=== PATIENT | male | born 1945 | race Caucasian/White ===

== ENCOUNTER 2024-02-24 23:26 | Emergency (ER) | payer OTHER, SELFPAY ==
--- NOTE | ~2024-02-24 | CT_ITS ---
Clinical Indication: Chest pain CT Scan of the Chest with Contrast: Technique: Contiguous sections were acquired throughout the chest after intravenous administration of 100 cc of Omnipaque 350. Dose reduction technique was used on this scan by utilizing automated expos ure control and iterative reconstruction technique. The dose-length product (DLP) was 235.57 mGy-cm. Findings: There is no evidence of any significant mediastinal, hilar or axillary lymphadenopathy. There is no f illing defect in the pulmonary arterial tree to suggest pulmonary embolus. There is no evidence of ao rtic dissection or aneurysm. There is no evidence of pleural or pericardial effusion. Calcified right basilar pleural plaque prese nt. There is focal right basilar scarring or atelectasis. There is linear scarring left lung base. No pul monary nodule or consolidation present otherwise. Images through the upper abdomen reveal small nonobstructing right renal stones. There is extensive a therosclerotic calcification of the visualized abdominal aorta. Impression: No evidence of pulmonary embolus, aortic dissection, or aortic aneurysm. No significant pulmonary abnormality. Calcified right basilar pleural plaque. Reviewed, dictated and finalized at location . Impression: No evidence of pulmonary embolus, aortic dissection, or aortic aneurysm. No significant pulmonary abnormality. Calcified right basilar pleural plaque.
[2024-02-24 23:35] VITALS: BP 207/80; PULSE 65; RESP 14; TEMP 36.6; O2SAT 100
--- NOTE | 2024-02-24 23:36 | ECG_ITS ---
Test Date: 2024-02-24 23:38:01 Measurements Intervals [place] Rate: 60 P: 66 CA: 143 QRS: -21 QRSD: 148 T: 54 QT: 461 QTc: 462 Interpretive Statements SINUS RHYTHM RIGHT BUNDLE BRANCH BLOCK CONSIDER INFERIOR INFARCT, AGE INDETERMINATE ABNORMAL ECG No previous ECG available for comparison Electronically Signed On 02-25-2024 05:46:39 CDT by Chidi Blackwood D.O.
[2024-02-24 23:38] VITALS: PULSE 64
[2024-02-24 23:39] VITALS: BP 178/69; PULSE 60; RESP 17; TEMP 36.4; O2SAT 100
--- NOTE | 2024-02-24 23:40 | ED.CHESTPAIN ---
HPI - Chest Pain General Chief Complaint: Chest Pain Stated Complaint: chest pain Time Seen by Provider: 02/24/24 23:28 History of Present Illness HPI narrative: 78-year-old male history of valve replacement and triple-vessel CABG approximately 8 years ago presenting to the emergency department for evaluation for right-sided chest pain that has been ongoing for the past 5 days. Patient states the pain did worsen today. Patient denies any associated shortness of breath with this. Patient does suspect this is a muscular strain because he did lift a heavy bag of grain the day that the pain started. Related Data Home Medications Medication Instructions Recorded Confirmed Nitrol 02/24/24 amlodipine 5 mg tablet mg 02/24/24 atorvastatin 40 mg tablet 40 mg PO DAILY 02/24/24 citalopram 20 mg tablet 20 mg PO DAILY 02/24/24 clopidogrel 75 mg tablet (Plavix) mg 02/24/24 metoprolol tartrate 50 mg tablet 50 mg PO BID 02/24/24 Allergies Allergy/AdvReac Type Severity Reaction Status Date / Time meperidine [From Demerol] Allergy Anaphylaxis Verified 02/24/24 23:44 Review of Systems Review of Systems: All systems reviewed & are unremarkable except as noted in HPI and below Exam Narrative: APPEARANCE: Well appearing, no pain, no distress, well-nourished. HEAD: normocephalic, atraumatic. EYES: PERRLA/EOMI, conjunctivae clear. NOSE: Normal no drainage EARS:TMS clear with good light reflex. THROAT: Pharynx clear, no exudate. NECK: Supple. No adenopathy, no masses. RESPIRATORY: Airway patent, respirations nonlabored. Clear to auscultation bilaterally, no rales, rhonchi, wheezing. CARDIOVASCULAR: Regular rate and rhythm without murmurs rubs or gallops. ABDOMINAL: Soft, nontender, nondistended, normal bowel sounds MUSCULOSKELETAL: Chest wall tenderness NEURO: Alert. Cranial nerves II through XII intact. Grossly intact SKIN: Warm, dry. Normal Color Course Course Emergency Course: Patient family updated the results of the workup they are comfortable with plan for discharge home. Vital Signs Vital signs: Vital Signs Temperature 97.9 F 02/24/24 23:35 Pulse Rate 65 02/24/24 23:35 Respiratory Rate 14 02/24/24 23:35 Blood Pressure 207/80 H 02/24/24 23:35 Pulse Oximetry 100 02/24/24 23:35 Oxygen Delivery Room Air 02/24/24 23:35 Temperature 98.9 F 02/25/24 03:29 Pulse Rate 86 02/25/24 03:29 Respiratory Rate 16 02/25/24 03:29 Blood Pressure 117/78 02/25/24 03:29 Pulse Oximetry 98 02/25/24 03:29 Oxygen Delivery Room Air 02/24/24 23:38 MDM - Chest Pain MDM Narrative Medical decision making narrative: 78-year-old male present to the emergency department for evaluation for right-sided chest pain. Patient is afebrile with no leukocytosis and a stable hemoglobin of 12.8. Patient's D-dimer was elevated at 0.73 but patient had no acute pulmonary embolism. Patient's potassium was mildly elevated at 5.1 sodium was 131. Patient had no other acute abnormalities on his CMP patient had negative delta troponins. EKG showed right bundle-branch but no evidence of acute STEMI. Patient's pain was resolved with pain medications both unchanged by nitro. Patient's pain has been ongoing constantly for the past 5 days, low concern for ACS. Differential Diagnosis Differential diagnosis: Likely pneumothorax, stable angina, unstable angina pectoris, atypical chest pain, st elevation myocardial infarction, costochondritis, chest pain, biliary colic and other Lab Data Attestation: I reviewed the patient's lab results. 02/24/24 23:50 02/24/24 23:50 Labs: Lab Results 02/24/24 02/25/24 Range/Units 23:50 02:38 WBC 4.9 (4.5-10.0) K/mm3 RBC 4.18 L (4.6-6.20) M/mm3 Hgb 12.8 L (14.0-18.0) g/dL Hct 39.0 L (42.0-52.0) % MCV 93.3 (80-100) fl MCH 30.6 (26-34) pg MCHC 32.8 (32-36) g/dl RDW 15.0 H (11.5-14.5) % Plt Count 172 (150-375) k/mm3
--- NOTE | 2024-02-24 23:45 | PC.NURSE ---
pt currently unable to provide medication list
[2024-02-24] MEDS: NITROGLYCERIN SL 0.4 MG TABLET SUBLINGUAL (23:47)
[2024-02-24] MEDS: ASPIRIN 81 MG CHEWABLE TABLET 324 MG PO (23:47)
[2024-02-24 23:56] LABS: Basophils Percent Auto 0.6 % (0.2-1.2); Eosinophils Absolute Auto 0.1 K/mm3 (0-0.3); Eosinophils Percent Auto 1.4 % (0-4.4); Hemoglobin 12.8 g/dL (14.0-18.0); Immature Granulocyte Absolute 0.01 K/mm3 (0.00-0.031); Immature Granulocyte Percent A 0.2 % (0-0.5); Lymphocytes Absolute Auto 0.56 K/mm3 (0.9-3.2); Lymphocytes Percent Auto 11.5 % (18.3-44.2); Mean Corpuscular HGB Conc 32.8 g/dl (32-36); Mean Corpuscular Hemoglobin 30.6 pg (26-34); Mean Corpuscular Volume 93.3 fl (80-100); Monocytes Absolute Auto 0.6 K/mm3 (0.1-0.6); Monocytes Percent Auto 11.5 % (2.6-8.5); Neutrophils Absolute Auto 3.6 K/mm3 (1.3-6.7); Neutrophils Percent Auto 74.8 % (45.5-73.1); Platelet Count Result 172 k/mm3 (150-375); Red Blood Count 4.18 M/mm3 (4.6-6.20); White Blood Count 4.9 K/mm3 (4.5-10.0)
[2024-02-25 00:05] VITALS: BP 154/77; PULSE 58; RESP 18; O2SAT 98
[2024-02-25 00:06] LABS: Alanine Aminotransferase 19 U/L (6-50); Albumin Level 4.2 g/dL (3.5-5.1); Alkaline Phosphatase 77 U/L (38-126); Anion Gap 9 mmol/L (4-12); Aspartate Amino Transferase 35 U/L (17-59); Bilirubin,Total 0.3 mg/dL (0.2-1.3); Blood Urea Nitrogen 34 mg/dL (9-20); Calcium 8.9 mg/dL (8.4-10.2); Carbon Dioxide 23 mmol/L (22-30); Chloride 99 mmol/L (98-107); Estimated CRCL calculation 39 ml/min; Estimated Glomerular Filt Rate 53; Glucose 124 mg/dL (65-110); Potassium 5.1 mmol/L (3.4-5.0); Sodium 131 mmol/L (137-145)
[2024-02-25 00:11] LABS: D Dimer 0.73 ug/mL (<0.48)
[2024-02-25] MEDS: HYDROmorphone HCL INJ (*CRX) 1 MG/ML SYR 0.5 MG IV PUSH (00:16)
[2024-02-25 00:19] LABS: Troponin I 0.012 ng/mL (0.000-0.034)
[2024-02-25 01:00] VITALS: BP 164/73; PULSE 60; RESP 15; O2SAT 97
[2024-02-25 02:00] VITALS: BP 160/84; PULSE 61; RESP 18; O2SAT 97
--- NOTE | 2024-02-25 02:35 | ECG_ITS ---
Test Date: 2024-02-25 02:44:08 Measurements Intervals [place] Rate: 58 P: 62 [place]: 147 QRS: -34 QRSD: 146 T: 67 QT: 471 QTc: 467 Interpretive Statements SINUS BRADYCARDIA RIGHT BUNDLE BRANCH BLOCK INFERIOR INFARCT, AGE INDETERMINATE ABNORMAL ECG Compared to ECG 02/24/2024 23:38:01 NO SIGNIFICANT CHANGE Electronically Signed On 02-25-2024 05:47:56 CDT by Chidi Blackwood D.O.
[2024-02-25 03:03] LABS: Troponin I 0.016 ng/mL (0.000-0.034)
[2024-02-25 03:29] VITALS: BP 117/78; PULSE 86; RESP 16; TEMP 37.2; O2SAT 98
== END 2024-02-25 03:30 | disposition home or self-care (01) ==
PROVIDERS: Emergency Provider Emergency Medicine
DX: R07.9 Chest pain, unspecified (principal); Z95.1 Presence of aortocoronary bypass graft; Z95.2 Presence of prosthetic heart valve; Z79.02 Long term (current) use of antithrombotics/antiplatelets; Z79.899 Other long term (current) drug therapy
CPT/HCPCS: 36415; 71275; 80053; 84484; 85025; 85380; 93005; 96374; 99284; A9270; J1170; Q9967

== ENCOUNTER 2024-11-06 17:40 | Emergency (ER) | payer MEDICARE, SELFPAY ==
[2024-11-06] VITALS (13 sets, daily range): BP systolic 97–147; BP diastolic 45–68; PULSE 44–59; RESP 13–18; TEMP 36.4; O2SAT 98–100
--- NOTE | ~2024-11-06 | CT_ITS ---
EXAMINATION: CTA chest PE protocol DATE: 11/06/2024 21:45 INDICATION: chest pain, near syncope, elev dimer TECHNIQUE: Computed tomography angiography (CTA) of the chest was performed with 100 mL Omnipaque-350 intravenous contrast timed to evaluate the pulmonary arteries. Coronal maximum intensity projection 3D-reconstructions were created by the technologist. The dose-length product (DLP) was 270.28 mGy-cm. Automated exposure control and iterative reconstruction technique were employed. COMPARISON: 02/24/2024. FINDINGS: Lung parenchyma and airways: Biapical pleural scarring. Bibasilar scarring and septal thickening. Mil d scattered groundglass opacities and scattered air cysts. Patent airways. Pleura: Pleural calcification. Thoracic inlet, axillae and chest wall: Unremarkable. Thoracic aorta: No significant dilation. No dissection. Atherosclerotic calcifications. Mediastinum: Dilated central pulmonary arteries as can be seen with pulmonary hypertension. Heart and pericardium: Cardiomegaly. Aortic valve replacement. Mitral calcification. Coronary artery calcifications: Moderate. Upper abdomen: No significant finding. Bones: No acute osseous finding. Degenerative changes in the shoulders. Pulmonary arteries: Study quality: Adequate. No pulmonary emboli detected. IMPRESSION: No CT evidence of acute pulmonary embolus. 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 Reviewed, dictated and finalized at location K.
--- NOTE | ~2024-11-06 | XR_ITS ---
EXAMINATION: XR chest 1V Exam Date/Time: 11/06/2024 20:49 CDT HISTORY: CHEST PAIN Comparison: None. RESULT: Lines, tubes, and devices: Intact sternotomy wires. Cardiac valve replacement. Lungs and pleura: Streaky and patchy bibasilar opacities. Mild bilateral costophrenic angle blunting . Mild peripheral reticular opacities. Cardiomediastinal silhouette: Unremarkable. Other: No acute osseous or upper abdominal finding. Degenerative changes in the bilateral shoulders, severe on the left IMPRESSION: Mild edema versus interstitial change. Trace bilateral pleural effusions or chronic pleural blunting. Reviewed, dictated and finalized at location K. IMPRESSION: Mild edema versus interstitial change. Trace bilateral pleural effusions or chr onic pleural blunting.
--- NOTE | ~2024-11-06 | CT_ITS ---
EXAMINATION: CTA brain carotid DATE: 11/06/2024 20:53 INDICATION: dizziness, near syncope w/ 5 falls TECHNIQUE: Computed tomographic angiography (CTA) of the head was performed without and with 100 mL O mnipaque-350 intravenous contrast. CTA of the neck was performed with intravenous contrast. Automated exposure control and iterative reconstruction technique were employed. The dose-length product was 2 742.89 mGy-cm. Maximum intensity projection and volume rendered 3D-reconstructions were created by stefano neff technologist on a separate workstation. COMPARISON: None. FINDINGS: CT BRAIN: No acute large vessel infarct, intracranial hemorrhage, mass, or hydrocephalus. Mild atrophy and education dean bella white matter change. Atherosclerotic intracranial calcification. Bilateral basal ganglia calcific ation. CTA HEAD: No large vessel occlusion, aneurysm, high flow vascular malformation, nidus or extravasation. Multifo nanci moderate and severe short segment stenoses in the posterior circulation, most notably at the basi lar tip. 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 Heavy atherosclerotic calcific ation of the cavernous portions of the carotids, with mild-moderate stenoses. Additional scattered ar eas of atherosclerotic narrowing elsewhere in the cranial circulation. Patent cerebral veins. Symmetr ic parenchymal enhancement. CTA NECK: Aortic arch and proximal great vessels: Normal arch anatomy. Atherosclerotic calcifications at the vi sualized aortic arch and proximal great vessels. Right common carotid, carotid bifurcation, and internal carotid artery: Calcified atherosclerotic nicole que at the carotid bifurcation.There is 76% stenosis of the proximal right internal carotid artery re lative to normal distal artery lumen diameter (NASCET criteria). Left common carotid, carotid bifurcation, and internal carotid artery: Calcified atherosclerotic plaq ue at the carotid bifurcation.There is 45% stenosis of the proximal left internal carotid artery rela tive to normal distal artery lumen diameter (NASCET criteria). Vertebral arteries: Severe stenosis of the origin of the dominant left vertebral artery. The right ve rtebral artery is hypoplastic. No flow is detected in the proximal right vertebral artery from its or igin to the level of C6. Other findings: Multilevel degenerative disease in the cervical spine. Biapical pleural scarring. IMPRESSION: No acute intracranial process. No large vessel intracranial occlusion or aneurysm. 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 Severe stenosis of the proximal right internal carotid artery at the bifurcation. Severe stenosis of the origin of the left vertebral artery. Hypoplastic right vertebral artery, with slow or absent flow proximally, and reconstitution/visualiza tion at the level of C6. Reviewed, dictated and finalized at location K. IMPRESSION: No acute intracranial process. No large vessel intracranial occlusion or aneurysm. 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 Severe stenosis of the proximal right internal carotid artery at the bifurcatio n. Severe stenosis of the origin of the left vertebral artery. Hypoplastic right vertebral artery, with slow or absent flow proximally, and re constitution/visualization at the level of C6.
--- NOTE | 2024-11-06 17:54 | ECG_ITS ---
Test Date: 2024-11-06 17:58:18 Measurements Intervals [place] Rate: 52 P: 68 RI: 146 QRS: -51 QRSD: 149 T: 73 QT: 490 QTc: 458 Interpretive Statements SINUS BRADYCARDIA WITH ATRIAL PREMATURE COMPLEX RIGHT BUNDLE BRANCH BLOCK LEFT ANTERIOR FASCICULAR BLOCK BASELINE ARTIFACT- I, II, III, AVR, AVL, V1-V2 ABNORMAL ECG Compared to ECG 02/25/2024 02:44:08 Left anterior fascicular block now present Electronically Signed On 11-06-2024 19:31:36 CDT by Chidi Blackwood D.O.
--- OUTSIDE RECORDS SUMMARY | 2024-11-06 18:18 | XMS_ITS | Encounter Summary ---
Author Organization [facility] Address [address] [place] [address] Care Team Providers Care Art Psychotherapist Name Role Phone Emeka Ibanez MD Primary Care Provider [phone] Reason for Visit * Reason Comments Question Encounter Details Date Type Department Care Team (Late st Contact Info) Description 09/07/2024 Telephone [facility] Internal Medicine [address] [phone] Emeka Ibanez [place] [id number] [place] [address] [address] [place] [address] Question Social History Tobacco Use Types Packs/Day Years Used Date Smoking Tobacco: Former Cigarettes Q uit: 06/08/2002 Passive Smoke Exposure: Past Smokeless Tobacco: Never Alcohol Use Standard Drinks/Week Comments No 0 (1 standard drink = 0.6 oz pur e alcohol) Financial Resource Strain Answer Date R ecorded How hard is it for you to pa y for the very basics like food, housing, medical care, and heating? Not hard at all 2022 Food Insecurity Answer Date Recorded In the past 12 months, have you worried that your food would run out before you had money to buy more? Never true 2022 In the past 12 months, did y ou run out of food and didn't have money to buy more? Never true 2022 Transportation Needs Answer Date Record ed In the past 12 months, has l ack of transportation kept you from medical appointments or from getting medications? 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 No answer. No voicemail or answering machine. Will continue to try to contact. If patient/caregiver calls back, contact center please transfer caller to clinic back line. Rosa * Telephone Encounter - Mario Alberto Hinton - 09/07/2024 11:34 AM CDT Copied from [facility] #[id number]. Topic: Patient or Caregiver Communication Request >> Sep 07, 2024 11:28 AM Mario Alberto Garcia wrote: Patient or Caregiver requesting that a message be sent to Care Team Caller: Kermit Noe Patient/Caregiver Callback Number: [phone] Call Notes: Patient received a call (11.33am) and is requesting a callback regarding his video visit. documented in this encounter Plan of Treatment Not on file documented as of this encounter Visit Diagnoses Not on filedocumented in this encounter Care Teams Art Psychotherapist Relationship Specialty Start [place] [address] [place] [address] PCP - General 10/09/05 documented as of this encounter
--- OUTSIDE RECORDS SUMMARY | 2024-11-06 18:19 | XMS_ITS | Continuity of Care Document ---
Author Organization [facility] Address [address] [place] [address] Phone Care Team Providers Care Boat Fueler Name Role Phone Unavailable Unavailable Unavailable Advance Directives Directive Yes / No Effective Date File Name No Information Encounters Encounter Description Practice Location Reason(s) For Visit Diagnoses Date Provider Providers Copied on Encounter [facility], [address], [place], [place], [id number], [place] tel:[phone] [address] Formerly named [facility] No Information 200 0 No Information Family History Family Member Type Diagnosis Age At Onset No Information Payers Payer name Insurance type Covered libertarian ID Authoriza tion(s) No Information Social History Type Description Quantity Date Captured Comments Sex Male Smoking Status No Information Chief Complaint And Reason For Visit No Information Reason For Referral Reason For Referral No Information History Of Present Illness Encounter Date Complaint History Of Prese nt Illness No Information Functional Status Date Functional Assessmen t No Information Instructions Date Instruction Additional Infor mation No Information Assessments Type Assessment Date No Information Patient Care Teams Name Effective Dates (start - stop) Status Members No Information
--- OUTSIDE RECORDS SUMMARY | 2024-11-06 18:19 | XMS_ITS | Encounter Summary ---
Author Organization [facility] Address [address] [place] [address] Care Team Providers Care Kettle Tender Name Role Phone Emeka Ibanez MD Primary Care Provider [phone] Encounter Details Date Type Department Care Team (Late st Contact Info) Description 08/12/[address] 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
--- OUTSIDE RECORDS SUMMARY | 2024-11-06 18:19 | XMS_ITS | Encounter Summary ---
Author Organization [facility] Address 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 Gender Identity Not on file Sexual Orientation Not on file documented as of this encounter Last Filed Vital Signs Vital Sign Reading Time Taken Comments Blood Pressure 160/80 07/19/2004 10:00 AM ROCKET TEST FIRE WORKER Pulse - - Temperature 38 C (100.4 F) 07/19/2004 10:00 AM ROCKET TEST FIRE WORKER Respiratory Rate - - Oxygen Saturation - - Inhaled Oxygen Concentration - - Weight 90.3 kg (199 lb) 07/19/2004 10:00 AM ROCKET TEST FIRE WORKER Height - - Body Mass Index - - documented in this encounter Plan of Treatment Not on file documented as of this encounter Visit Diagnoses Not on filedocumented in this encounter Care Teams Housing Counselor Relationship Specialty Start Date End Date Emeka Ibanez [place] [id number] [place] [id number] PCP - General 10/09/05 documented as of this encounter
--- OUTSIDE RECORDS SUMMARY | 2024-11-06 18:19 | XMS_ITS | Encounter Summary ---
Author Organization [facility] Address [address] [place] [address] Care Team Providers Care Clinic Physician Name Role Phone Emeka Ibanez MD Primary Care Provider [phone] Encounter Details Date Type Department Care Team (Late st Contact Info) Description 05/12/2005 Outpatient Historical [facility] Internal Medicine [address] [phone] Emeka Ibanez MD [address] [place] [address] [id number] Social History Tobacco Use Types Packs/Day Years Used Date Smoking Tobacco: Never Assessed Sex and Gender Information Value Date Recorded Sex Assigned at Not on file Legal Sex Male 5:22 AM TALENT ACQUISITION RELATIONSHIP MANAGER Gender Identity Not on file Sexual Orientation Not on file documented as of this encounter Last Filed Vital Signs Vital Sign Reading Time Taken Comments Blood Pressure 150/80 05/12/2005 3:45 PM TALENT ACQUISITION RELATIONSHIP MANAGER Pulse - - Temperature - - Respiratory Rate - - Oxygen Saturation - - Inhaled Oxygen Concentration - - Weight 88.9 kg (196 lb) 05/12/2005 3:45 PM TALENT ACQUISITION RELATIONSHIP MANAGER Height - - Body Mass Index - - documented in this encounter Plan of Treatment Not on file documented as of this encounter Visit Diagnoses Not on filedocumented in this encounter Care Teams Clinic Physician Relationship Specialty Start Date End Date Emeka Ibanez MD [address] [place] [address] [id number] PCP - General 10/09/05 documented as of this encounter
--- OUTSIDE RECORDS SUMMARY | 2024-11-06 18:19 | XMS_ITS | Encounter Summary ---
Author Organization [facility] Address 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 TIRE INSPECTOR Gender Identity Not on file Sexual Orientation Not on file documented as of this encounter Plan of Treatment Not on file documented as of this encounter Procedures Procedure Name Priority Date/Time Associated Diagnosis Comments CBC WITH DIFFERENTIAL Routine 07/06/2006 8:51 PM PASSENGER TIRE INSPECTOR CBC WITH DIFFERENTIAL Routine 07/06/2006 8:51 PM PASSENGER TIRE INSPECTOR PROTIME-INR Routine 07/06/2006 8:51 PM PASSENGER TIRE INSPECTOR C-REACTIVE PROTEIN Routine 07/06/2006 8: 51 PM PASSENGER TIRE INSPECTOR BASIC METABOLIC PANEL Routine 07/06/2006 8:51 PM PASSENGER TIRE INSPECTOR documented in this encounter Results * CBC WITH DIFFERENTIAL (07/06/2006 8:51 PM PASSENGER TIRE INSPECTOR) NEUTROPHILS 66 45 - 70 % INTERFAC E SYSTEM LYMPHOCYTES 26 16 - 45 % INTERFAC E SYSTEM MONOCYTES 7 3 - 13 % INTERFACE SYSTEM EOSINOPHILS 1 0 - 7 % INTERFAC E SYSTEM BASOPHILS 0 0 - 2 % INTERFACE SYSTEM NEUTROPHIL ABSOLUTE 3.01 1.90 - 7.00 K/uL INTERFACE SYSTEM LYMPHOCYTE ABSOLUTE 1.17 0.70 - 4.50 K/uL INTERFACE SYSTEM MONOCYTE ABSOLUTE 0.32 0.10 - 1.30 K/uL INTERFACE SYSTEM EOSINOPHIL ABSOLUTE 0.03 0.00 - 0.70 K/uL INTERFACE SYSTEM BASOPHILS ABSOLUTE 0.02 0.00 - 0.20 K/uL INTERFACE SYSTEM 07/06/2006 8:51 PM PASSENGER TIRE INSPECTOR Nabil Shukla MD HEMATOLOGY ORDERABLES Edited INTERFACE SYSTEM Refer to clinic/hospital department * (ABNORMAL) CBC WITH DIFFERENTIAL (07/06/2006 8:51 PM PASSENGER TIRE INSPECTOR) WBC 4.6 4.0 - 9.8 K/uL INTERFACE SYSTEM RBC 4.70 4.50 - 5.40 M/uL INTERFACE SYSTEM HEMOGLOBIN 14.1 13.6 - 16.5 g/dL INTERFACE SYSTEM HEMATOCRIT 39.9(L) 40.0 - 48.0 % INTERFACE SYSTEM MCV 84.9 82.0 - 99.0 fL INTERFACE SYSTEM MCH 30.0 27.2 - 32.6 pg INTERFACE SYSTEM MCHC 35.3 31.5 - 35.5 % INTERFACE SYSTEM RDW 13.2 11.5 - 14.5 % INTERFACE SYSTEM RDW-STDEV 41.4 37.1 - 48.7 fL INTERFACE SYSTEM PLATELETS 167 140 - 350 K/uL INTERFACE SYSTEM MPV 11.8 9.3 - 12.4 fL INTERFACE SYSTEM 07/06/2006 8:51 PM PASSENGER TIRE INSPECTOR Nabil Shukla MD HEMATOLOGY ORDERABLES Edited INTERFACE SYSTEM Refer to clinic/hospital department * C-REACTIVE PROTEIN (07/06/2006 8:51 PM PASSENGER TIRE INSPECTOR) CRP 0.3 0.0 - 0.8 mg/dL INTERFACE SYSTEM 07/06/2006 8:51 PM PASSENGER TIRE INSPECTOR Nabil Shukla MD CHEMISTRY ORDERABLES Edited Performing Organization Address [facility] de Phone Number INTERFACE SYSTEM Refer to clinic/hospital department * PROTIME-INR (07/06/2006 8:51 PM PASSENGER TIRE INSPECTOR) PROTIME 14.4 12.7 - 15.1 Seconds INTERFACE SYSTEM INR 1.1 0.9 - 1.1 INTERFACE SYSTEM Comment: INR Therapeutic Range: Adult: 2.0 - 3.0 for pulmonary embolism or prophylaxis against venous thrombosis or systemic embolization. 2.0 - 3.0 for patients with tissue heart valves. 2.5 - 3.5 for patients with mechanical heart valves or post [place]. Pediatric (12 years and under): 1.5 - 3.0 Although the target range in children is not well established , INR values of 1.5 - 3.0 are recommended for most patients. Higher values have been used in children with prosthetic cardiac valves and hereditary clotting disorders. (<3 days) therapeutic ranges have not been established. 07/06/2006 8:51 PM PASSENGER TIRE INSPECTOR Nabil Shukla MD HEMATOLOGY ORDERABLES Edited Performing Organization Address [facility] Co de Phone Number INTERFACE SYSTEM Refer to clinic/hospital department * (ABNORMAL) BASIC METABOLIC PANEL (07/06/2006 8:51 PM PASSENGER TIRE INSPECTOR) GLUCOSE 114(H) 65 - 99 mg/dL INTERFACE SYSTEM CREATININE 1.07 0.67 - 1.17 mg/dL INTERFACE SYSTEM CALCIUM 8.7 8.4 - 10.2 mg/dL INTERFACE SYSTEM BUN 12 6 - 20 mg/dL INTERFACE SYSTEM SODIUM 142 135 - 145 mmol/L INTERFACE SYSTEM POTASSIUM 3.8 3.5 - 4.9 mmol/L INTERFACE SYSTEM CHLORIDE 106 96 - 108 mmol/L INTERFACE SYSTEM CO2 25 22 - 30 mmol/L INTERFACE SYSTEM GFR, >60 >=60 mL/min/1. 7 sq meter INTERFACE SYSTEM GFR >60 >=60 mL/min/1. 7 sq meter INTERFACE SYSTEM Comment: Estimated GFR rate interpretative information for both Americans and non- Americans is available on the [facility] Intranet at: [email or web address] Select: Lab Policies and Procedures Select: Reference Ranges - GFR 07/06/2006 8:51 PM PASSENGER TIRE INSPECTOR Nabil Shukla MD CHEMISTRY ORDERABLES Edited INTERFACE SYSTEM Refer to clinic/hospital department documented in this encounter Visit Diagnoses Diagnosis Unspecified transient cerebral ischemia- Primary documented in this encounter Care Teams Cooker Helper Relationship Specialty Start [place] [address] [address] PCP - General 10/09/05 documented as of this encounter
--- OUTSIDE RECORDS SUMMARY | 2024-11-06 18:19 | XMS_ITS | Encounter Summary ---
Author Organization [facility] Address [address] [place] [address] Care Team Providers Care Supervisor Steno Pool Name Role Phone Emeka Ibanez MD Primary Care Provider [phone] Encounter Details Date Type Department Care Team (Latest Contact Info) Description 10/09/2005 Outpatient Historical [facility] CARD ASSEMBLY LINE INSPECTOR JNabil Padilla MD NO ADDRESS ON FILE Other Chest Pain (Primary Dx) Social History Tobacco Use Types Packs/Day Years Used Date Smoking Tobacco: Never Assessed Sex and Gender Information Value Date Recorded Sex Assigned at Not on file Legal Sex Male 5:22 AM GRANTS SPECIALIST Gender Identity Not on file Sexual Orientation Not on file documented as of this encounter Plan of Treatment Not on file documented as of this encounter Visit Diagnoses Diagnosis Other chest pain- Primary documented in this encounter Care Teams Supervisor Steno Pool Relationship Specialty Start [place] [address] [id number] PCP - General 10/09/05 documented as of this encounter
--- OUTSIDE RECORDS SUMMARY | 2024-11-06 18:19 | XMS_ITS | Encounter Summary ---
Author Organization [facility] Address [address] [place] [address] Care Team Providers Care Agricultural Commodities Inspector Name Role Phone Emeka Ibanez MD Primary Care Provider [phone] Encounter Details Date Type Department Care Team (Late st Contact Info) Description 09/18/2005 Orders Only [facility] Internal Medicine [address] [phone] Emeka Ibanez [place] [id number] [place] [address] Social History Tobacco Use Types Packs/Day Years Used Date Smoking Tobacco: Never Assessed Sex and Gender Information Value Date Recorded Sex Assigned at Not on file Legal Sex Male 5:22 AM OIM ARCHITECT Gender Identity Not on file Sexual Orientation Not on file documented as of this encounter Plan of Treatment Not on file documented as of this encounter Visit Diagnoses Not on filedocumented in this encounter Care Teams Agricultural Commodities Inspector Relationship Specialty Start Date End Date Emeka Ibanez MD [address] [place] [address] [id number] PCP - General 10/09/05 documented as of this encounter
--- OUTSIDE RECORDS SUMMARY | 2024-11-06 18:19 | XMS_ITS | Clinical Summary ---
Author Organization [facility] Address [address] [place] [address] Care Team Providers Care It Security Manager Name Role Phone Emeka Ibanez MD Primary Care Provider [phone] Allergies Active Allergy Reactions Criticality Noted Date Comments Lactose Abdominal Pain Low 01/21/2016 Meperidine Other (See Comments) 04/08/2006 I cannot urinate after using demoral Medications amoxicillin-clavulanate (AUGMENTIN) 875-125 mg tablet Take 1 Tablet by mouth 2 times daily. 024 Active cyclobenzaprine (FLEXERIL) 10 mg tablet TAKE 1 TABLET BY MOUTH TWICE A DAY NEEDED FOR MUSCLE SPASM 024 Active nitroglycerin (NITROSTAT) 0.4 mg Tablet, SublingualIndications:S table angina,Atherosclerosis of [place] coronary artery of [place] heart without angina pectoris PLACE 1 TABLET UNDER TONGUE EVERY 5 MINUTES NEEDED FOR CHEST PAIN. 75 Tablet 1 024 Active amLODIPine (NORVASC) 5 mg tabletIndications:Prasanna n hypertension with CKD (chronic kidney disease) stage III (CMS/HCC) Take 1 Tablet (5 mg) by mouth daily. 100 Tablet 3 025 Active atorvastatin (LIPITOR) 40 mg tabletIndications:Pure hypercholesterolemia Take 1 Tablet (40 mg) by mouth daily. 100 Tablet 3 025 Active citalopram (CeleXA) 20 mg tabletIndications:Major depressive disorder, recurrent episode, mild Take 2 Tablets (40 mg) by mouth daily. IMPROVES FRUSTRATION / IRRITABILITY 200 Tablet 3 025 Active clopidogreL (PLAVIX) 75 mg TabletIndications:Old myocardial infarction TAKE ONE TABLET BY MOUTH ONCE DAILY 100 Tablet 3 025 Active metoprolol tartrate (LOPRESSOR) 50 mg tabletIndications:[place] n hypertension with CKD (chronic kidney disease) stage III (CMS/HCC) Take 1 Tablet (50 mg) by mouth 2 times daily. 200 Tablet 3 025 Active HYDROcodone-acetaminoph en (NORCO) 10-325 mg TabletIndications:Prima ry osteoarthritis involving multiple joints Take 2 Tablets by mouth every 8 hours as needed for Pain, Moderate. Max Daily Amount: 6 Tablets 180 Tablet 025 Active HYDROcodone-acetaminoph en (NORCO) 10-325 mg TabletIndications:Prima ry osteoarthritis involving multiple joints Take 2 Tablets by mouth every 8 hours as needed for Pain, Moderate. Max Daily Amount: 6 Tablets 180 Tablet 025 2024 Disconti nued(Mercedes norton) Active Problems Patient Care Coordination No te Formatting of this note migh t be different from the original. ANNUAL MEDICARE EXAM 03/27/21 [id number] -- 03/14/24 CARDIO->DR MORENO GI->DR ALCON FOX HAND ORTHO->DR LEEANNA PEDRAZA ORTHO->DR MARY CARMEN GASPAR VASC->DR LOCKWOOD SURG->DR RDZ DERM->TBD DPM->DR EVERETT Problem Noted Date Diagnosed Date Blood test declined 09/07/2024 Purpura senilis 09/29/2022 Uncomplicated opioid dependence 08/21/2022 Overview (09/29/2022): -Desires to cut down on use /has had unsuccessful attempts to reduce use in the past/ has tolerance and withdrawal symptoms if stopped Prediabetes 03/27/2021 Hyperkalemia 03/27/2021 Overview (01/15/2023): K -- 07/27 6.0 -- 03/28 5.7-.- PLAN CONT'D MONITORING -- 01/28 6.3->stop lisinopril, hydrate w/ lytes, repeat -- 01/28 6.0 - PLAN CONT'D MONITORING Varicella zoster virus (VZV) vaccination decline d 06/22/2020 Bilateral carotid artery stenosis 09/01/2018 Overview (09/13/2021): 01/22 CBFS->- Right internal carotid: Calcific plaque. Lesion: There is a moderate, 50-79% stenosis.- Left internal carotid: Irregular heterogeneous plaque. Lesion: There is a moderate, 50-79% stenosis. 1. The bilateral vertebral arteries are patent with normal antegrade flow.2. No change from the prior study. Aortic atherosclerosis 09/01/2018 Hx of CABG 10/05/2015 Overview (10/05/2015): 07/2015 S/P AVR 10/05/2015 Overview (10/05/2015): 07/2015 Gastroesophageal reflux disease without esophagi tis 05/30/2015 Anemia, chronic disease 03/07/2015 Overview (2021): HB -- 06/16 14.7 -- 02/20 12.6 -- 01/21 13.7 -- 02/23 12.7 -- 03/27 11.5 -- 03/28 12.1 01/21 B12 NL (420) 01/21 IRON PANEL NL Moderate episode of recurrent major depressive d isorder 04/20/2013 Overview (04/20/2013): LEXAPRO HELPFUL IN PAST-STOPPED DUE TO COST 05/15 STARTED CITALOPRAM 20/D, AND ALPRAZOLAM .25 NEEDED 06/16 SYMPTOMS IMPROVED ON CITALOPRAM 20 MG DAILY -REFILLED ALPRAZOLAM #30 X 0->01/02/10 Hx of epididymitis 04/20/2013 Overview (09/25/2016): 04/20 PRESCRIBED DOXY 11/20 RECURRENT RIGHT SIDED SXS->PRESCRIBED DOXY->WILL ARR URO IF SXS PERSIST 09/22 SCROTAL US->Sonographically normal testicles and doppler images. No clear evidence of inflammation or testicular torsion. Stage 3b chronic kidney disease 11/19/2011 Overview (02/13/2023): GFR (NL>60) -- 06/16 >60 -- 03/16 >60 -- 06/17 55 -- 12/15 48 -- 06/18 54 -- 12/16 59 -- 11/17 85 -- 07/21 70 -- 01/18 45 -- 02/18 48 -- 07/22 48 -- 02/20 49 -- 07/24 >60 -- 02/21 44 -- 02/22 46 -- 02/23 30->?ETIOL->REPEAT 1 MONTH -- 07/27 32 -- 03/27 46 -- 03/28 43 -- 12/28 26->appt in am -- 02/28 43 01/15 RENAL U/S NL Pain in both feet 07/03/2010 Overview (10/28/2013): 06/18 PATIENT ATTRIBUTES TO PAST TRAUMA->PRESCRIBED HYDROCODONE (#30 x 1)- >DECLINES XRAY, ORTHO UNLESS PERSISTS -REFILLED #30 X 0 BY PHONE->10/15/10, 02/20/11 -REFILLED #30 X 2->12/02/1010/19 ARR XRAY, DPM History of colonic polyps 06/06/2010 Overview (03/05/2018): 05/17 CSCOPE->4 MM POLYP->NEXT 05/2015 CSCOPE->POLYP->NEXT 07/31 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 Abnormal myocardial perfusion study. Small size, mild intensity, reversible perfusion defect involving the apical inferior segments suggesting a region of myocardial ischemia. 2. Normal gated SPECT examination. Normal left ventricular wall motion. LVEF 62%. Primary osteoarthritis involving multiple joints 06/25/2008 Overview (06/25/2008): 1983 HX OF KNEE ARTHROSCOPY 10/10 ORTHO (CHASITY) OV->RIGHT KNEE INJECTED EDUCATION PROVIDED-TYLENOL (UP TO 2000 MG/DAY) RECOMMENDED FOR SYMPTOMS Benign hypertension with CKD (chronic kidney disease) stage III 05/27/2008 Overview (07/03/2009): RECOMMENDED HOME MONITORING TO SBP GOAL <130 Prostate cancer screening 10/03/2007 Overview (2021): PSA -- 06/19 0.2 -- 07/21 0.2 -- 07/22 0.2 -- 02/20 0.2-- 01/21 0.2 -- 02/22 0.2 -- 02/23 0.2 -- 03/27 0.2 -- 03/28 0.29 Pure hypercholesterolemia 10/03/2007 Overview (2021): 02/12 [id number] (ON LIPITOR) 2007 STOPPED LIPITOR ON OWN DUE TO COSTS 06/16 [id number] ->STARTED SIMVASTATIN 40 MG/DAY 03/16 [id number] ->ADDED FENOFIBRATE 160 MG/DAY 06/20 LIPITOR 40 MG STARTED / ZOCOR STOPPED 02/22 [id number]->ON HIGH DOSE STATIN WITH FENOFIBRATE 02/23 [id number] 08/24 FENOFIBRATE STOPPED 03/27 [id number] 03/28 [id number] Old myocardial infarction 04/08/2006 Overview (01/02/2010): 08/11-ACUTE IMI->LVEF 40% BY CATH 03/15 CHEMICAL STRESS TEST-NEG, MILD INFERIOR HYPOKINESIS, EF NL (55%) 06/16 RESTARTED STATIN (SIMVASTATIN) AND CRISTIANO-I (LISINOPRIL) 12/15 ON BBLOCKER, STATIN, CRISTIANO-I, ASPIRIN Resolved Problems Problem Noted Date Diagnosed Date Resolved Date Stable angina 09/01/2018 08/10/2023 Hypokalemia 07/10/2018 09/01/2018 Overview (07/10/2018): POTASSIUM -- 02/23 4.9 -- 07/27 6.0->TAISHA Inguinal hernia, right 01/15/201609/13 Screening for endocrine, met abolic and immunity disorder 03/07/2015 01/09/2016 Overview (03/07/2015): 02/20 VIT D NL (38) Subclinical hypothyroidism 07/22/2013 0 03/07/2015 Overview (03/07/2015): TSH -- 07/22 5.58 -- 10/19 2.15 -- 02/20 1.77 Impaired fasting glucose 07/16/201201/2013 Overview (01/13/2013): FBS -- 07/21 111 -- 01/18 90 Atypical nevi 11/10/2011 09/13/2021 Overview (11/10/2011): 11/17 ARRANGED DERM Decreased serum protein level 12/31/2010 07/04/2011 Overview (12/31/2010): PROTEIN (NL 6.2-8.3) -- 06/18 6.5 -- 12/16 6.1 Advanced directives, counseling/discussion 12/29/2010 07/16/2012 Overview (01/02/2011): 12/16 EDUCATION AND FORM PROVIDED Nasal inflammation 12/03/2010 2 Overview (01/02/2011): 11/16->c/o monthly recurrences of nasal irritation, purulent d/c and induration of left outer nose--sxs started several months ago--sxs resolve spontaneously after several days--currently has episode but has 90% resolved--he is convinced that one of his current meds is causing it but forgot which one--he will call back with name of med--he wants to stop rx and observe--he declines cultures, abx or ent opinion at this time 12/16 patient realized lisinopril not cause of inflammation--sxs currently resolved--declines cultures, hsv serologies, ent opinion at this time Right trigger finger 07/03/2010 022 Overview (07/18/2010): 07/19 ORTHO (PEDRAZA) OV Refusal of treatment by patient 01/02/2010 06/03/2019 Overview (12/02/2010): ZOSTAVAX Erectile dysfunction 01/02/2010 011 Overview (07/03/2010): 12/15 RECENT ED AND DECREASED PENIS SIZE->ARRANGED HORMONE LEVELS, DECLINED RX 06/18 TESTOSTERONE NL (478) / PROLACTIN NL / TSH NL Situational stress 07/04/2009 2 Overview (01/02/2010): 06/17 SON WITH END STAGE MUSCULAR DYSTROPHY 12/15 PRESCRIBED ALPRAZOLAM Left leg pain 04/04/2009 01/02/2010 Overview (07/04/2009): 04/04/09 1 WEEK LEFT POSTERIOR CALF PAIN->ARRANGED VENOUS BLOOD FLOW STUDY->IF NEG->PRESCRIBED HYDROCODONE AND RECOMMENDED ORTHO OPINION IF PERSISTS->SYMPTOMS RESOLVED SPONTANEOUSLY 03/16 LEFT LEG VENOUS BLOOD FLOW STUDY NORMAL. Screening for other and unsp ecified respiratory condition 06/25/2008 01/02/2010 Overview (06/25/2008): 02/11 CXR NL Tobacco abuse, in remission 06/25/2008 01/02/2010 Overview (06/25/2008): QUIT 2004 AFTER 40 PACK YEARS Transient global amnesia 06/25/2008 Overview (06/25/2008): 06/14 ADMIT WITH TRANSIENT AMNESIA->NEURO EVAL, MRI BRAIN, CBFS, REPORTEDLY NEG IN RETROSPECT, PT SUSPECTS CO POISONING DUE TO LEAKING MUFFLER [facility] care 05/27/2008 Overview (05/27/2008): DAILY ASPRIN RECOMMENDED YEARLY FLU VAX RECOMMENDED Obesity 05/27/2008 03/16/2020 Overview (05/27/2008): INSTRUCTED IN LOW FAT DIET/DAILY EXERCISE Screening for other and unsp ecified deficiency anemia 05/26/2008 01/02/2010 Overview (06/23/2008): 06/16 CBC NL Encounters Date Type Department Care Team Description 10/25/2024 External Device Data STL ABSTRACTION Provider, Abstract 10/25/[address] [place] [address] Emeka Ibanez MD Primary osteoarthritis involving multiple joints 09/30/[address] [place] [id number] Emeka Ibanez MD Primary osteoarthritis involving multiple joints 09/07/2024 11:00 AM CDT Video Visit [address] [place] [address] Emeka Ibanez MD Benign hypertension with CKD (chronic kidney disease) stage III (CMS/HCC) (Primary Dx); Uncomplicated opioid dependence (CMS/HCC); S/P AVR; Pure hypercholesterolemia; Primary osteoarthritis involving multiple joints; Moderate episode of recurrent major depressive disorder (CMS/HCC); Anemia, chronic disease; Gastroesophageal reflux disease without esophagitis; Blood test declined; Stage 3b chronic kidney disease (CMS/HCC); Major depressive disorder, recurrent episode, mild; Old myocardial infarction 09/07/2024 Telephone [facility] Internal Medicine [facility] [phone] [facility] [address] [place] [address] Emeka Ibanez MD Question 09/02/2024 [facility] Internal Medicine [facility] [phone] [facility] [address] [place] [address] Emeka Ibanez MD Primary osteoarthritis involving multiple joints 08/24/2024 External Device Data STL ABSTRACTION Provider, Abstract 08/15/2024 External Device Data STL ABSTRACTION Provider, Abstract 08/13/2024 External Device Data STL ABSTRACTION Provider, Abstract 08/12/2024 External Device Data STL ABSTRACTION Provider, Abstract from Last 3 Months Immunizations Immunization Administration Dates Next Due (PNEUMOVAX 23)(50 YRS UP) PN EUMOCOCCAL POLYSACCHARIDE (PPV23) 0.5 ML, IM 03/04/2019,07/03/2010 (PREVNAR 13)(6 WKS UP) PNEUM OCOCCAL CONJUGATE (PCV13) 0.5 ML, IM 02/28/2015 (TDVAX)(7 YRS UP) TETANUS AN D DIPHTHERIA TOXOIDS, ADSORBED (2 LF OF TETANUS TOXOID AND 2 LF OF DIPHTHERIA TOXOID), 0.5ML (PF), IM 04/25/2009 INFLUENZA VACCINE QUADRIVALE NT ADJ 65 YR UP PF IM 03/16/2020 Influenza Seasonal Unspecifi ed Formulation IM 02/13/2017,03/08/2014,04/01/2013,06/18,03/18/2012,03/04/2011,03/08/2009 ,03/08/2008 Influenza Vaccine High Dose 65+ Yrs IM 1 ,03/04/2019,04/24/2018,02/20,03/03/2016,03/08/2015,03/08/2014 Skin Test TB 07/19/2007 Family History Medical History Relation Name Comments Arthritis-osteo Mother Relation Name Status Comments Mother Social History Tobacco Use Types Packs/Day Years Used Date Smoking Tobacco: Former Cigarettes Q uit: 06/08/2002 Passive Smoke Exposure: Past Smokeless Tobacco: Never Tobacco Cessation:Counseling Given: No Alcohol Use Standard Drinks/Week Comments No 0 [...] on file 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 Gender Identity Not on file Sexual Orientation Not on file Occupation Industry Job Start Date Job End Date Not on file Not on file Not on file Not on file Last Filed Vital Signs Vital Sign Reading Time Taken Comments Blood Pressure 135/85 09/07/2024 11:09 AM CDT Home blood pressure goal Pulse 58 01/09/2023 10:59 AM CDT Temperature 36.4 C (97.6 F) 01/09/2023 10:59 AM CDT Respiratory Rate 12 01/09/2023 10:5 9 AM CDT Oxygen Saturation 95% 01/09/2023 10: 59 AM CDT Inhaled Oxygen Concentration - - Weight 73.5 kg (162 lb) 09/07/2024 11:0 9 AM CDT Height 175.3 cm (5' 9) 09/07/2024 11:0 9 AM CDT Body Mass Index 23.92 09/07/2024 11:09 AM CDT Plan of Treatment Health Maintenance Due Date Last Done Comments ZOSTER VACCINE (1 of 2) 1993 DTAP/TDAP/TD VACCINES (1 - Tdap) 04/26/2009 04/25/20 09 RSV VACCINE (60+ or ) (1 - 1-dose 75+ series) 2018 COLORECTAL SCREENING 07/27/2022 07/27/2017, 06/06/2010, 06/05/2010 INFLUENZA VACCINE (#1) 2024 1 (Previously completed), 03/08/2021, 03/16/2020, Additional history exists Medicare Ad[place]age ([place]) Preventative Visit/Annual Wellness Visit 06/08/2024 03/14/2024, 09/29/2022, 2022, Additional history exists PNEUMOCOCCAL VACCINE 50+ YEARS Completed 0 03/04/2019, 02/28/2015, 07/03/2010 Medical Devices Implanted Type Area Divemaster Device Identifier Shelf Expiration Date Model / Serial / Lot Mesh [facility]6 - [id number] Implanted:Qty : 1 on 02/18/2016 by Clara Rdz MD at [facility] Mesh Right: Inguinal [employer]- [employer] [id number] 03/07/2017 [facility] / / [id number] Valve Aortic Magna Ease 21mm [id number] - [id number] Implanted:Qty : 1 on 07/11/2015 by Yannick Alvarez MD at [facility] Valve N/A: Aorta [employer] 03/21/2019 [id number] / [id number] / Sut Endo Tfe [facility]40 - [id number] Implanted:Qty : 4 on 07/11/2015 by Yannick Alvarez MD at [facility] N/A: Heart [employer] 03/07/2020 [facility] / / [id number] [place] [address] Advance Directives For more information, please contact: [phone] * Full Code (Latest Code Status on File) Date Activated Date Inactivated Comments 07/27/2017 1:39 PM 07/27/2017 5:51 PM * Full Code Date Activated Date Inactivated Comments 02/27/2017 11:54 AM 02/27/2017 4:37 PM * Full Code Date Activated Date Inactivated Comments 02/27/2017 7:03 AM 02/27/2017 11:54 AM * Full Code Date Activated Date Inactivated Comments 02/18/2016 8:43 AM 02/18/2016 2:14 PM * Full Code Date Activated Date Inactivated Comments 02/18/2016 5:34 AM 02/18/2016 8:43 AM Care Teams It Security Manager Relationship Specialty Start [place] [id number] [address] PCP - General 10/09/05
--- OUTSIDE RECORDS SUMMARY | 2024-11-06 18:19 | XMS_ITS | Encounter Summary ---
Author Organization [facility] Address [address] [place] [address] Care Team Providers Care Family Court Registrar Name Role Phone Emeka Ibanez MD Primary Care Provider [phone] Encounter Details Date Type Department Care Team (Late st Contact Info) Description 04/08/2006 Orders Only [facility] Internal Medicine [address] [address] [place] [address] [address] Social History Tobacco Use Types Packs/Day Years Used Date Smoking Tobacco: Never Assessed Sex and Gender Information Value Date Recorded Sex Assigned at Not on file Legal Sex Male 5:22 AM ORDER ENTRY Gender Identity Not on file Sexual Orientation Not on file documented as of this encounter Progress Notes * Emeka Ibanez MD - 03/21/2008 10:59 PM CDT WEIGHT: 202lbs BLOOD PRESSURE: 130/80 Right Arm Sitting NURSE NAME: Marycruz StinsonDivya CHIEF COMPLAINT Patient here for ER follow up. HISTORY: resp sx s better Currently has irritability due to situational stress due to disabled son dying xanax caused hangover didnt take lexapro because he didnt understand reason ASSESSMENT/PLAN: 272.4-HYPERLIPIDEMIA ASSESSMENT: 300.02-ANXIETY DISORDER ASSESSMENT: The patient's anxiety has not changed. rec he try lexapro and provided educ MEDICATIONS: ALPRAZOLAM ORAL TABLET 0.25 MG, 1 Two Times A Day, As Needed, 50 Dispensed, 2 Fills, status: DISCONTINUED, 04/08/2006. DIAZEPAM ORAL TABLET 5 MG, 1/2-1 Two Times A Day, As Needed, 50 Dispensed, status: NEW PRESCRIPTION, 04/08/2006, Comment: for anxiety. LEXAPRO ORAL TABLET 10 MG, 1 Every Day, 30 Dispensed, status: NEW PRESCRIPTION, 04/08/2006. PATIENT EDUCATION: Education sheet given to the patient. 414.00-CORONARY ARTERY DISEASE ASSESSMENT: sees cardio 490-BRONCHITIS, UNSPECIFIED ASSESSMENT: sx s improving TIME PHYSICIAN WITH PATIENT: TOTAL: 25 minutes. TIME PATIENT COUNSELED/CARE COORDINATED: 15 minutes. REGARDING: Treatment options. PREVENTIVE COUNSELING The patient was counseled. RETURN VISIT : Patient instructed to return in 1 month. Instructed to call if not improving. needs prostate ca screening Electronically Signed by: Emeka Ibanez MD on Saturday, April 08, 2006 documented in this encounter Plan of Treatment Not on file documented as of this encounter Visit Diagnoses Not on filedocumented in this encounter Care Teams Family Court Registrar Relationship Specialty Start [place] [address] [address] PCP - General 10/09/05 documented as of this encounter
--- OUTSIDE RECORDS SUMMARY | 2024-11-06 18:19 | XMS_ITS | Encounter Summary ---
Author Organization [employer] Address [address] [place] [address] Care Team Providers Care Gas Welding Machine Operator Name Role Phone Emeka Ibanez MD Primary Care Provider [phone] Encounter Details Date Type Department Care Team (Late st Contact Info) Description 08/14/2005 Outpatient Historical [facility] [place] [address] 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
--- OUTSIDE RECORDS SUMMARY | 2024-11-06 18:19 | XMS_ITS | Encounter Summary ---
Author Organization [facility] Address 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
--- OUTSIDE RECORDS SUMMARY | 2024-11-06 18:19 | XMS_ITS | Encounter Summary ---
Author Organization [employer] Address [address] [place] [address] Care Team Providers Care Swing Driver Name Role Phone Emeka Ibanez MD Primary Care Provider [phone] Encounter Details Date Type Department Care Team (Late st Contact Info) Description 09/11/2005 Outpatient [facility] 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 [address] [place] [address] PCP - General 10/09/05 documented as of this encounter
--- OUTSIDE RECORDS SUMMARY | 2024-11-06 18:19 | XMS_ITS | Encounter Summary ---
Author Organization [facility] Address [address] [place] [address] Care Team Providers Care Radio Adjuster Name Role Phone Emeka Ibanez MD Primary Care Provider [phone] Encounter Details Date Type Department Care Team (Latest Contact Info) Description 08/13/2005 Inpatient Historical HIS PATIENT IN A BED Nabil Harding MD [address] [place] [address] Coronary Atherosclerosis of [place] Coronary Artery (Primary Dx) Social History Tobacco Use Types Packs/Day Years Used Date Smoking Tobacco: Never Assessed Sex and Gender Information Value Date Recorded Sex Assigned at Not on file 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 Gender Identity Not on file Sexual Orientation Not on file documented as of this encounter Plan of Treatment Not on file documented as of this encounter Procedures Procedure Name Priority Date/Time Associated Diagnosis Comments TROPONIN (W/REFLEX CKMB/CK) Routine 08/14/2005 6:10 PM TIER LIFT OPERATOR PTT Routine 08/14/2005 6:10 PM TIER LIFT OPERATOR PTT Routine 08/14/2005 4:25 PM TIER LIFT OPERATOR POC ACTIVATED CLOTTING TIME Routine 08/14/2005 2:19 PM TIER LIFT OPERATOR POC ACTIVATED CLOTTING TIME Routine 08/14/2005 1:51 PM TIER LIFT OPERATOR PTT Routine 08/14/2005 11:20 AM TIER LIFT OPERATOR POC ACTIVATED CLOTTING TIME Routine 08/14/2005 8:57 AM TIER LIFT OPERATOR LIPID PANEL Routine 08/14/2005 4:32 AM TIER LIFT OPERATOR PTT Routine 08/14/2005 1:20 AM TIER LIFT OPERATOR CBC WITH DIFFERENTIAL Routine 08/13/2005 5:25 PM TIER LIFT OPERATOR CBC WITH DIFFERENTIAL Routine 08/13/2005 5:25 PM TIER LIFT OPERATOR PTT Routine 08/13/2005 5:25 PM TIER LIFT OPERATOR PROTIME-INR Routine 08/13/2005 5:25 PM TIER LIFT OPERATOR COMPREHENSIVE METABOLIC PANEL Routine 08/13/2005 5:25 PM TIER LIFT OPERATOR documented in this encounter Results * PTT (08/14/2005 6:10 PM TIER LIFT OPERATOR) PTT 32.1 24.4 - 36.4 Seconds INTERFACE SYSTEM Comment: PTT Therapeutic Range: Heparin Level PTT (seconds) <0.10 units/mL <53 0.10 - 0.30 units/mL 53 - 67 0.30 - 0.70 units/mL* 67 - 95* 0.70 - 1.00 units/mL 95 - 116 *corresponds to therapeutic range for unfractionated heparin 08/14/2005 6:10 PM TIER LIFT OPERATOR us Nabil Shukla MD HEMATOLOGY ORDERABLES Final Resu lt Performing Organization Address City/[facility] Co de Phone Number INTERFACE SYSTEM Refer to clinic/hospital department * TROPONIN (W/REFLEX CKMB/CK) (08/14/2005 6:10 PM TIER LIFT OPERATOR) TROPONIN T <0.01 <=0.03 ng/mL INTERFACE SYSTEM TROPONIN T INTERP Negative INTERFACE SYSTEM 08/14/2005 6:10 PM TIER LIFT OPERATOR us Nabil Shukla MD CHEMISTRY ORDERABLES Final Resul t INTERFACE SYSTEM Refer to clinic/hospital department * (ABNORMAL) PTT (08/14/2005 4:25 PM TIER LIFT OPERATOR) PTT 66.0(H) 24.4 - 36.4 Seconds INTERFACE SYSTEM Comment: PTT Therapeutic Range: Heparin Level PTT (seconds) <0.10 units/mL <53 0.10 - 0.30 units/mL 53 - 67 0.30 - 0.70 units/mL* 67 - 95* 0.70 - 1.00 units/mL 95 - 116 *corresponds to therapeutic range for unfractionated heparin 08/14/2005 4:25 PM TIER LIFT OPERATOR Result Ash Harding MD HEMATOLOGY ORDERABLES Final [facility] Performing Organization Address [facility] Phone Number INTERFACE SYSTEM Refer to clinic/hospital department * POC ACTIVATED CLOTTING TIME (08/14/2005 2:19 PM TIER LIFT OPERATOR) ACT POC 307 Seconds INTERFACE SYSTEM Comment: Normal Donors range 113-149 Non-heparin patients 89-169 ACT value for sheath pull at [facility] has been established to be < or = to 1 70. (See also Nursing Procedures for sheath pull in related nursing areas) 08/14/2005 2:19 PM TIER LIFT OPERATOR Result Ash Harding MD POINT OF CARE TESTING [facility] Performing Organization Address [facility] Phone Number INTERFACE SYSTEM Refer to clinic/hospital department * POC ACTIVATED CLOTTING TIME (08/14/2005 1:51 PM TIER LIFT OPERATOR) ACT POC 177 Seconds INTERFACE SYSTEM Comment: Normal Donors range 113-149 Non-heparin patients 89-169 ACT value for sheath pull at [facility] has been established to be < or = to 1 70. (See also Nursing Procedures for sheath pull in related nursing areas) 08/14/2005 1:51 PM TIER LIFT OPERATOR Result Ash Harding MD POINT OF CARE TESTING Final [facility] Performing Organization Address [facility] de Phone Number INTERFACE SYSTEM Refer to clinic/hospital department * (ABNORMAL) PTT (08/14/2005 11:20 AM TIER LIFT OPERATOR) PTT 38.7(H) 24.4 - 36.4 Seconds INTERFACE SYSTEM Comment: PTT Therapeutic Range: Heparin Level PTT (seconds) <0.10 units/mL <53 0.10 - 0.30 units/mL 53 - 67 0.30 - 0.70 units/mL* 67 - 95* 0.70 - 1.00 units/mL 95 - 116 *corresponds to therapeutic range for unfractionated heparin 08/14/2005 11:2 0 AM TIER LIFT OPERATOR us Nabil Harding MD HEMATOLOGY ORDERABLES Final Resu Performing Organization Address [facility] Phone Number INTERFACE SYSTEM Refer to clinic/hospital department * POC ACTIVATED CLOTTING TIME (08/14/2005 8:57 AM TIER LIFT OPERATOR) [facility] ACT POC 307 Seconds INTERFACE SYSTEM Comment: Normal Donors range 113-149 Non-heparin patients 89-169 ACT value for sheath pull at [facility] has been established to be < or = to 1 70. (See also Nursing Procedures for sheath pull in related nursing areas) 08/14/2005 8:57 AM TIER LIFT OPERATOR us Nabil Harding MD POINT OF CARE TESTING Final [facility] Performing Organization Address [facility] Phone Number INTERFACE SYSTEM Refer to clinic/hospital department * (ABNORMAL) LIPID PANEL (08/14/2005 4:32 AM TIER LIFT OPERATOR) Pathologist [facility] LIPID PANEL COMMENT See below INTERFACE SYSTEM Comment: Adult ATP III Classifications: Cholesterol (mg/dL) Triglyceride (mg/dL) Desirable <200 Normal <150 Borderline 200 - 239 Borderline High 150 - 199 High >=240 High 200 - 499 Very High >=500 HDL Cholesterol (mg/dL) LDL (mg/dL) Low (increased risk) <40 Optimal <100 High (reduced risk) >=60 Near or above optimal 100 - 129 Borderline 130 - 159 High 160 - 189 Very High >=190 LDL calculation is not accurate if Triglycerides are greater than 400 mg /dL Pediatric NCEP Classifications: Cholesterol(<20 years),(mg/dL) Triglyceride Desirable <170 Pediatric classification Borderline 170 - 199 not defined. High >=200 HDL (<5 years) LDL (mg/dL) No Reference Range Established Desirable <110 Borderline 110 - 129 High >=130 CHOLESTEROL 181 100 - 199 mg/dL INTERFACE SYSTEM TRIGLYCERIDE 126 10 - 149 mg/dL INTERFACE SYSTEM HDL 29(L) 40 - 59 mg/dL INTERFACE SYSTEM LDL CALCULATED 127(H) <=99 mg/dL INTERFACE SYSTEM CHOL/HDL RATIO 6.2(H) 2.0 - 5.0 INTER FACE SYSTEM Comment:See interpretive [place] a section for risk classifications. 08/14/2005 4:32 AM TIER LIFT OPERATOR Nabil Harding MD CHEMISTRY ORDERABLES Final Resul t Performing Organization Address [facility] Phone Number INTERFACE SYSTEM Refer to clinic/hospital department * (ABNORMAL) PTT (08/14/2005 1:20 AM TIER LIFT OPERATOR) PTT 45.6(H) 24.4 - 36.4 Seconds INTERFACE SYSTEM Comment: PTT Therapeutic Range: Heparin Level PTT (seconds) <0.10 units/mL <53 0.10 - 0.30 units/mL 53 - 67 0.30 - 0.70 units/mL* 67 - 95* 0.70 - 1.00 units/mL 95 - 116 *corresponds to therapeutic range for unfractionated heparin 08/14/2005 1:20 AM TIER LIFT OPERATOR Nabil Harding MD HEMATOLOGY ORDERABLES Final Resu lt Performing Organization Address [facility] Phone Number INTERFACE SYSTEM Refer to clinic/hospital department * CBC WITH DIFFERENTIAL (08/13/2005 5:25 PM TIER LIFT OPERATOR) NEUTROPHILS 68 45 - 70 % INTERFAC E SYSTEM LYMPHOCYTES 23 16 - 45 % INTERFAC E SYSTEM MONOCYTES 7 3 - 13 % INTERFACE SYSTEM EOSINOPHILS 1 0 - 7 % INTERFAC E SYSTEM BASOPHILS 1 0 - 2 % INTERFACE SYSTEM NEUTROPHIL ABSOLUTE 3.52 1.90 - 7.00 K/uL INTERFACE SYSTEM LYMPHOCYTE ABSOLUTE 1.19 0.70 - 4.50 K/uL INTERFACE SYSTEM MONOCYTE ABSOLUTE 0.36 0.10 - 1.30 K/uL INTERFACE SYSTEM EOSINOPHIL ABSOLUTE 0.06 0.00 - 0.70 K/uL INTERFACE SYSTEM BASOPHILS ABSOLUTE 0.03 0.00 - 0.20 K/uL INTERFACE SYSTEM 08/13/2005 5:25 PM TIER LIFT OPERATOR Nabil Harding MD HEMATOLOGY ORDERABLES Final [facility] Performing Organization Address [facility] de Phone Number INTERFACE SYSTEM Refer to clinic/hospital department * CBC WITH DIFFERENTIAL (08/13/2005 5:25 PM TIER LIFT OPERATOR) WBC 5.2 4.0 - 9.8 K/uL INTERFACE SYSTEM RBC 4.80 4.50 - 5.40 M/uL INTERFACE SYSTEM HEMOGLOBIN 14.4 13.6 - 16.5 g/dL INTERFACE SYSTEM HEMATOCRIT 42.2 40.0 - 48.0 % INTERFACE SYSTEM MCV 87.9 82.0 - 99.0 fL INTERFACE SYSTEM MCH 30.0 27.2 - 32.6 pg INTERFACE SYSTEM MCHC 34.1 31.5 - 35.5 % INTERFACE SYSTEM RDW 12.9 11.5 - 14.5 % INTERFACE SYSTEM RDW-STDEV 41.6 37.1 - 48.7 fL INTERFACE SYSTEM PLATELETS 204 140 - 350 K/uL INTERFACE SYSTEM MPV 11.5 9.3 - 12.4 fL INTERFACE SYSTEM 08/13/2005 5:25 PM TIER LIFT OPERATOR Nabil Harding MD HEMATOLOGY ORDERABLES Final [facility] Performing Organization Address [facility] Phone Number INTERFACE SYSTEM Refer to clinic/hospital department * (ABNORMAL) COMPREHENSIVE METABOLIC PANEL (08/13/2005 5:25 PM TIER LIFT OPERATOR) GLUCOSE 150(H) 65 - 109 mg/dL INTERFACE SYSTEM CREATININE 1.1 0.5 - 1.3 mg/dL INTERFACE SYSTEM CALCIUM 8.9 8.6 - 10.2 mg/dL INTERFACE SYSTEM AST 24 12 - 38 U/L INTERFACE SYSTEM ALKALINE PHOSPHATASE 69 40 - 129 U/L INTERFACE SYSTEM BILIRUBIN TOTAL 0.4 0.2 - 1.0 mg/dL INTERFACE SYSTEM ALBUMIN 4.4 3.4 - 4.8 g/dL INTERFACE SYSTEM TOTAL PROTEIN 6.9 6.3 - 8.6 g/dL INTERFACE SYSTEM ALT 22 0 - 41 U/L INTERFACE SYSTEM BUN 15 6 - 20 mg/dL INTERFACE SYSTEM SODIUM 142 135 - 145 mmol/L INTERFACE SYSTEM POTASSIUM 3.8 3.5 - 4.9 mmol/L INTERFACE SYSTEM CHLORIDE 104 96 - 108 mmol/L INTERFACE SYSTEM CO2 28 22 - 30 mmol/L INTERFACE SYSTEM 08/13/2005 5:25 PM TIER LIFT OPERATOR Nabil Harding MD CHEMISTRY ORDERABLES Final Resul t Performing Organization Address City/[facility] de Phone Number INTERFACE SYSTEM Refer to clinic/hospital department * PTT (08/13/2005 5:25 PM TIER LIFT OPERATOR) PTT 27.3 24.4 - 36.4 Seconds INTERFACE SYSTEM Comment: PTT Therapeutic Range: Heparin Level PTT (seconds) <0.10 units/mL <53 0.10 - 0.30 units/mL 53 - 67 0.30 - 0.70 units/mL* 67 - 95* 0.70 - 1.00 units/mL 95 - 116 *corresponds to therapeutic range for unfractionated heparin 08/13/2005 5:25 PM TIER LIFT OPERATOR Nabil Harding MD HEMATOLOGY ORDERABLES Final Resu lt Performing Organization Address [facility] Phone Number INTERFACE SYSTEM Refer to clinic/hospital department * PROTIME-INR (08/13/2005 5:25 PM TIER LIFT OPERATOR) PROTIME 13.9 12.7 - 15.1 Seconds INTERFACE SYSTEM INR 1.0 0.9 - 1.1 INTERFACE SYSTEM Comment: INR Therapeutic Range: Adult: 2.0 - 3.0 for pulmonary embolism or prophylaxis against venous thrombosis or systemic embolization. 2.0 - 3.0 for patients with tissue heart valves. 2.5 - 3.5 for patients with mechanical heart valves or post MA. Pediatric (12 years and under): 1.5 - 3.0 Although the target range in children is not well established , INR values of 1.5 - 3.0 are recommended for most patients. Higher values have been used in children with prosthetic cardiac valves and hereditary clotting disorders. (<3 days) therapeutic ranges have not been established. 08/13/2005 5:25 PM TIER LIFT OPERATOR us Nabil Harding MD HEMATOLOGY ORDERABLES Final Resu lt INTERFACE SYSTEM Refer to clinic/hospital department documented in this encounter Visit Diagnoses Diagnosis Coronary atherosclerosis of [place] coronary artery- Primary documented in this encounter Care Teams Radio Adjuster Relationship Specialty Start [place] [id number] [address] PCP - General 10/09/05 documented as of this encounter
--- OUTSIDE RECORDS SUMMARY | 2024-11-06 18:19 | XMS_ITS | Encounter Summary ---
Author Organization [facility] Address 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
--- OUTSIDE RECORDS SUMMARY | 2024-11-06 18:19 | XMS_ITS | Encounter Summary ---
Author Organization [employer] Address [address] [place] [address] Care Team Providers Care Plastic Molder Name Role Phone Emeka Ibanez MD Primary Care Provider [phone] Encounter Details Date Type Department Care Team (Late st Contact Info) Description 08/14/2005 Outpatient Historical [facility] Support [facility]. ([facility]) [address] 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
--- OUTSIDE RECORDS SUMMARY | 2024-11-06 18:19 | XMS_ITS | Encounter Summary ---
Author Organization [facility] Address [address] [place] [address] Care Team Providers Care Olericulture Teacher Name Role Phone Emeka Ibanez MD Primary Care Provider [phone] Encounter Details Date Type Department Care Team (Late st Contact Info) Description 07/06/2006 Outpatient Historical [facility] [place] 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
--- OUTSIDE RECORDS SUMMARY | 2024-11-06 18:19 | XMS_ITS | Encounter Summary ---
Author Organization [facility] Address [address] [place] [address] Care Team Providers Care Global Professional Name Role Phone Emeka Ibanez MD Primary Care Provider [phone] Encounter Details Date Type Department Care Team (Late st Contact Info) Description 08/13/2005 Outpatient Historical [facility] 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
--- OUTSIDE RECORDS SUMMARY | 2024-11-06 18:19 | XMS_ITS | Encounter Summary ---
Author Organization [facility] Address 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 Gender Identity Not on file Sexual Orientation Not on file documented as of this encounter Last Filed Vital Signs Vital Sign Reading Time Taken Comments Blood Pressure 134/84 03/25/2006 5:45 PM CDT Pulse - - Temperature 36.9 C (98.4 F) 03/25/2006 5:45 PM CDT Respiratory Rate - - Oxygen Saturation - - Inhaled Oxygen Concentration - - Weight 92.5 kg (204 lb) 03/25/2006 5:45 PM CDT Height - - Body Mass Index - - documented in this encounter Plan of Treatment Not on file documented as of this encounter Visit Diagnoses Not on filedocumented in this encounter Care Teams Air Conditioning Sheet Metal Installer Relationship Specialty Start Date End Date Emeka Ibanez [place] [id number] [place] [id number] PCP - General 10/09/05 documented as of this encounter
--- OUTSIDE RECORDS SUMMARY | 2024-11-06 18:19 | XMS_ITS | Encounter Summary ---
Author Organization [facility] Address 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
--- OUTSIDE RECORDS SUMMARY | 2024-11-06 18:19 | XMS_ITS | Encounter Summary ---
Author Organization [facility] Address 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 [address] D.O.B: 1945 SSN: [id number] Parent/Guardian if applicable: Patient Insurance: [employer] Policy#: [id number] Group #: Best To Call : HOME. Best Time to Call : ANYTIME. May We Leave Message At That Number : Reason for referral: colonoscopy PATIENT DIAGNOSIS: . V76.51-SCREEN FOR CA OF COLON ORDERING PHYSICIAN : JESSICA CRAIN MD PRIORITY OF REFERRAL: AT PATIENT'S CONVENIENCE. OFFICE CENTRAL OFFICE SUPERVISOR & PHONE: Cecile Barraza C FOR SCHEDULING USE ONLY FIRST ATTEMPT Date:JUN 09, 2007 Kayla Davila D 03:18 p Left Message with Family. SECOND ATTEMPT: Date:JUN 10, 2007 Michaela Barrett A 03:46 p Left Message with Family Member. (with female) LETTER SENT: Date JUN 14, 2007 Jane Barney A 10:34 a Letter Sent to Patient. ADDITIONAL OFFICE COMMENTS: Date JUN 15, 2007 Cecile Barraza C 09:48 a called patient and line was busy No response please advise next step --WILL TAISHA--Jessica Nichole MD - 10/21/2007 1:32 PM CDT WEIGHT: 208lbs BLOOD PRESSURE: 130/70 Right Arm Sitting NURSE NAME: Marycruz Stinson R TOBACCO USE Patient does not currently use tobacco. CHIEF COMPLAINT Patient here for follow up Coronary Artery Disease (CAD), hypertension. HISTORY: FUP RE BELOW [facility]/POS R/U RECENT LABS REVIEWED W/ PT C/O BLOCKED RIGHT EAR--OCCURRED SUDDENLY--NO ASSOC SXs--HAS HX OF HEARING LOSS ON R HISTORY: 272.4-HYPERLIPIDEMIA The patient's most recent LDL is at goal, most recent HDL is not at goal, mostrecent triglyceride is near goal. 300.02-ANXIETY DISORDER The condition has improved. No complications noted from the medication presently being used. 401.1-HYPERTENSION ESSENTIAL BENIGN The blood pressure readings taken outside the office since the last visit are as follows: the systolic range has been 130's. 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 959.3-INJURY TO ELBOW/FOREARM/WRIST RESOLVED V76.51-SCREEN FOR CA OF COLON DUE CURRENT MEDICATION LIST: ASPIRIN LOW STRENGTH ORAL TABLET CHEWABLE 81 MG, 1 Every Day PLAVIX ORAL TABLET 75 MG, 1 Every Day TOPROL XL ORAL TABLET 24 HR 25 MG, 1 Every Day LIPITOR ORAL TABLET 20 MG, 1 Every Day LISINOPRIL ORAL TABLET 40 MG, 1 Every Day LEXAPRO ORAL TABLET 10 MG, 1 Every Day HYDROCHLOROTHIAZIDE ORAL TABLET 25 MG, 1/2 Every Morning HYDROCODONE-ACETAMINOPHEN ORAL TABLET 5-325 MG, 1 Three Times A Day, As Needed FOR PAIN CURRENT ALLERGY LIST: DEMEROL PHYSICAL EXAMINATION: CONSTITUTIONAL: GENERAL APPEARANCE: Healthy appearing patient in no distress. EYES: CONJUNCTIVAE/LIDS: Conjunctivae and lids appear normal. EARS, NOSE, MOUTH AND THROAT: EARS: Tympanic membranes shiny without retraction. Canals unremarkable. Hearing grossly normal. ORAL: NECK/THYROID: Trachea midline. No thyroid enlargement, tenderness, or mass. No supraclavicular or cervical adenopathy. RESPIRATORY: Clear to auscultation and percussion. Normal respiratory effort. CARDIOVASCULAR: CARDIAC: Regular rhythm. No murmurs, rubs, or gallops. ARTERIAL: No aortic bruits. EDEMA/VARICOSITIES OF EXTREMITIES: No edema or varicosities. GASTROINTESTINAL: ABDOMEN: Soft, non-tender, without masses. Bowel sounds active. LIVER/SPLEEN/KIDNEY: No hepatosplenomegaly, tenderness or nodularity. Kidneys not palpable. GENITOURINARY: PROSTATE: Symmetrical and smooth with no nodularity or tenderness. MUSCULOSKELETAL EXAM: EXTREMITIES: PE/MS/BILAT UPPER EXT No misalignment or tenderness. Full range of motion. Normal stability, strength and tone. BILATERAL LOWER EXTREMITIES: No misalignment or tenderness. Full range of motion. Normal stability,strength and tone. SKIN: SKIN: Warm, dry, no diaphoresis, no significant lesions, irritation, rashes or ulcers. No induration, obvious subcutaneous nodules or tightening. NEUROLOGIC: NONFOCAL PSYCHIATRIC: Judgment appropriate. Oriented. Normal memory. Mood and affect appropriate. ASSESSMENT/PLAN: 272.4-HYPERLIPIDEMIA ASSESSMENT: Will not change medication, continue to monitor for complications. Weight loss was encouraged. Regular exercise was encouraged. A low cholesterol diet was encouraged. 300.02-ANXIETY DISORDER ASSESSMENT: The patient's anxiety remains stable. Will not change medication, continue to monitor for complications. 401.1-HYPERTENSION ESSENTIAL BENIGN ASSESSMENT: The blood pressure remains satisfactory. Will not change medication, continue to monitor for complications. 412-OLD MYOCARDIAL INFARCTION CLINICAL GUIDELINES: Post myocardial clinical guidelines reviewed. 414.00-CORONARY ARTERY DISEASE ASSESSMENT: V76.44-SCREEN FOR CA OF PROSTATE ASSESSMENT: CLEO NL / WILL ARRANGE PSA LAB ORDERS: today Order number: [id number] Test Ordered: PSA, TOTAL 1002 V76.51-SCREEN FOR CA OF COLON ASSESSMENT: WILL ARRANGE LAB ORDERS: Order number: [id number] Test Ordered: COLONOSCOPY 381.00-OTITIS MEDIA ACUTE NONSUPPURATIVE ASSESSMENT: WILL TX BELOW AND REFER TO ENT MEDICATIONS: CIPRO ORAL TABLET 500 MG, 1 Two Times A Day, 20 Dispensed, status: NEW PRESCRIPTION, 06/04/2007. MEDROL (ODILON) ORAL TABLET 4 MG, use as dir, 1 Dispensed, status: NEW PRESCRIPTION, 06/04/2007. ENTEX LA ORAL CAPSULE 12 HR 30-400 MG, 1 Two Times A Day, As Needed for congestion, 30 Dispensed, 1Fills, status: NEW PRESCRIPTION, 06/04/2007. SPECIALTY REFERRAL: ENT (OTOLARYNGOLOGY) Dr. Ezequiel Jeffery --- EARS only ph: [phone] fax: [phone]. PREVENTIVE COUNSELING The patient was counseled. RETURN VISIT : Patient instructed to return in 3 months, to 4 months. Electronically Signed by: Jessica Crain MD on Monday, June 04, 2007 documented in this encounter Plan of Treatment Not on file documented as of this encounter Visit Diagnoses Not on filedocumented in this encounter Care Teams Top Collar Baster Relationship Specialty [place] [address] [address] PCP - General 10/09/05 documented as of this encounter
--- OUTSIDE RECORDS SUMMARY | 2024-11-06 18:19 | XMS_ITS | Encounter Summary ---
Author Organization [facility] Address [address] [place] [address] Care Team Providers Care Veterinary Manager Name Role Phone Jessica Crain MD Primary Care Provider [phone] Encounter Details Date Type Department Care Team (Late st Contact Info) Description 03/08/2008 Outpatient Historical [facility] [address] [place] [address] [address] [place] [address] Temo Shukla MD NO ADDRESS ON FILE Other Chest Pain Social History Tobacco Use Types Packs/Day Years Used Date Smoking Tobacco: Never Assessed Sex and Gender Information Value Date Recorded Sex Assigned at Not on file 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 Gender Identity Not on file Sexual Orientation Not on file documented as of this encounter Plan of Treatment Not on file documented as of this encounter Procedures Procedure Name Priority Date/Time Associated Diagnosis Comments NM MYOCARDIAL PERFUSION EF Timed Study 03/08/2008 10:30 AM CDT documented in this encounter Results * NM MYOCARDIAL PERFUSION EF (03/08/2008 10:30 AM CDT) 03/08/2008 10:3 0 AM CDT Narrative INTERFACE SYSTEM - 03/08/2008 3:25 PM CDT [facility] [address], [place] [address] Admit Date: 03/08/2008 KAYLEE CUEVA Sex: M Admit Prov: TEMO SHUKLA Date: 1945 Primary Care Prov: JESSICA CRAIN CMRN: [id number] Room: [facility] SSN: [id number] IMAGING SERVICES Ordering Prov: N/A Accession Number: [id number] Interpretation Date of Procedure: 03/08/2008 Procedure Type: 1 Day Regadenoson Stress Myocardial Perfusion Study Clinical Indications: 62-year-old gentleman with a history of severe ischemic heart disease, family history of heart disease, hyperlipidemia, and hypertension who is referred for ischemic evaluation. Medications: Toprol and Lipitor Pharmacologic Stress Procedure: The patient performed a chemical stress test with low level exercise using 0.4 mg IV regadenoson. The blood pressure was 160 / 90 at baseline and 154 / 80 following regadenoson injection, demonstrating a normal response to regadenoson. The patient developed no symptoms during the procedure. ECG: Resting ECG demonstrated normal sinus rhythm with nonspecific ST segment and T wave abnormalities. With drug infusion there were no diagnostic ST segment changes. There were no arrhythmias. Nuclear Imaging Protocol: Myocardial perfusion imaging was performed at rest approximately 60 minutes following the intravenous injection of 10.1 mCi TC99m tetrofosmin. Following the regadenoson injection, the patient was injected intravenously with 43.8 mCi TC99m tetrofosmin. Gated post-stress tomographic imaging was performed approximately 60 minutes later. SPECT reconstruction was performed in the short, vertical long and horizontal axis views in both rest and stress image sets. Findings: Rotating planar images do not demonstrate significant motion artifact. There is normal perfusion to all myocardial segments during both stress and rest imaging. There is no ischemia. Gated SPECT examination reveals mild left ventricular enlargement. There is mild inferobasal hypokinesis with overall normal left ventricular wall motion. LVEF 55 %. Impression: 1. Normal myocardial perfusion study. No ischemia. 2. Mildly abnormal gated SPECT examination, with mild left ventricular enlargement and mild infero- basilar hypokinesis. Overall left ventricular systolic function is normal. LVEF 55 %. 3. No ischemic ST segment changes developed during regadenoson stress test. 4. The technical quality of the study is good. 5. No prior study available for comparison. Recommendations: Clinical correlation . Dictated by: TEMO POOL 03/08/2008 15:11 Electronically signed by: TEMO POOL 03/08/2008 15:24 Procedure Note Temo Pool MD - 03/08/2008 [facility] [address] [place], [place] [address] Admit Date: 03/08/2008 KAYLEE CUEVA Sex: M Admit Prov: TEMO SHUKLA Date:1945 Primary Care Prov: JESSICA CRAIN CMRN: [id number] Room: [facility] SSN: [id number] IMAGING SERVICES Ordering Prov: N/A Interpretation Date of Procedure: 03/08/2008 Procedure Type: 1 Day Regadenoson Stress Myocardial Perfusion Study Clinical Indications: 62-year-old gentleman with a history ofsevere ischemic heart disease, family history of heart disease,hyperlipidemia, and hypertension who is referred for ischemic evaluation. Medications: Toprol and Lipitor Pharmacologic Stress Procedure: The patient performed a chemical stress test with low level exerciseusing 0.4 mg IV regadenoson. The blood pressure was 160 / 90 at baselineand 154 / 80 following regadenoson injection, demonstrating a normal responseto regadenoson. The patient developed no symptoms during theprocedure. ECG: Resting ECG demonstrated normal sinus rhythm with nonspecific STsegment and T wave abnormalities. With drug infusion there were no diagnosticST segment changes. There were no arrhythmias. Nuclear Imaging Protocol: Myocardial perfusion imaging was performed at rest approximately 60minutes following the intravenous injection of 10.1 mCi TC99m tetrofosmin. Following the regadenoson injection, the patient was injectedintravenously with 43.8 mCi TC99m tetrofosmin. Gated post-stress tomographicimaging was performed approximately 60 minutes later. SPECT reconstruction was performed in the short, vertical long and horizontal axis views inboth rest and stress image sets. Findings: Rotating planar images do not demonstrate significant motionartifact. There is normal perfusion to all myocardial segments during bothstress and rest imaging. There is no ischemia. Gated SPECT examination revealsmild left ventricular enlargement. There is mild inferobasal hypokinesiswith overall normal left ventricular wall motion. LVEF 55 %. Impression: 1. Normal myocardial perfusion study. No ischemia. 2. Mildly abnormal gated SPECT examination, with mild leftventricular enlargement and mild infero- basilar hypokinesis. Overall leftventricular systolic function is normal. LVEF 55 %. 3. No ischemic ST segment changes developed during regadenoson stresstest. 4. The technical quality of the study is good. 5. No prior study available for comparison. Recommendations: Clinical correlation . Dictated by: TEMO POOL 03/08/2008 15:11 Electronically signed by: TEMO POOL 03/08/2008 15:24 us Temo Shukla MD MT ORDERABLES Final Result INTERFACE SYSTEM Refer to clinic/hospital department documented in this encounter Visit Diagnoses Diagnosis Other chest pain documented in this encounter Care Teams Veterinary Manager Relationship Specialty [place] [address] [address] PCP - General 10/09/05 documented as of this encounter
--- OUTSIDE RECORDS SUMMARY | 2024-11-06 18:19 | XMS_ITS | Encounter Summary ---
Author Organization [employer] Address [address] [place] [address] Care Team Providers Care Meal Temperer Name Role Phone Emeka Ibanez MD Primary Care Provider [phone] Encounter Details Date Type Department Care Team (Late st Contact Info) Description 09/03/2005 Outpatient Historical [facility] Support Serv. ([facility]iology[facility]) [address] 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
--- OUTSIDE RECORDS SUMMARY | 2024-11-06 18:19 | XMS_ITS | Encounter Summary ---
Author Organization [employer] Address [address] [place] [address] Care Team Providers Care Passport Support Associate Name Role Phone Emeka Ibanez MD Primary Care Provider Encounter Details Date Type Department Care Team (Late st Contact Info) Description 08/14/2005 Outpatient Historical [facility] [place] [address] [place] [address] [address] 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
--- OUTSIDE RECORDS SUMMARY | 2024-11-06 18:19 | XMS_ITS | Encounter Summary ---
Author Organization [facility] Address 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 Topic: Patient or Caregiver Communication Request >> Mar 14, 2024 3:13 PM Jatin Calixto wrote: Patient or Caregiver insisting that a message be sent to Care Team Caller: Kermit Noe Patient/Caregiver Callback Number: [phone] (mobile) Call Notes: Patient vv keeps disconnecting documented in this encounter Plan of Treatment Not on file documented as of this encounter Visit Diagnoses Not on filedocumented in this encounter Care Teams Harnessmaker Apprentice Relationship Specialty [place] [address] [place] [address] PCP - General 10/09/05 documented as of this encounter
--- OUTSIDE RECORDS SUMMARY | 2024-11-06 18:19 | XMS_ITS | Encounter Summary ---
Author Organization [employer] Address [address] [place] [address] Care Team Providers Care Skimmer Name Role Phone Emeka Ibanez MD Primary Care Provider [phone] Encounter Details Date Type Department Care Team (Late st Contact Info) Description 09/04/2005 Outpatient Historical [facility] Support Serv. ([facility]) [address] 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
--- OUTSIDE RECORDS SUMMARY | 2024-11-06 18:19 | XMS_ITS | Encounter Summary ---
Author Organization [facility] Address 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 JESSICA CRAIN MD [address] [place] [address] June 09, 2007 KAYLEE CUEVA [address] [place] [address] Dear Kaylee: Please find enclosed your recent test results along with an explanation. Your recent prostate cancer screening blood test (PSA) is normal. Will continue to monitor yearly. Sincerely yours, JESSICA CRAIN MD documented in this encounter Plan of Treatment Not on file documented as of this encounter Visit Diagnoses Not on filedocumented in this encounter Care Teams Rx Specialist Relationship Specialty [place] [address] [place] [address] PCP - General 10/09/05 documented as of this encounter
--- OUTSIDE RECORDS SUMMARY | 2024-11-06 18:19 | XMS_ITS | Encounter Summary ---
Author Organization [employer] Address 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 [address] [place], [place] [id number] PCP - General 10/09/05 documented as of this encounter
--- OUTSIDE RECORDS SUMMARY | 2024-11-06 18:19 | XMS_ITS | Encounter Summary ---
Author Organization [employer] Address [address] [place] [address] Care Team Providers Care Bath Mix Operator Name Role Phone Emeka Ibanez MD Primary Care Provider [phone] Encounter Details Date Type Department Care Team (Late st Contact Info) Description 10/09/2005 Outpatient Historical [facility] [place] [address] [address] 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
--- OUTSIDE RECORDS SUMMARY | 2024-11-06 18:19 | XMS_ITS | Encounter Summary ---
Author Organization [facility] Address 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
--- OUTSIDE RECORDS SUMMARY | 2024-11-06 18:19 | XMS_ITS | Encounter Summary ---
Author Organization [employer] Address 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 [address] [place], [place] [id number] PCP - General 10/09/05 documented as of this encounter
--- OUTSIDE RECORDS SUMMARY | 2024-11-06 18:19 | XMS_ITS | Encounter Summary ---
Author Organization [facility] Address [address] [place] [address] Care Team Providers Care Depot Manager Name Role Phone Emeka Ibanez MD Primary Care Provider [phone] Encounter Details Date Type Department Care Team (Late st Contact Info) Description 08/14/2005 Outpatient Historical [facility] 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
--- OUTSIDE RECORDS SUMMARY | 2024-11-06 18:19 | XMS_ITS | Encounter Summary ---
Author Organization [employer] [facility] Address [address] [place] [address] Care Team Providers Care Dial Lathe Operator Name Role Phone Emeka Ibanez MD Primary Care Provider [phone] Encounter Details Date Type Department Care Team (Late st Contact Info) Description 09/02/2005 Outpatient Historical [facility] ([facility]t Cardiology-[facility]) [address] 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
--- OUTSIDE RECORDS SUMMARY | 2024-11-06 18:19 | XMS_ITS | Encounter Summary ---
Author Organization [employer] [facility] Address [address] [place] [address] Care Team Providers Care Costume Mistress Name Role Phone Emeka Ibanez MD Primary Care Provider [phone] Encounter Details Date Type Department Care Team (Late st Contact Info) Description 09/02/2005 Outpatient Historical [facility] ([facility]) [address] 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
--- OUTSIDE RECORDS SUMMARY | 2024-11-06 18:19 | XMS_ITS | Encounter Summary ---
Author Organization [facility] Address 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
--- OUTSIDE RECORDS SUMMARY | 2024-11-06 18:19 | XMS_ITS | Encounter Summary ---
Author Organization [facility] Address 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 No major weight gain or loss. No malaise, chills, fever, diaphoresis.. ENT: No hearing loss, epistaxis, hoarseness or dysphagia. No sinus congestion.. ENDOCRINE: No heat or cold intolerance, no excessive thirst.. CARDIAC: No chest pain, palpitations, orthopnea, dyspnea on exertion, or paroxysmal nocturnal dyspnea.. RESPIRATORY: No dyspnea, cough, hemoptysis or wheezing.. : No dysuria or hematuria.. GI: No abdominal pain, nausea, vomiting, diarrhea, constipation, melena, or hematochezia.. PHYSICAL EXAMINATION: CONSTITUTIONAL: GENERAL APPEARANCE: Healthy appearing [...] rubs, or gallops. ARTERIAL: No aortic bruits. JUGULAR VEINS EDEMA/VARICOSITIES OF EXTREMITIES: No edema or varicosities. GASTROINTESTINAL: ABDOMEN: Soft, non-tender, without masses. Bowel sounds active. LIVER/SPLEEN/KIDNEY: No hepatosplenomegaly, tenderness or nodularity. Kidneys not palpable. MUSCULOSKELETAL EXAM: EXTREMITIES: PE/MS/BILAT UPPER EXT No [...] Normal memory. Mood and affect appropriate. ASSESSMENT/PLAN: V70.0-ROUTINE GENERAL MEDICAL EXAMINATION ASSESSMENT: ADOPTION FORM COMPLETED AND WILL BE RETURNED TO PT IN 48 HOURS IF HIS PPD TEST IS NEG--SEE FORM V74.1-SPECIAL SCREENING EXAM FOR TUBERCULOSIS LAB ORDERS: Order number: [id number] Test Ordered: [id number] PREVENTIVE COUNSELING The patient was counseled. RETURN VISIT : Patient is to return on an as needed basis. Electronically Signed by: Emeka Ibanez MD on Thursday, July 19, 2007 documented in this encounter Plan of Treatment Not on file documented as of this encounter Visit Diagnoses Not on filedocumented in this encounter Care Teams Web Operations Manager Relationship Specialty Start [place] [address] [address] PCP - General 10/09/05 documented as of this encounter
--- OUTSIDE RECORDS SUMMARY | 2024-11-06 18:19 | XMS_ITS | Encounter Summary ---
Author Organization [facility] Address 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
--- OUTSIDE RECORDS SUMMARY | 2024-11-06 18:19 | XMS_ITS | Encounter Summary ---
Author Organization [facility] Address [address] [place] [address] Care Team Providers Care Screen Printing Machine Loader Unloader Name Role Phone Emeka Ibanez MD Primary Care Provider [phone] Encounter Details Date Type Department Care Team (Late st Contact Info) Description 10/08/2001 Outpatient [facility] [address] Internal Medicine [address] [phone] Emeka Ibanez [place] [id number] [place] [address] Social History Tobacco Use Types Packs/Day Years Used Date Smoking Tobacco: Never Assessed Sex and Gender Information Value Date Recorded Sex Assigned at Not on file 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
--- OUTSIDE RECORDS SUMMARY | 2024-11-06 18:19 | XMS_ITS | Encounter Summary ---
Author Organization [employer] Address [address] [place] [address] Care Team Providers Care Supervisor Prep Name Role Phone Emeka Ibanez MD Primary Care Provider [phone] Encounter Details Date Type Department Care Team (Latest Contact Info) Description 09/02/2005 Inpatient Historical [facility] Heena Cosme Alexis J, DO Essential Hypertension, Malignant (Primary Dx) Social History Tobacco Use Types Packs/Day Years Used Date Smoking Tobacco: Never Assessed Sex and Gender Information Value Date Recorded Sex Assigned at Not on file Legal Sex Male 5:22 AM IT BUSINESS ANALYST Gender Identity Not on file Sexual Orientation Not on file documented as of this encounter Plan of Treatment Not on file documented as of this encounter Procedures Procedure Name Priority Date/Time Associated Diagnosis Comments TROPONIN (W/REFLEX CKMB/CK) Routine 09/02/2005 11:10 PM IT BUSINESS ANALYST POTASSIUM LEVEL Routine 09/02/2005 11:10 PM IT BUSINESS ANALYST TROPONIN (W/REFLEX CKMB/CK) Routine 09/02/2005 4:39 PM IT BUSINESS ANALYST CBC WITH DIFFERENTIAL Routine 09/02/2005 4:39 PM IT BUSINESS ANALYST CBC WITH DIFFERENTIAL Routine 09/02/2005 4:39 PM IT BUSINESS ANALYST documented in this encounter Results * POTASSIUM LEVEL (09/02/2005 11:10 PM IT BUSINESS ANALYST) POTASSIUM 3.5 3.5 - 4.9 mmol/L INTERFACE SYSTEM Comment:Significant change f rom prior result, correlate clinically and redraw if necessary. 09/02/2005 11:1 0 PM IT BUSINESS ANALYST Jai Meraz MD CHEMISTRY ORDERABLES Final R esult Performing Organization Address City/[facility] Co de Phone Number INTERFACE SYSTEM Refer to clinic/hospital department * TROPONIN (W/REFLEX CKMB/CK) (09/02/2005 11:10 PM IT BUSINESS ANALYST) TROPONIN T 0.01 <=0.03 ng/mL INTERFACE SYSTEM Comment:performed on E170 TROPONIN T INTERP Negative INTERFACE SYSTEM 09/02/2005 11:1 0 PM IT BUSINESS ANALYST Jai Meraz MD CHEMISTRY ORDERABLES Final R esult Performing Organization Address City/[facility] de Phone Number INTERFACE SYSTEM Refer to clinic/hospital department * TROPONIN (W/REFLEX CKMB/CK) (09/02/2005 4:39 PM IT BUSINESS ANALYST) TROPONIN T <0.01 <=0.03 ng/mL INTERFACE SYSTEM TROPONIN T INTERP Negative INTERFACE SYSTEM 09/02/2005 4:39 PM IT BUSINESS ANALYST [facility] Provider CHEMISTRY ORDERABLES Final R esult Performing Organization Address City/[facility] Co de Phone Number INTERFACE SYSTEM Refer to clinic/hospital department * CBC WITH DIFFERENTIAL (09/02/2005 4:39 PM IT BUSINESS ANALYST) NEUTROPHILS 61 45 - 70 % INTERFAC E SYSTEM LYMPHOCYTES 25 16 - 45 % INTERFAC E SYSTEM MONOCYTES 10 3 - 13 % INTERFACE SYSTEM EOSINOPHILS 4 0 - 7 % INTERFAC E SYSTEM BASOPHILS 1 0 - 2 % INTERFACE SYSTEM NEUTROPHIL ABSOLUTE 2.68 1.90 - 7.00 K/uL INTERFACE SYSTEM LYMPHOCYTE ABSOLUTE 1.11 0.70 - 4.50 K/uL INTERFACE SYSTEM MONOCYTE ABSOLUTE 0.43 0.10 - 1.30 K/uL INTERFACE SYSTEM EOSINOPHIL ABSOLUTE 0.16 0.00 - 0.70 K/uL INTERFACE SYSTEM BASOPHILS ABSOLUTE 0.05 0.00 - 0.20 K/uL INTERFACE SYSTEM 09/02/2005 4:39 PM IT BUSINESS ANALYST Historical Provider HEMATOLOGY ORDERABLES Final Result Performing Organization Address [facility] Phone Number INTERFACE SYSTEM Refer to clinic/hospital department * CBC WITH DIFFERENTIAL (09/02/2005 4:39 PM IT BUSINESS ANALYST) WBC 4.4 4.0 - 9.8 K/uL INTERFACE SYSTEM RBC 4.60 4.50 - 5.40 M/uL INTERFACE SYSTEM HEMOGLOBIN 13.7 13.6 - 16.5 g/dL INTERFACE SYSTEM HEMATOCRIT 40.6 40.0 - 48.0 % INTERFACE SYSTEM MCV 88.3 82.0 - 99.0 fL INTERFACE SYSTEM MCH 29.8 27.2 - 32.6 pg INTERFACE SYSTEM MCHC 33.7 31.5 - 35.5 % INTERFACE SYSTEM RDW 13.0 11.5 - 14.5 % INTERFACE SYSTEM RDW-STDEV 41.7 37.1 - 48.7 fL INTERFACE SYSTEM PLATELETS 203 140 - 350 K/uL INTERFACE SYSTEM MPV 11.9 9.3 - 12.4 fL INTERFACE SYSTEM 09/02/2005 4:39 PM IT BUSINESS ANALYST [facility] Provider HEMATOLOGY ORDERABLES Final Result Performing Organization Address [facility] Phone Number INTERFACE SYSTEM Refer to clinic/hospital department documented in this encounter Visit Diagnoses Diagnosis Essential hypertension, malignant- Primary documented in this encounter Care Teams Supervisor Prep Relationship Specialty Start [place] [address] [address] PCP - General 10/09/05 documented as of this encounter
--- OUTSIDE RECORDS SUMMARY | 2024-11-06 18:19 | XMS_ITS | Encounter Summary ---
Author Organization [facility] Address 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 ALTERNATIVE PHONE NUMBER: [phone] CURRENT ALLERGY LIST: DEMEROL PHARMACY NUMBER: [phone] OTHER INFORMATION: [employer] is working. SECTION 1: REQUESTED ACTION marshall 05/25/06 at 12:17 pm: MEDICATION REQUEST: (Said he'll call back to make appt) MEDICATION REQUEST: Patient requests a refill. (had been given samples of Lexapro) Needs script called into pharmacy. DOCTOR`S RESPONSE: denisha 05/25/06 at 12:28 pm MEDICATIONS: LEXAPRO ORAL TABLET 10 MG, 1 Every Day, 30 Dispensed, 12 Fills, status: CONTINUED, 05/25/2006. FINAL ACTION: elana 05/25/06 at 03:52 pm Booked appointment: Called pharmacy at 05/25/06 at 03:52 pm. jrf Electronically Signed by: Zuly Herman on Thursday, May 25, 2006 documented in this encounter Plan of Treatment Not on file documented as of this encounter Visit Diagnoses Not on filedocumented in this encounter Care Teams Icu Specialist Relationship Specialty Start [place] [address] [address] PCP - General 10/09/05 documented as of this encounter
--- OUTSIDE RECORDS SUMMARY | 2024-11-06 18:19 | XMS_ITS | Encounter Summary ---
Author Organization [facility] Address 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 Gender Identity Not on file Sexual Orientation Not on file documented as of this encounter Last Filed Vital Signs Vital Sign Reading Time Taken Comments Blood Pressure 138/80 09/16/2004 9:45 AM CDT Pulse - - Temperature - - Respiratory Rate - - Oxygen Saturation - - Inhaled Oxygen Concentration - - Weight 90.7 kg (200 lb) 09/16/2004 9:45 AM CDT Height - - Body Mass Index - - documented in this encounter Plan of Treatment Not on file documented as of this encounter Visit Diagnoses Not on filedocumented in this encounter Care Teams Enterprise Security Architect Relationship Specialty Start Date End Date Emeka Ibanez [place] [address] [place] [address] [address] [place], [place] [phone] PCP - General 10/09/05 documented as of this encounter
--- OUTSIDE RECORDS SUMMARY | 2024-11-06 18:19 | XMS_ITS | Encounter Summary ---
Author Organization [facility] Address 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
--- OUTSIDE RECORDS SUMMARY | 2024-11-06 18:19 | XMS_ITS | Encounter Summary ---
Author Organization [facility] Address [address] [place] [address] Care Team Providers Care Supervisor Park Workers Name Role Phone Emeka Ibanez MD Primary Care Provider [phone] Encounter Details Date Type Department Care Team (Late st Contact Info) Description 07/19/2007 Outpatient [facility] Internal Medicine [address] [phone] Emeka Ibanez MD [address] [place] [address] Social History Tobacco Use Types Packs/Day Years Used Date Smoking Tobacco: Never Assessed Sex and Gender Information Value Date Recorded Sex Assigned at Not on file Legal Sex Male 5:22 AM DIRECTOR OF WOMEN'S SERVICES Gender Identity Not on file Sexual Orientation Not on file documented as of this encounter Plan of Treatment Not on file documented as of this encounter Visit Diagnoses Not on filedocumented in this encounter Care Teams Supervisor Park Workers Relationship Specialty Start Date End Date Emeka Ibanez MD [address] [place] [id number] PCP - General 10/09/05 documented as of this encounter
--- OUTSIDE RECORDS SUMMARY | 2024-11-06 18:19 | XMS_ITS | Encounter Summary ---
Author Organization [employer] Address [address] [place] [address] Care Team Providers Care Wrecking Mechanic Name Role Phone Emeka Ibanez MD Primary Care Provider [phone] Encounter Details Date Type Department Care Team (Late st Contact Info) Description 08/13/2005 Outpatient Historical [facility] [address] [place] [address] Nabil Harding MD 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
--- OUTSIDE RECORDS SUMMARY | 2024-11-06 18:19 | XMS_ITS | Encounter Summary ---
Author Organization [facility] Address [address] [place] [address] Care Team Providers Care Ruby Software Developer Name Role Phone Emeka Ibanez MD Primary Care Provider [phone] Encounter Details Date Type Department Care Team (Late st Contact Info) Description 08/18/2005 Orders Only [facility] Internal Medicine [address] [address] Emeka Ibanez MD [address] [place] [address] Social History Tobacco Use Types Packs/Day Years Used Date Smoking Tobacco: Never Assessed Sex and Gender Information Value Date Recorded Sex Assigned at Not on file Legal Sex Male 5:22 AM TELEPHONE CLAIMS REPRESENTATIVE Gender Identity Not on file Sexual Orientation Not on file documented as of this encounter Progress Notes * Emeka Ibanez MD - 03/16/2008 6:01 PM CDT TIME:05:44 pm PATIENT`S HOME PHONE: PATIENT`S WORK PHONE: PATIENT`S INSURANCE: [employer] PPO WHO TOOK THE CALL: Cecile Barraza C PROBLEMS: documented in this encounter Plan of Treatment Not on file documented as of this encounter Visit Diagnoses Not on filedocumented in this encounter Care Teams Ruby Software Developer Relationship Specialty Start Date End Date Emeka [place]banez [place] [id number] [place] [address] [address] [place] [address] PCP - General 10/09/05 documented as of this encounter
--- OUTSIDE RECORDS SUMMARY | 2024-11-06 18:19 | XMS_ITS | Encounter Summary ---
Author Organization [facility] Address [address] [place] [address] Care Team Providers Care Web Analyst Name Role Phone Emeka Ibanez MD Primary Care Provider [phone] Encounter Details Date Type Department Care Team (Late st Contact Info) Description 09/03/2005 Outpatient Historical [facility] [address] [place] [address] Nabil Harding MD [address] [place] [address] Social History Tobacco Use Types Packs/Day Years Used Date Smoking Tobacco: Never Assessed Sex and Gender Information Value Date Recorded Sex Assigned at Not on file Legal Sex Male 5:22 AM SOFTWARE RELEASE MANAGER Gender Identity Not on file Sexual Orientation Not on file documented as of this encounter Plan of Treatment Not on file documented as of this encounter Visit Diagnoses Not on filedocumented in this encounter Care Teams Web Analyst Relationship Specialty [place] [address] [address] PCP - General 10/09/05 documented as of this encounter
--- OUTSIDE RECORDS SUMMARY | 2024-11-06 18:19 | XMS_ITS | Encounter Summary ---
Author Organization [employer] Address [address] [place] [address] Care Team Providers Care Biomedical Engineering Technician Name Role Phone Emeka Ibanez MD Primary Care Provider [phone] Encounter Details Date Type Department Care Team (Late st Contact Info) Description 09/23/2005 Outpatient [facility] [address] [place] [address] Nabil Shukla MD NO ADDRESS ON FILE Social History Tobacco Use Types Packs/Day Years Used Date Smoking Tobacco: Never Assessed Sex and Gender Information Value Date Recorded Sex Assigned at Not on file Legal Sex Male 5:22 AM GENERAL MEDICAL PRACTITIONER Gender Identity Not on file Sexual Orientation Not on file documented as of this encounter Plan of Treatment Not on file documented as of this encounter Visit Diagnoses Not on filedocumented in this encounter Care Teams Biomedical Engineering Technician Relationship Specialty Start [place] [address] [facility] [address] [place], [place] [id number] PCP - General 10/09/05 documented as of this encounter
--- OUTSIDE RECORDS SUMMARY | 2024-11-06 18:19 | XMS_ITS | Encounter Summary ---
Author Organization [facility] Address 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
--- OUTSIDE RECORDS SUMMARY | 2024-11-06 18:19 | XMS_ITS | Encounter Summary ---
Author Organization [facility] Address 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 Gender Identity Not on file Sexual Orientation Not on file documented as of this encounter Last Filed Vital Signs Vital Sign Reading Time Taken Comments Blood Pressure 120/70 11/11/2005 10:00 AM CDT Pulse - - Temperature 36.2 C (97.1 F) 11/11/2005 10:00 AM CDT Respiratory Rate - - Oxygen Saturation - - Inhaled Oxygen Concentration - - Weight 89.4 kg (197 lb) 11/11/2005 10:00 AM CDT Height - - Body Mass Index - - documented in this encounter Plan of Treatment Not on file documented as of this encounter Visit Diagnoses Not on filedocumented in this encounter Care Teams Sock Mender Relationship Specialty Start Date End Date Emeka Ibanez [place] [address] [place] [address] PCP - General 10/09/05 documented as of this encounter
--- OUTSIDE RECORDS SUMMARY | 2024-11-06 18:19 | XMS_ITS | Encounter Summary ---
Author Organization [facility] Address 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 except cholesterol too high DIABETES TESTS: Fasting blood sugar is ok. THYROID: Thyroid test is ok. PSA: PSA test is ok. LIVER ENZYMES: Liver enzymes are ok. RENAL FUNCTION: Renal function is ok. fax results to his lawyer real estate unless his lawyer real estate addresses, he should increase his lipitor to 20 mg daily and repeat lipids and CMP in 3 months denisha 06/02/06 05:44 pm ADDITIONAL TEST REQUESTS/ORDERS: . 272.4-HYPERLIPIDEMIA LAB ORDERS: in 3 months Order number: [id number] Test Ordered: COMPREHENSIVE METABOLIC PANEL & GFR 1099 Order number: [id number] Test Ordered: LIPID PANEL 1078 denisha 06/02/06 05:44 pm MEDICATIONS: LIPITOR ORAL TABLET 10 MG, 1 Every Day, 1 Dispensed, status: DISCONTINUED, 06/02/2006. LIPITOR ORAL TABLET 20 MG, 1 Every Day, 30 Dispensed, 12 Fills, status: NEW PRESCRIPTION, 06/02/2006. ukendr 06/03/06 01:54 pm STAFF FOLLOW UP: . spoke with pt. given above results and directions phoned script to pharmacy. mailed lab order to Pt. faxed labs to Dr. Shukla. / tan Electronically Signed by: Marycruz Stinson on Saturday, June 03, 2006 documented in this encounter Plan of Treatment Not on file documented as of this encounter Visit Diagnoses Not on filedocumented in this encounter Care Teams Supervisor Print Line Relationship Specialty [place] [address] [address] PCP - General 10/09/05 documented as of this encounter
--- OUTSIDE RECORDS SUMMARY | 2024-11-06 18:19 | XMS_ITS | Encounter Summary ---
Author Organization [facility] Address 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 Gender Identity Not on file Sexual Orientation Not on file documented as of this encounter Last Filed Vital Signs Vital Sign Reading Time Taken Comments Blood Pressure 130/80 04/08/2006 9:00 AM ADVANCED SEAL DELIVERY SYSTEM Pulse - - Temperature - - Respiratory Rate - - Oxygen Saturation - - Inhaled Oxygen Concentration - - Weight 91.6 kg (202 lb) 04/08/2006 9:00 AM ADVANCED SEAL DELIVERY SYSTEM Height - - Body Mass Index - - documented in this encounter Plan of Treatment Not on file documented as of this encounter Visit Diagnoses Not on filedocumented in this encounter Care Teams Fixed Wing Pilot Relationship Specialty Start Date End Date Emeka Ibanez [place] [address] [place] [id number] PCP - General 10/09/05 documented as of this encounter
--- OUTSIDE RECORDS SUMMARY | 2024-11-06 18:19 | XMS_ITS | Encounter Summary ---
Author Organization Address 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 Gender Identity Not on file Sexual Orientation Not on file documented as of this encounter Last Filed Vital Signs Vital Sign Reading Time Taken Comments Blood Pressure 130/80 05/29/2006 9:15 AM MEAT SALES AND STORAGE MANAGER Pulse - - Temperature - - Respiratory Rate - - Oxygen Saturation - - Inhaled Oxygen Concentration - - Weight 90.7 kg (200 lb) 05/29/2006 9:15 AM MEAT SALES AND STORAGE MANAGER Height - - Body Mass Index - - documented in this encounter Plan of Treatment Not on file documented as of this encounter Visit Diagnoses Not on filedocumented in this encounter Care Teams Catalogue And Special Products Manager Relationship Specialty Start Date End Date Emeka Ibanez [place] [address] [place] [id number] PCP - General 10/09/05 documented as of this encounter
--- OUTSIDE RECORDS SUMMARY | 2024-11-06 18:19 | XMS_ITS | Encounter Summary ---
Author Organization [facility] Address 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 Gender Identity Not on file Sexual Orientation Not on file documented as of this encounter Last Filed Vital Signs Vital Sign Reading Time Taken Comments Blood Pressure 160/90 10/14/2004 9:45 AM CDT Pulse - - Temperature - - Respiratory Rate - - Oxygen Saturation - - Inhaled Oxygen Concentration - - Weight 91.6 kg (202 lb) 10/14/2004 9:45 AM CDT Height - - Body Mass Index - - documented in this encounter Plan of Treatment Not on file documented as of this encounter Visit Diagnoses Not on filedocumented in this encounter Care Teams Domain Architect Relationship Specialty [place] [address] [facility] [address] [place], [place] [phone] PCP - General 10/09/05 documented as of this encounter
--- OUTSIDE RECORDS SUMMARY | 2024-11-06 18:19 | XMS_ITS | Encounter Summary ---
Author Organization [facility] Address 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 Gender Identity Not on file Sexual Orientation Not on file documented as of this encounter Last Filed Vital Signs Vital Sign Reading Time Taken Comments Blood Pressure 152/90 01/16/2005 4:00 PM CDT Pulse - - Temperature - - Respiratory Rate - - Oxygen Saturation - - Inhaled Oxygen Concentration - - Weight 88 kg (194 lb) 01/16/2005 4:00 PM CDT Height - - Body Mass Index - - documented in this encounter Plan of Treatment Not on file documented as of this encounter Visit Diagnoses Not on filedocumented in this encounter Care Teams Bookkeeping Assistant Relationship Specialty Start Date End Date Emeka Ibanez [place] [address] [place] [id number] PCP - General 10/09/05 documented as of this encounter
--- OUTSIDE RECORDS SUMMARY | 2024-11-06 18:19 | XMS_ITS | Encounter Summary ---
Author Organization [facility] Address 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
--- OUTSIDE RECORDS SUMMARY | 2024-11-06 18:19 | XMS_ITS | Encounter Summary ---
Author Organization [facility] Address 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 Gender Identity Not on file Sexual Orientation Not on file documented as of this encounter Last Filed Vital Signs Vital Sign Reading Time Taken Comments Blood Pressure 150/80 09/30/2004 4:15 PM CDT Pulse - - Temperature - - Respiratory Rate - - Oxygen Saturation - - Inhaled Oxygen Concentration - - Weight 89.8 kg (198 lb) 09/30/2004 4:15 PM CDT Height - - Body Mass Index - - documented in this encounter Plan of Treatment Not on file documented as of this encounter Visit Diagnoses Not on filedocumented in this encounter Care Teams Grain Processor Relationship Specialty Start [place] [address] [facility] [address] [place], [place] [phone] PCP - General 10/09/05 documented as of this encounter
--- OUTSIDE RECORDS SUMMARY | 2024-11-06 18:20 | XMS_ITS | Encounter Summary ---
Author Organization [facility] Address 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 [address] D.O.B: 1945 SSN: [id number] Parent/Guardian if applicable: Patient Insurance: [employer] PPO ID#: [id number] Group#: ORDER(S) #: [id number] xray of left elbow, left forearm ..... 04-01-07 letter sent PLEASE SCHEDULE THE APPOINTMENT AT THE FOLLOWING LOCATION: WHERE SCHEDULED. walk in ORDERING PHYSICIAN: JESSICA CRAIN MD OFFICE INK BLENDER & PHONE: Zuly Herman R ADDITIONAL OFFICE COMMENTS: DATE: MAY 07, 2007 Note Created By: Rachael Rae E 01:46 p sent letter to pt 04-01-07 & never recd response if test was done * Jessica Crain MD - 10/22/2007 7:05 PM CDT WEIGHT: 205lbs BLOOD PRESSURE: 150/82 Right Arm Sitting NURSE NAME: Enrique Tan N TOBACCO USE Patient does not currently use tobacco. CHIEF COMPLAINT Patient here for follow up anxiety, Coronary Artery Disease (CAD), hyperlipidemia, hypertension. HISTORY: FUP RE BELOW PMS[facility]/POS R/U REVIEWED RECENT LABS W/ PT WONDERS ABOUT LAB RECOMMENDATION GIVEN PMH WONDERS ABOUT RISKS/BENEFITS OF BLOOD THINNERS C/O LEFT ELBOW PAIN AND DECREASED ROM X 3 WEEKS....NO OBVIOUS INJURY ...NO APPARENT PHYSICAL CHANGE...NO HX SIMILAR.... RECALLS IN 1989 BEING TOLD AFTER XRAY THAT HE HAD FLOATING BONE CHIP ALSO LEFT SHOULDER PAIN W/ ROM--WANTS TX FOR PAIN HISTORY: 272.4-HYPERLIPIDEMIA The patient's most recent LDL is at goal, most recent HDL is not at goal, mostrecent triglyceride is not at goal. 300.02-ANXIETY DISORDER The condition has improved. No complications noted from the medication presently being used. 401.1-HYPERTENSION ESSENTIAL BENIGN The blood pressure readings taken outside the office since the last visit are as follows: the systolic range has been 140's to 130's. 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 CURRENT MEDICATION LIST: ASPIRIN LOW STRENGTH ORAL [...] ORAL TABLET 25 MG, 1/2 Every Morning CURRENT ALLERGY LIST: DEMEROL PHYSICAL EXAMINATION: CONSTITUTIONAL: [...] nodularity. Kidneys not palpable. MUSCULOSKELETAL EXAM: EXTREMITIES: LEFT UPPER: NO APPARENT SYNOVITIS PAIN W/ FROM OFLEFT ELBOW AND SHOULDER BILATERAL LOWER EXTREMITIES: No misalignment or tenderness. Full range of motion. Normal stability,strength and tone. SKIN: SKIN: Warm, dry, no diaphoresis, no significant lesions, irritation, rashes or ulcers. No induration, obvious subcutaneous nodules or tightening. NEUROLOGIC: NONFOCAL PSYCHIATRIC: Judgment appropriate. Oriented. Normal memory. Mood and affect appropriate. ASSESSMENT/PLAN: 272.4-HYPERLIPIDEMIA ASSESSMENT: Will not change medication, continue to monitor for complications. A low cholesterol diet was encouraged. Weight loss was encouraged. Regular exercise was encouraged. LAB ORDERS: IN 3 MOS Order number: [id number] Test Ordered: COMPREHENSIVE METABOLIC PANEL & GFR 1112 Order number: [id number] Test Ordered: LIPID PANEL 1078 Order number: [id number] Test Ordered: PSA, TOTAL 1002 CLINICAL GUIDELINES: Hypercholesterolemia clinical guidelines reviewed. 300.02-ANXIETY DISORDER ASSESSMENT: The patient's anxiety remains stable. Will not change medication, continue to monitor for complications. 401.1-HYPERTENSION ESSENTIAL BENIGN ASSESSMENT: Will add medication to current regimen for better control. The blood pressure has worsened. REC MONITOR TO SBP GOAL <130 MEDICATIONS: HYDROCHLOROTHIAZIDE ORAL TABLET 25 MG, 1/2 Every Morning, 30 Dispensed, 12 Fills, status: NEW PRESCRIPTION, 03/05/2007. CLINICAL GUIDELINES: Hypertension clinical guidelines reviewed. 414.00-CORONARY ARTERY DISEASE ASSESSMENT: REASSURED PT RE BENEFITS OF CURRENT TX REC HE DISCUSS W/ CARDIO LENGTH OF PLAVIX TX CLINICAL GUIDELINES: Post myocardial clinical guidelines reviewed. 959.3-INJURY TO ELBOW/FOREARM/WRIST ASSESSMENT: WILL TX SXs AND O/C REC XRAYS TO ASSESS PAST HX MEDICATIONS: HYDROCODONE-ACETAMINOPHEN ORAL TABLET 5-325 MG, 1 Three Times A Day, As Needed FOR PAIN, 30 Dispensed, status: NEW PRESCRIPTION, 03/05/2007. LAB ORDERS: Order number: [id number] Test Ordered: XRAY FOREARM LEFT Order number: [id number] Test Ordered: XRAY ELBOW LEFT PREVENTIVE COUNSELING The patient was counseled. RETURN VISIT : Patient instructed to return in 3 months. Electronically Signed by: Jessica Crain MD on Monday, March 05, 2007 documented in this encounter Plan of Treatment Not on file documented as of this encounter Visit Diagnoses Not on filedocumented in this encounter Care Teams Technology And Engineering Teacher Relationship Specialty [place] [address] [address] PCP - General 10/09/05 documented as of this encounter
--- OUTSIDE RECORDS SUMMARY | 2024-11-06 18:20 | XMS_ITS | Encounter Summary ---
Author Organization [employer] [facility] Address [address] [place] [address] Care Team Providers Care Ore Sampler Name Role Phone Emeka Ibanez MD Primary Care Provider [phone] Encounter Details Date Type Department Care Team (Late st Contact Info) Description 07/07/2006 Outpatient Historical [facility] Cardiology-[facility]) [address] 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
--- OUTSIDE RECORDS SUMMARY | 2024-11-06 18:20 | XMS_ITS | Encounter Summary ---
Author Organization [facility] Address 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
--- OUTSIDE RECORDS SUMMARY | 2024-11-06 18:20 | XMS_ITS | Encounter Summary ---
Author Organization [facility] Address [address] [place] [address] Care Team Providers Care Barometers Calibrator Name Role Phone Emeka Ibanez MD Primary Care Provider [phone] Encounter Details Date Type Department Care Team (Late st Contact Info) Description 03/05/2007 Outpatient Historical [facility] Internal Medicine [address] [address] Emeka Ibanez MD [address] [place] [address] [id number] Social History Tobacco Use Types Packs/Day Years Used Date Smoking Tobacco: Never Assessed Sex and Gender Information Value Date Recorded Sex Assigned at Not on file Legal Sex Male 5:22 AM 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 AND OCCUPANCY INTERVIEWER Gender Identity Not on file Sexual Orientation Not on file documented as of this encounter Last Filed Vital Signs Vital Sign Reading Time Taken Comments Blood Pressure 150/82 03/05/2007 9:30 AM CDT Pulse - - Temperature - - Respiratory Rate - - Oxygen Saturation - - Inhaled Oxygen Concentration - - Weight 93 kg (205 lb) 03/05/2007 9:30 AM CDT Height - - Body Mass Index - - documented in this encounter Plan of Treatment Not on file documented as of this encounter Visit Diagnoses Not on filedocumented in this encounter Care Teams Barometers Calibrator Relationship Specialty Start Date End Date Emeka Ibanez [place] [id number] [place] [id number] PCP - General 10/09/05 documented as of this encounter
--- OUTSIDE RECORDS SUMMARY | 2024-11-06 18:20 | XMS_ITS | Encounter Summary ---
Author Organization [employer] Address 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
--- OUTSIDE RECORDS SUMMARY | 2024-11-06 18:20 | XMS_ITS | Encounter Summary ---
Author Organization [employer] Address [address] [place] [address] Care Team Providers Care Ironing Machine Operator Name Role Phone Emeka Ibanez MD Primary Care Provider [phone] Encounter Details Date Type Department Care Team (Late st Contact Info) Description 07/07/2006 Outpatient [facility] Division of Neurology [address] [facility], [address] [address] Marybeth French MD [address] [facility] [address] [place] [address] Social History Tobacco Use Types Packs/Day Years Used Date Smoking Tobacco: Never Assessed Sex and Gender Information Value Date Recorded Sex Assigned at Not on file 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
--- NOTE | 2024-11-06 19:49 | ED.CHESTPAIN ---
HPI - Chest Pain General Chief Complaint: Chest Pain Stated Complaint: Dizzy, Chest/shoulder pain x 3 days Time Seen by Provider: 11/06/24 19:45 Source: patient and family Limitations: other (Hard of hearing) History of Present Illness HPI narrative: Patient presents with report of chest pain this primarily central/left-sided as well as shoulder pain occurring intermittently over the past 3-4 days. He has also been having dizziness that is worse when he moves from a seated to standing position or when he bends over. 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 No acute changes. He has not had any unilateral symptoms in his body or face. No slurred speech. His dizziness has caused him to fall nearly 5 times although he denies any loss of consciousness/syncope. His caughter him a few times. He is on Plavix but did not strike his head. No diaphoresis. reports that he has nitroglycerin for cardiac issues at baseline. No shortness of breath. He has been nauseated but no vomiting. Denies any fevers but he has been chilled. No cough or sick contacts. Denies any pain. He does have intermittent tinnitus, chronic. Patient confirms he has a primary care physician. Cardiac risk factors HTN: 0 HLD: 0 (but on statin) DM: 0 Obese: 0 Smoker: 0 Personal history IA/TIA/CVA: Yes, IA & triple bypass Fam Hx IA in first degree relative <65yo: 0 Related Data Home Medications ?Medication ?Instructions ?Recorded ?Confirmed ?Last Taken ?Type Nitrol 02/24/24 Unknown History amlodipine 5 mg tablet mg 02/24/24 Unknown History atorvastatin 40 mg tablet 40 mg PO DAILY 02/24/24 Unknown History citalopram 20 mg tablet 20 mg PO DAILY 02/24/24 Unknown History clopidogrel 75 mg tablet (Plavix) mg 02/24/24 Unknown History metoprolol tartrate 50 mg tablet 50 mg PO BID 02/24/24 Unknown History Allergies Allergy/AdvReac Type Severity Reaction Status Date / Time meperidine (From Demerol) Allergy Anaphylaxis Verified 02/24/24 23:44 [facility] Past Medical History Medical History History of skull fracture 1960s Hard of hearing right Myocardial infarction Surgical History Surgical History S/P triple vessel bypass Social History Social History Social History: Has animals (horses, etc.) at home Smoking status: Never smoker Living arrangements: with family Occupation/Education: retired Exam Narrative: GENERAL: Well-appearing, well-nourished, and in no acute distress. HEAD: Normocephalic, atraumatic. EYES: Non injected, non icteric. Initial consideration of nystagmus (horizontal bilaterally as well as vertical with upward gaze) but on reassessment of all emmanuel immediately after, none of these are appreciated. ENT: Nares clear, no rhinorrhea or epistaxis. Hard of hearing on the right. Bilateral tympanic membranes with dark cerumen but not impacted. Tacky mucous membranes NECK: Supple. No meningismus. CHEST: Speaking in full sentences. No respiratory distress. HEART: Bradycardic rate and rhythm. . ABDOMEN: Soft, nondistended. No rigidity or guarding. Not peritoneal EXTREMITIES: Normal range of motion. No lower extremity edema. SKIN: Warm, dry, no rash. NEURO: No focal deficits. Alert and oriented. Answering questions. Following commands. Normal speech without aphasia or dysarthria. PSYCH: Normal mood and affect. Course Vital Signs Vital signs: Vital Signs Temperature 97.6 F 11/06/24 17:49 Pulse Rate 54 L 11/06/24 17:49 Respiratory Rate 16 11/06/24 17:49 Blood Pressure 114/54 L 11/06/24 17:49 Pulse Oximetry 100 11/06/24 17:49 Oxygen Delivery Room Air 11/06/24 17:49 Temperature 97.6 F 11/06/24 17:49 Pulse Rate 50 L 11/07/24 00:04 Respiratory Rate 13 11/07/24 00:04 Blood Pressure 138/55 L 11/06/24 23:05 Pulse Oximetry 99 11/07/24 00:04 Oxygen Delivery Room Air 11/06/24 19:43 MDM - Chest Pain MDM Narrative Medical decision making narrative: Patient presents with chest pain and shoulder pain but also dizziness that is in particular worse when he changes position from a sitting to standing position or when he bends over. Symptoms of 3-4 days duration. In the emergency department he is afebrile vital signs notable for bradycardia as well as an acceptable blood pressure although low diastolic blood pressure, mean arterial pressure 74mmHg. HEART SCORE History 2 highly suspicious 1 moderately suspicious 0 slightly suspicious History score [address] depression/elevation not due to LBBB, LVH, or digoxin [address] depression but LBBB, LVH, nonspecific repolarization changes 0 normal ECG score 0 Age 2 >/= 65 1 45-64 0 <45 Age score 2 Risk factors (HTN, hypercholesterolemia, DM, obesity with BMI >30, current smoker or cessation </=3mo), positive fam hx with parent or sibling with CVD before age 65, atherosclerotic disease (prior IA, PCI/CABG, CVA/TIA, or peripheral arterial disease) 2 >/= 3 risk factors or history of atherosclerotic dz 1 - 1-2 risk factors 0 no known risk factors Risk factor score 1 Initial Troponin 2 >3 times normal limit 1 1-3 times normal limit 0 less than or equal to normal limit Troponin score 0 Total HEART Score 3. Creatinine 1.74 from 1.3 previously representing an GWENDOLYN. 1 L IV fluids ordered. This may also help with his dizziness as ortho stats are positive upon review. He reports being cold all the time so TSH ordered which is normal. BNP is elevated with no prior for comparison. Patient does have some areas of stenosis on CTA; symptoms >72 hours old. 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 Regardless though, again symptoms present for several days so also deferred consulting stroke/endovascular at an outside hospital. Humphreys Syncope Rule (although patient technically did not have a syncopal episode, it was near syncope) Congestive heart failure history: BNP elevated today but not volume overloaded on exam. Hematocrit <30%: No EKG abnormal (changed or any non-sinus rhythm): Minor changes from previous SOB symptoms: No SBP <90mmHg at triage: No No pulmonary embolism. CT as below. Patient ambulates with a steady unassisted gait. He is no longer dizzy and has only received IV fluids for this, did not need the meclizine. Orthostats improved. Repeat troponin within normal limits. He is feeling much better on reassessment. We discussed his workup. He notes that he has a history of blunt trauma to the head for which he had a skull fracture in the 1960s. He is currently being worked up for carotid stenosis and had ultrasound performed. He has a primary care physician it is been following this and we discussed the importance of following up with that primary care physician regarding the findings on the CTA today. He and his verifies understanding and are in agreement. She is concerned because he has been having some memory issues and I did encourage her to work with primary care physician on further workup and testing for this. They are comfortabe with discharge. Provided cardiology referral for follow up given low but not negligible heart score. Differential Diagnosis Differential diagnosis: Likely stable angina, unstable angina pectoris, atypical chest pain, st elevation myocardial infarction, chest pain, biliary colic and other (Orthostatic hypotension; vasovagal; considered CVA/TIA / stenosis; thyroid dysfunction) Lab Data Attestation: I reviewed the patient's lab results. 11/06/24 19:53 11/06/24 19:53 Labs: Lab Results 11/06/24 11/06/24 Range/Units 19:53 22:54 WBC 5.3 (4.5-10.0) K/mm3 RBC 4.70 (4.6-6.20) M/mm3 Hgb 14.1 (14.0-18.0) g/dL Hct 43.9 (42.0-52.0) % MCV 93.4 (80-100) fl MCH 30.0 (26-34) pg MCHC 32.1 (32-36) g/dl RDW 13.1 (11.5-14.5) % Plt Count 165 (150-375) k/mm3 MPV 11.5 H (7.4-10.4) fl Immature Gran % (Auto) 0.2 (0-0.5) % Neut % (Auto) 63.2 (45.5-73.1) % Lymph % (Auto) 23.8 (18.3-44.2) % Mcpherson % (Auto) 10.1 H (2.6-8.5) % Eos % (Auto) 1.9 (0-4.4) % Baso % (Auto) 0.8 (0.2-1.2) % Lymph # (Auto) 1.25 (0.9-3.2) K/mm3 Mcpherson # (Auto) 0.5 (0.1-0.6) K/mm3 Eos # (Auto) 0.1 (0-0.3) K/mm3 Baso # (Auto) 0.0 (0.0-0.1) K/mm3 Abs Immat Gran (auto) 0.01 (0.00-0.031) K/mm3 Absolute Neuts (auto) 3.3 (1.3-6.7) K/mm3 Absolute Nucleated RBC 0.000 (0.0-0.012) K/mm3 Nucleated RBC % 0.0 (0.0-0.2) % D-Dimer 0.98 H (<0.48) ug/mL Sodium 140 (137-145) mmol/L Potassium 4.1 (3.4-5.0) mmol/L Chloride 104 (98-107) mmol/L Carbon Dioxide 27 (22-30) mmol/L Anion Gap 9 (4-12) mmol/L BUN 30 H (9-20) mg/dL Creatinine 1.74 H (0.7-1.3) mg/dL Estim Creat Clear Calc 28 ml/min Estimated GFR 38 L (59 - ) Glucose 109 (65-110) mg/dL Calcium 9.1 (8.4-10.2) mg/dL Magnesium 2.3 (1.6-2.3) mg/dL Total Bilirubin 0.8 (0.2-1.3) mg/dL AST 32 (17-59) U/L ALT 19 (6-50) U/L Alkaline Phosphatase 66 (38-126) U/L Troponin I < 0.012 0.013 (0.000-0.034) ng/mL NT-Pro-B Natriuret Pep 2150 H (19.9-100) pg/mL Total Protein 7.0 (6.3-8.2) g/dL Albumin 4.5 (3.5-5.1) g/dL TSH 1.550 (0.465-4.680) uIU/mL Influenza A (RT-PCR) Negative (Negative) Influenza B (RT-PCR) Negative (Negative) RSV (RT-PCR) Negative (Negative) SARS-CoV-2 RNA (RT-PCR) Negative (Negative) Imaging Data Radiologist's impression: Impressions Head/Neck CTA 11/06/24 21:22 IMPRESSION: No acute intracranial process. No large vessel intracranial occlusion or aneurysm. 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 Severe stenosis of the proximal right internal carotid artery at the bifurcation. Severe stenosis of the origin of the left vertebral artery. Hypoplastic right vertebral artery, with slow or absent flow proximally, and reconstitution/visualization at the level of C6. Chest X-Ray 11/06/24 21:46 IMPRESSION: Mild edema versus interstitial change. Trace bilateral pleural effusions or chronic pleural blunting. Chest CTA 11/06/24 22:13 IMPRESSION: No CT evidence of acute pulmonary embolus. 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 ECG Data EKG #1: Attestation: I personally reviewed and interpreted this ECG as follows: ECG completion date: 11/06/24 ECG completion time: 17:58 Prior ECG tracings: available for review (EKG from 02/25/2024 showed sinus bradycardia and right bundle branch block.) Interpretation: Sinus bradycardia at a rate of 52 beats per minute. There is R to R variation consistent with a sinus arrhythmia although P-waves do proceed QRS complexes in QRS complexes follow P-waves. NE interval 146. QRS 149. QT/QTC 490/470. RBBB given QRS greater [id number]; RSR' M-shaped pattern in V1-V3; wide, slurred S wave in lateral leads (I, aVL, V5-6). Left anterior fascicular block with rS complexes in leads II, III, aVF (small R waves, deep S waves), qR complexes in lead I , avL (small Q waves and tall R waves) and left axis deviation with Leads II, III and aVF negative and leads I and aVL positive. No T-wave inversions. EKG #2: Attestation: I personally reviewed and interpreted this ECG as follows: ECG completion date: 11/06/24 ECG completion time: 22:50 Interpretation: Sinus bradycardia rate of 45 beats per minute. Occasional PVCs. NE interval of 55. QRS 149. QT/QTC 424/478. Good R-wave progression across the precordial leads. No T-wave inversions. RBBB given QRS greater [id number]; RSR' M-shaped pattern in V1-V3; wide, slurred S wave in lateral leads (I, aVL, V5-6). Left anterior fascicular block with rS complexes in leads II, III, aVF (small R waves, deep S waves), qR complexes in lead I , avL (small Q waves and tall R waves) and left axis deviation with Leads II, III and aVF negative and leads I and aVL positive. Discharge Plan Discharge Clinical Impression: Bradycardia, sinus, Right bundle branch block, LAFB (left anterior fascicular block), Chest pain, GWENDOLYN (acute kidney injury), Orthostatic dizziness, Postural dizziness with near syncope, Basilar artery stenosis, Stenosis of right internal carotid artery, Stenosis of left vertebral artery Patient Disposition: Home Condition: Stable Instructions: Antibiotic Form, Chest Pain (DC), Acute Kidney Injury (DC), Carotid Artery Disease (DC), Bradycardia (ED), Near Syncope (ED), Dizziness (ED) Additional Instructions: Your kidney function show that you were likely a bit dehydrated and your vital signs suggests that this as well. You received 1 L IV fluids which will likely help with both you were not feeling symptomatic after this. As we discussed, your CTA of the head and neck did show some areas of stenosis but your symptoms have been going on for more than 72 hours so no acute intervention although I do recommend that you follow-up with your primary care physician workup and discussion regarding this. In addition, your chest pain workup did not show any acutely concerning findings and you are otherwise LOW but not NO risk so recommend continuing work up in outpatient setting. If you need a occupational medicine specialist, the name of 1 is listed below. Continue taking your medications as prescribed. Drink plenty of water. Return to the emergency department with any new, worsening, unmanaged symptoms Patient Language: East Timorese Prescriptions: No Action atorvastatin 40 mg Tablet 40 mg PO DAILY clopidogrel [Plavix] 75 mg Tablet amlodipine 5 mg Tablet citalopram 20 mg Tablet 20 mg PO DAILY metoprolol tartrate 50 mg Tablet 50 mg PO BID Nitrol cyclobenzaprine 10 mg tablet 10 mg PO BID PRN (Reason: muscle spasm) Qty: 14 0RF Follow-up/Referrals: Keenan Kaiser MD [Physician] - PHYSICIAN NOT ON STAFF,NONSTAFF [Primary Care Provider] - Time of Disposition: 00:14
[2024-11-06 19:59] LABS: Basophils Percent Auto 0.8 % (0.2-1.2); Eosinophils Absolute Auto 0.1 K/mm3 (0-0.3); Eosinophils Percent Auto 1.9 % (0-4.4); Hematocrit 43.9 % (42.0-52.0); Hemoglobin 14.1 g/dL (14.0-18.0); Immature Granulocyte Absolute 0.01 K/mm3 (0.00-0.031); Immature Granulocyte Percent A 0.2 % (0-0.5); Lymphocytes Absolute Auto 1.25 K/mm3 (0.9-3.2); Lymphocytes Percent Auto 23.8 % (18.3-44.2); Mean Corpuscular HGB Conc 32.1 g/dl (32-36); Mean Corpuscular Volume 93.4 fl (80-100); Mean Platelet Volume 11.5 fl (7.4-10.4); Monocytes Absolute Auto 0.5 K/mm3 (0.1-0.6); Monocytes Percent Auto 10.1 % (2.6-8.5); Neutrophils Absolute Auto 3.3 K/mm3 (1.3-6.7); Neutrophils Percent Auto 63.2 % (45.5-73.1); Platelet Count Result 165 k/mm3 (150-375); Red Cell Distribution Width 13.1 % (11.5-14.5); White Blood Count 5.3 K/mm3 (4.5-10.0)
[2024-11-06 20:09] LABS: Alanine Aminotransferase 19 U/L (6-50); Albumin Level 4.5 g/dL (3.5-5.1); Alkaline Phosphatase 66 U/L (38-126); Anion Gap 9 mmol/L (4-12); Aspartate Amino Transferase 32 U/L (17-59); Bilirubin,Total 0.8 mg/dL (0.2-1.3); Blood Urea Nitrogen 30 mg/dL (9-20); Calcium 9.1 mg/dL (8.4-10.2); Carbon Dioxide 27 mmol/L (22-30); Chloride 104 mmol/L (98-107); Estimated CRCL calculation 28 ml/min; Estimated Glomerular Filt Rate 38; Glucose 109 mg/dL (65-110); Magnesium 2.3 mg/dL (1.6-2.3); Potassium 4.1 mmol/L (3.4-5.0); Sodium 140 mmol/L (137-145)
--- OUTSIDE RECORDS SUMMARY | 2024-11-06 20:16 | XMS_ITS | Encounter Summary ---
Author Organization [facility] Address 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
--- OUTSIDE RECORDS SUMMARY | 2024-11-06 20:16 | XMS_ITS | Encounter Summary ---
Author Organization [facility] Address 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 ALTERNATIVE PHONE NUMBER: [phone] CURRENT ALLERGY LIST: [facility] NUMBER: [phone] OTHER INFORMATION: [employer] is working. SECTION 1: [...] on filedocumented in this encounter Care Teams Sample Book Maker Relationship Specialty Start [place] [address] [address] PCP - General 10/09/05 documented as of this encounter
--- OUTSIDE RECORDS SUMMARY | 2024-11-06 20:16 | XMS_ITS | Encounter Summary ---
Author Organization [facility] [facility] Address [address] [place] [address] Care Team Providers Care Social Worker Health Services Name Role Phone Emeka Ibanez MD Primary Care Provider [phone] Encounter Details Date Type Department Care Team (Late st Contact Info) Description 09/02/2005 Outpatient Historical [facility] [address] 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
--- OUTSIDE RECORDS SUMMARY | 2024-11-06 20:16 | XMS_ITS | Encounter Summary ---
Author Organization [facility] Address 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 Topic: Patient or Caregiver Communication Request >> Mar 14, 2024 3:13 PM Jatin Calixto wrote: Patient or Caregiver insisting that a message be sent to Care Team Caller: Kermit Noe Patient/Caregiver Callback Number: [phone] (mobile) Call Notes: Patient vv keeps disconnecting documented in this encounter Plan of Treatment Not on file documented as of this encounter Visit Diagnoses Not on filedocumented in this encounter Care Teams Agricultural Produce Sorter Relationship Specialty Start [place] [address] [place] [address] PCP - General 10/09/05 documented as of this encounter
--- OUTSIDE RECORDS SUMMARY | 2024-11-06 20:16 | XMS_ITS | Encounter Summary ---
Author Organization [employer] Address [address] [place] [address] Care Team Providers Care Urban Planner Name Role Phone Emeka Ibanez MD Primary Care Provider [phone] Encounter Details Date Type Department Care Team (Late st Contact Info) Description 09/04/2005 Outpatient Historical [facility] [address] 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
--- OUTSIDE RECORDS SUMMARY | 2024-11-06 20:16 | XMS_ITS | Encounter Summary ---
Author Organization [facility] Address [address] [place] [address] Care Team Providers Care Caser Up Name Role Phone Emeka Ibanez MD Primary Care Provider [phone] Encounter Details Date Type Department Care Team (Late st Contact Info) Description 08/13/2005 Outpatient Historical [facility] 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
--- OUTSIDE RECORDS SUMMARY | 2024-11-06 20:16 | XMS_ITS | Encounter Summary ---
Author Organization [facility] Address [address] [place] [address] Care Team Providers Care Multiple Sclerosis Nurse Name Role Phone Emeka Ibanez MD Primary Care Provider [phone] Encounter Details Date Type Department Care Team (Late st Contact Info) Description 07/06/2006 Outpatient Historical [facility] [place] [address] [address] 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
--- OUTSIDE RECORDS SUMMARY | 2024-11-06 20:16 | XMS_ITS | Encounter Summary ---
Author Organization [facility] Address 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
--- OUTSIDE RECORDS SUMMARY | 2024-11-06 20:16 | XMS_ITS | Encounter Summary ---
Author Organization [facility] Address [address] [place] [address] Care Team Providers Care Supervisor Cutting Department Name Role Phone Emeka Ibanez MD Primary Care Provider [phone] Encounter Details Date Type Department Care Team (Late st Contact Info) Description 04/08/2006 Outpatient Historical [facility] Internal Medicine [address] [address] Emeka Ibanze MD [address] [place] [address] [id number] Social History Tobacco Use Types Packs/Day Years Used Date Smoking Tobacco: Never Assessed Sex and Gender Information Value Date Recorded Sex Assigned at Not on file 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 Gender Identity Not on file Sexual Orientation Not on file documented as of this encounter Last Filed Vital Signs Vital Sign Reading Time Taken Comments Blood Pressure 130/80 04/08/2006 9:00 AM SENIOR ABAP DEVELOPER Pulse - - Temperature - - Respiratory Rate - - Oxygen Saturation - - Inhaled Oxygen Concentration - - Weight 91.6 kg (202 lb) 04/08/2006 9:00 AM SENIOR ABAP DEVELOPER Height - - Body Mass Index - - documented in this encounter Plan of Treatment Not on file documented as of this encounter Visit Diagnoses Not on filedocumented in this encounter Care Teams Supervisor Cutting Department Relationship Specialty Start Date End Date Emeka Ibanez [place] [address] [place] [id number] PCP - General 10/09/05 documented as of this encounter
--- OUTSIDE RECORDS SUMMARY | 2024-11-06 20:16 | XMS_ITS | Encounter Summary ---
Author Organization [employer] Address 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
--- OUTSIDE RECORDS SUMMARY | 2024-11-06 20:16 | XMS_ITS | Encounter Summary ---
Author Organization [employer] Address [address] [place] [address] Care Team Providers Care Account Developer Name Role Phone Emeka Ibanez MD Primary Care Provider [phone] Encounter Details Date Type Department Care Team (Late st Contact Info) Description 09/11/2005 Outpatient [facility] 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
--- OUTSIDE RECORDS SUMMARY | 2024-11-06 20:16 | XMS_ITS | Encounter Summary ---
Author Organization [facility] Address [address] [place] [address] Care Team Providers Care Moose Hunter Name Role Phone Emeka Ibanez MD Primary Care Provider [phone] Encounter Details Date Type Department Care Team (Late st Contact Info) Description 08/12/2005 Outpatient Historical [facility] Internal Medicine [address] [phone] Mitch Brower MD [address] [place] [phone] Social History Tobacco Use Types Packs/Day Years Used Date Smoking Tobacco: Never Assessed Sex and Gender Information Value Date Recorded Sex Assigned at Not on file Legal Sex Male 5:22 AM DIRECTOR OF BUSINESS 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
--- OUTSIDE RECORDS SUMMARY | 2024-11-06 20:16 | XMS_ITS | Encounter Summary ---
Author Organization [employer] Address 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
--- OUTSIDE RECORDS SUMMARY | 2024-11-06 20:16 | XMS_ITS | Encounter Summary ---
Author Organization [facility] Address 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
--- OUTSIDE RECORDS SUMMARY | 2024-11-06 20:16 | XMS_ITS | Encounter Summary ---
Author Organization [employer] Address [address] [place] [address] Care Team Providers Care Sheeter Waxer Operator Name Role Phone Emeka Ibanez MD Primary Care Provider [phone] Encounter Details Date Type Department Care Team (Late st Contact Info) Description 08/13/2005 Outpatient Historical [facility] 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
--- OUTSIDE RECORDS SUMMARY | 2024-11-06 20:16 | XMS_ITS | Encounter Summary ---
Author Organization [facility] Address 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
--- OUTSIDE RECORDS SUMMARY | 2024-11-06 20:16 | XMS_ITS | Encounter Summary ---
Author Organization [facility] Address 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 [address] D.O.B: 1945 SSN: [id number] Parent/Guardian if applicable: Patient Insurance: [employer] Policy#: [id number] Group #: Best To Call : HOME. Best Time to Call : ANYTIME. May We Leave Message At That Number : Reason for referral: colonoscopy PATIENT DIAGNOSIS: . V76.51-SCREEN FOR CA OF COLON ORDERING PHYSICIAN : JESSICA CRAIN MD PRIORITY OF REFERRAL: AT PATIENT'S CONVENIENCE. OFFICE CALCINER FEEDER & PHONE: Cecile Barraza C FOR SCHEDULING [...] ARRANGE PSA LAB ORDERS: today Order number: [id number] Test Ordered: PSA, TOTAL 1002 V76.51-SCREEN FOR CA OF COLON ASSESSMENT: WILL ARRANGE LAB ORDERS: Order number: [id number] Test Ordered: COLONOSCOPY 381.00-OTITIS MEDIA ACUTE NONSUPPURATIVE [...] Dr. Ezequiel Jeffery --- EARS only ph: [phone] fax: [phone]. PREVENTIVE COUNSELING The patient was counseled. RETURN VISIT : Patient instructed to return in 3 months, to 4 months. Electronically Signed by: Jessica Crain MD on Monday, June 04, 2007 documented in this encounter Plan of Treatment Not on file documented as of this encounter Visit Diagnoses Not on filedocumented in this encounter Care Teams Operator Relationship Specialty [place] [address] [address] PCP - General 10/09/05 documented as of this encounter
--- OUTSIDE RECORDS SUMMARY | 2024-11-06 20:16 | XMS_ITS | Continuity of Care Document ---
Author Organization [facility] Address [address] [place] [address] Phone Care Team Providers Care Chest Painting And Sealing Supervisor Name Role Phone Unavailable Unavailable Unavailable Advance Directives Directive Yes / No Effective Date File Name No Information Encounters Encounter Description Practice Location Reason(s) For Visit Diagnoses Date Provider Providers Copied on Encounter [facility], [address], [place], [place], [id number], [place] tel:[phone] [facility] No Information 200 0 No Information Family [...]
--- OUTSIDE RECORDS SUMMARY | 2024-11-06 20:16 | XMS_ITS | Encounter Summary ---
Author Organization [facility] Address 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 fax results to his print producer unless his print producer addresses, he should increase his lipitor to 20 mg daily and repeat lipids and CMP in 3 months denisha 06/02/06 05:44 pm ADDITIONAL TEST REQUESTS/ORDERS: . 272.4-HYPERLIPIDEMIA LAB ORDERS: in 3 months Order number: [id number] Test Ordered: COMPREHENSIVE METABOLIC PANEL & GFR 1099 Order number: [id number] Test Ordered: LIPID PANEL 1078 denisha 06/02/06 [...] on filedocumented in this encounter Care Teams Career Technical Education Instructor Relationship Specialty [place] [address] [address] PCP - General 10/09/05 documented as of this encounter
--- OUTSIDE RECORDS SUMMARY | 2024-11-06 20:16 | XMS_ITS | Encounter Summary ---
Author Organization [facility] Address [address] [place] [address] Care Team Providers Care President Practicing Urologist Name Role Phone Emeka Ibanez MD Primary Care Provider [phone] Encounter Details Date Type Department Care Team (Late st Contact Info) Description 09/03/2005 Outpatient Historical [facility] 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
--- OUTSIDE RECORDS SUMMARY | 2024-11-06 20:16 | XMS_ITS | Encounter Summary ---
Author Organization [employer] Address [address] [place] [address] Care Team Providers Care Autocad Draftsman Name Role Phone Emeka Ibanez MD Primary Care Provider [phone] Encounter Details Date Type Department Care Team (Late st Contact Info) Description 08/14/2005 Outpatient Historical [facility] [place] [address] [address] 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
--- OUTSIDE RECORDS SUMMARY | 2024-11-06 20:16 | XMS_ITS | Encounter Summary ---
Author Organization [facility] Address [address] [place] [address] Care Team Providers Care Spiritual Care Coordinator Name Role Phone Jessica Crain MD Primary Care Provider [phone] Encounter Details Date Type Department Care Team (Late st Contact Info) Description 03/08/2008 Outpatient Historical [facility] ([facility] Heart and Vascular - [facility] [address] [place] [address] [address] [place] [address] Temo Shukla MD NO ADDRESS ON FILE Other Chest Pain Social History Tobacco Use Types Packs/Day Years Used Date Smoking Tobacco: Never Assessed Sex and Gender Information Value Date Recorded Sex Assigned at Not on file 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 [place], [place] [address] Admit Date: 03/08/2008 KAYLEE CUEVA Sex: M Admit Prov: TEMO SHUKLA Date:1945 Primary Care Prov: JESSICA CRAIN CMRN: [id number] [facility] SSN: [id number] IMAGING SERVICES Ordering Prov: N/A Interpretation Date [...] POOL 03/08/2008 15:24 us Temo Shukla MD [place] ORDERABLES Final Result INTERFACE SYSTEM Refer to clinic/hospital department documented in this encounter Visit Diagnoses Diagnosis Other chest pain documented in this encounter Care Teams Spiritual Care Coordinator Relationship Specialty [place] [address] [address] PCP - General 10/09/05 documented as of this encounter
--- OUTSIDE RECORDS SUMMARY | 2024-11-06 20:16 | XMS_ITS | Encounter Summary ---
Author Organization [employer] Address [address] [place] [address] Care Team Providers Care Dial Polisher Name Role Phone Emeka Ibanez MD Primary Care Provider [phone] Encounter Details Date Type Department Care Team (Late st Contact Info) Description 08/14/2005 Outpatient Historical [facility] [place] [address] [address] 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
--- OUTSIDE RECORDS SUMMARY | 2024-11-06 20:16 | XMS_ITS | Encounter Summary ---
Author Organization [facility] Address 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 Gender Identity Not on file Sexual Orientation Not on file documented as of this encounter Progress Notes * Emeka Ibanez MD - 03/16/2008 6:01 PM CDT TIME:05:44 pm PATIENT`S HOME PHONE: PATIENT`S WORK PHONE: PATIENT`S INSURANCE: [employer] PPO WHO TOOK THE CALL: Cecile Barraza C PROBLEMS: documented in this encounter Plan of Treatment Not on file documented as of this encounter Visit Diagnoses Not on filedocumented in this encounter Care Teams Spa Attendant Relationship Specialty Start Date End Date Emeka Ibanez [place] [id number] [place] [address] [address] [place] [address] PCP - General 10/09/05 documented as of this encounter
--- OUTSIDE RECORDS SUMMARY | 2024-11-06 20:16 | XMS_ITS | Encounter Summary ---
Author Organization [facility] Address 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
--- OUTSIDE RECORDS SUMMARY | 2024-11-06 20:16 | XMS_ITS | Encounter Summary ---
Author Organization [facility] Address [address] [place] [address] Care Team Providers Care Saddle Stitch Operator Name Role Phone Emeka Ibanez MD Primary Care Provider [phone] Encounter Details Date Type Department Care Team (Late st Contact Info) Description 10/14/[address] 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
--- OUTSIDE RECORDS SUMMARY | 2024-11-06 20:16 | XMS_ITS | Encounter Summary ---
Author Organization [facility] Address 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
--- OUTSIDE RECORDS SUMMARY | 2024-11-06 20:16 | XMS_ITS | Encounter Summary ---
Author Organization [facility] Address 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
--- OUTSIDE RECORDS SUMMARY | 2024-11-06 20:16 | XMS_ITS | Encounter Summary ---
Author Organization [facility] Address 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
--- OUTSIDE RECORDS SUMMARY | 2024-11-06 20:16 | XMS_ITS | Encounter Summary ---
Author Organization [employer] Address [address] [place] [address] Care Team Providers Care Printmaker Name Role Phone Emeka Ibanez MD Primary Care Provider [phone] Encounter Details Date Type Department Care Team (Late st Contact Info) Description 09/23/2005 Outpatient [facility] [address] [place] [address] Nabil Shukla MD NO ADDRESS ON FILE Social History Tobacco Use Types Packs/Day Years Used Date Smoking Tobacco: Never Assessed Sex and Gender Information Value Date Recorded Sex Assigned at Not on file Legal Sex Male 5:22 AM SUPERVISOR CAB Gender Identity Not on file Sexual Orientation Not on file documented as of this encounter Plan of Treatment Not on file documented as of this encounter Visit Diagnoses Not on filedocumented in this encounter Care Teams Printmaker Relationship Specialty [place] [address] [facility] [address] [place], [place] [phone] PCP - General 10/09/05 documented as of this encounter
--- OUTSIDE RECORDS SUMMARY | 2024-11-06 20:16 | XMS_ITS | Encounter Summary ---
Author Organization [facility] Address [address] [place] [address] Care Team Providers Care Milk Receiver Tank Truck Name Role Phone Emeka Ibanez MD Primary Care Provider [phone] Encounter Details Date Type Department Care Team (Late st Contact Info) Description 09/18/2005 Orders Only [facility] Internal Medicine [address] [phone] [place]banez [place] [id number] [place] [address] Social History Tobacco Use Types Packs/Day Years Used Date Smoking Tobacco: Never Assessed Sex and Gender Information Value Date Recorded Sex Assigned at Not on file Legal Sex Male 5:22 AM PAYMENT SPECIALIST Gender Identity Not on file Sexual Orientation Not on file documented as of this encounter Plan of Treatment Not on file documented as of this encounter Visit Diagnoses Not on filedocumented in this encounter Care Teams Milk Receiver Tank Truck Relationship Specialty Start Date End Date Emeka Ibanez MD [address] [place] [address] [phone] PCP - General 10/09/05 documented as of this encounter
--- OUTSIDE RECORDS SUMMARY | 2024-11-06 20:16 | XMS_ITS | Encounter Summary ---
Author Organization [employer] Address [address] [place] [address] Care Team Providers Care Entry Level Chemist Name Role Phone Emeka Ibanez MD Primary Care Provider [phone] Encounter Details Date Type Department Care Team (Late st Contact Info) Description 10/09/2005 Outpatient Historical [facility] [place] [address] [facility] [place] [address] Nabil Shukla MD NO ADDRESS ON FILE Social History Tobacco Use Types Packs/Day Years Used Date Smoking Tobacco: Never Assessed Sex and Gender Information Value Date Recorded Sex Assigned at Not on file Legal Sex Male 5:22 AM SYSTEMS SUPPORT SPECIALIST Gender Identity Not on file Sexual Orientation Not on file documented as of this encounter Plan of Treatment Not on file documented as of this encounter Visit Diagnoses Not on filedocumented in this encounter Care Teams Entry Level Chemist Relationship Specialty [place] [address] [address] PCP - General 10/09/05 documented as of this encounter
--- OUTSIDE RECORDS SUMMARY | 2024-11-06 20:16 | XMS_ITS | Encounter Summary ---
Author Organization [employer] Address [address] [place] [address] Care Team Providers Care Bottle Carrier Name Role Phone Emeka Ibanez MD Primary Care Provider [phone] Encounter Details Date Type Department Care Team (Latest Contact Info) Description 08/13/2005 Inpatient Historical [facility] IN A BED Nabil Harding MD [address] [place] [address] Coronary Atherosclerosis of [place] Coronary Artery (Primary Dx) Social History Tobacco Use Types Packs/Day Years Used Date Smoking Tobacco: Never Assessed Sex and Gender Information Value Date Recorded Sex Assigned at Not on file Legal Sex Male 5:22 AM SENIOR DIRECTOR FINANCE Gender Identity Not on file Sexual Orientation Not on file documented as of this encounter Plan of Treatment Not on file documented as of this encounter Procedures Procedure Name Priority Date/Time Associated Diagnosis Comments TROPONIN (W/REFLEX CKMB/CK) Routine 08/14/2005 6:10 PM SENIOR DIRECTOR FINANCE PTT Routine 08/14/2005 6:10 PM SENIOR DIRECTOR FINANCE PTT Routine 08/14/2005 4:25 PM SENIOR DIRECTOR FINANCE POC ACTIVATED CLOTTING TIME Routine 08/14/2005 2:19 PM SENIOR DIRECTOR FINANCE POC ACTIVATED CLOTTING TIME Routine 08/14/2005 1:51 PM SENIOR DIRECTOR FINANCE PTT Routine 08/14/2005 11:20 AM SENIOR DIRECTOR FINANCE POC ACTIVATED CLOTTING TIME Routine 08/14/2005 8:57 AM SENIOR DIRECTOR FINANCE LIPID PANEL Routine 08/14/2005 4:32 AM SENIOR DIRECTOR FINANCE PTT Routine 08/14/2005 1:20 AM SENIOR DIRECTOR FINANCE CBC WITH DIFFERENTIAL Routine 08/13/2005 5:25 PM SENIOR DIRECTOR FINANCE CBC WITH DIFFERENTIAL Routine 08/13/2005 5:25 PM SENIOR DIRECTOR FINANCE PTT Routine 08/13/2005 5:25 PM SENIOR DIRECTOR FINANCE PROTIME-INR Routine 08/13/2005 5:25 PM SENIOR DIRECTOR FINANCE COMPREHENSIVE METABOLIC PANEL Routine 08/13/2005 5:25 PM SENIOR DIRECTOR FINANCE documented in this encounter Results * PTT (08/14/2005 6:10 PM SENIOR DIRECTOR FINANCE) PTT 32.1 24.4 - 36.4 Seconds INTERFACE SYSTEM Comment: PTT Therapeutic Range: Heparin Level PTT (seconds) <0.10 units/mL <53 0.10 - 0.30 units/mL 53 - 67 0.30 - 0.70 units/mL* 67 - 95* 0.70 - 1.00 units/mL 95 - 116 *corresponds to therapeutic range for unfractionated heparin 08/14/2005 6:10 PM SENIOR DIRECTOR FINANCE us Nabil Shukla MD HEMATOLOGY ORDERABLES Final Resu lt Performing Organization Address City/[facility] Co de Phone Number INTERFACE SYSTEM Refer to clinic/hospital department * TROPONIN (W/REFLEX CKMB/CK) (08/14/2005 6:10 PM SENIOR DIRECTOR FINANCE) TROPONIN T <0.01 <=0.03 ng/mL INTERFACE SYSTEM TROPONIN T INTERP Negative INTERFACE SYSTEM 08/14/2005 6:10 PM SENIOR DIRECTOR FINANCE us Nabil Shukla MD CHEMISTRY ORDERABLES Final Resul t INTERFACE SYSTEM Refer to clinic/hospital department * (ABNORMAL) PTT (08/14/2005 4:25 PM SENIOR DIRECTOR FINANCE) PTT 66.0(H) 24.4 - 36.4 Seconds INTERFACE SYSTEM Comment: PTT Therapeutic Range: Heparin Level PTT (seconds) <0.10 units/mL <53 0.10 - 0.30 units/mL 53 - 67 0.30 - 0.70 units/mL* 67 - 95* 0.70 - 1.00 units/mL 95 - 116 *corresponds to therapeutic range for unfractionated heparin 08/14/2005 4:25 PM SENIOR DIRECTOR FINANCE Result Ash Harding MD HEMATOLOGY ORDERABLES Final [facility] Performing Organization Address [facility] Phone Number INTERFACE SYSTEM Refer to clinic/hospital department * POC ACTIVATED CLOTTING TIME (08/14/2005 2:19 PM SENIOR DIRECTOR FINANCE) ACT POC 307 Seconds INTERFACE SYSTEM Comment: Normal Donors range 113-149 Non-heparin patients 89-169 ACT value for sheath pull at [facility] has been established to be < or = to 1 70. (See also Nursing Procedures for sheath pull in related nursing areas) 08/14/2005 2:19 PM SENIOR DIRECTOR FINANCE Result Ash Harding MD POINT OF CARE TESTING [facility] Performing Organization Address [facility] Phone Number INTERFACE SYSTEM Refer to clinic/hospital department * POC ACTIVATED CLOTTING TIME (08/14/2005 1:51 PM SENIOR DIRECTOR FINANCE) ACT POC 177 Seconds INTERFACE SYSTEM Comment: Normal Donors range 113-149 Non-heparin patients 89-169 ACT value for sheath pull at [facility] has been established to be < or = to 1 70. (See also Nursing Procedures for sheath pull in related nursing areas) 08/14/2005 1:51 PM SENIOR DIRECTOR FINANCE Result Ash Harding MD POINT OF CARE TESTING Final [facility] Performing Organization Address [facility] de Phone Number INTERFACE SYSTEM Refer to clinic/hospital department * (ABNORMAL) PTT (08/14/2005 11:20 AM SENIOR DIRECTOR FINANCE) PTT 38.7(H) 24.4 - 36.4 Seconds INTERFACE SYSTEM Comment: PTT Therapeutic Range: Heparin Level PTT (seconds) <0.10 units/mL <53 0.10 - 0.30 units/mL 53 - 67 0.30 - 0.70 units/mL* 67 - 95* 0.70 - 1.00 units/mL 95 - 116 *corresponds to therapeutic range for unfractionated heparin 08/14/2005 11:2 0 AM SENIOR DIRECTOR FINANCE us Nabil Harding MD HEMATOLOGY ORDERABLES Final Resu Performing Organization Address [facility] Phone Number INTERFACE SYSTEM Refer to clinic/hospital department * POC ACTIVATED CLOTTING TIME (08/14/2005 8:57 AM SENIOR DIRECTOR FINANCE) [facility] ACT POC 307 Seconds INTERFACE SYSTEM Comment: Normal Donors range 113-149 Non-heparin patients 89-169 ACT value for sheath pull at [facility] has been established to be < or = to 1 70. (See also Nursing Procedures for sheath pull in related nursing areas) 08/14/2005 8:57 AM SENIOR DIRECTOR FINANCE us Nabil Harding MD POINT OF CARE TESTING [facility] Per[facility] Organization Address [facility] Phone Number INTERFACE SYSTEM Refer to clinic/hospital department * (ABNORMAL) LIPID PANEL (08/14/2005 4:32 AM SENIOR DIRECTOR FINANCE) Pathologist [facility] LIPID PANEL COMMENT See below INTERFACE SYSTEM [...] section for risk classifications. 08/14/2005 4:32 AM SENIOR DIRECTOR FINANCE Nabil Harding MD CHEMISTRY ORDERABLES Final Resul t Performing Organization Address [facility] Phone Number INTERFACE SYSTEM Refer to clinic/hospital department * (ABNORMAL) PTT (08/14/2005 1:20 AM SENIOR DIRECTOR FINANCE) PTT 45.6(H) 24.4 - 36.4 Seconds INTERFACE SYSTEM Comment: PTT Therapeutic Range: Heparin Level PTT (seconds) <0.10 units/mL <53 0.10 - 0.30 units/mL 53 - 67 0.30 - 0.70 units/mL* 67 - 95* 0.70 - 1.00 units/mL 95 - 116 *corresponds to therapeutic range for unfractionated heparin 08/14/2005 1:20 AM SENIOR DIRECTOR FINANCE Nabil Harding MD HEMATOLOGY ORDERABLES Final Resu lt Performing Organization Address [facility] Phone Number INTERFACE SYSTEM Refer to clinic/hospital department * CBC WITH DIFFERENTIAL (08/13/2005 5:25 PM SENIOR DIRECTOR FINANCE) NEUTROPHILS 68 45 - 70 % INTERFAC [...] 0.20 K/uL INTERFACE SYSTEM 08/13/2005 5:25 PM SENIOR DIRECTOR FINANCE Nabil Harding MD HEMATOLOGY ORDERABLES Final [facility] Performing Organization Address [facility] de Phone Number INTERFACE SYSTEM Refer to clinic/hospital department * CBC WITH DIFFERENTIAL (08/13/2005 5:25 PM SENIOR DIRECTOR FINANCE) WBC 5.2 4.0 - 9.8 K/uL INTERFACE [...] 12.4 fL INTERFACE SYSTEM 08/13/2005 5:25 PM SENIOR DIRECTOR FINANCE Nabil Harding MD HEMATOLOGY ORDERABLES Final [facility] Per[facility] Organization Address [facility] Phone Number INTERFACE SYSTEM Refer to clinic/hospital department * (ABNORMAL) COMPREHENSIVE METABOLIC PANEL (08/13/2005 5:25 PM SENIOR DIRECTOR FINANCE) GLUCOSE 150(H) 65 - 109 mg/dL INTERFACE [...] 30 mmol/L INTERFACE SYSTEM 08/13/2005 5:25 PM SENIOR DIRECTOR FINANCE Nabil Harding MD CHEMISTRY ORDERABLES Final Resul t Performing Organization Address City/[facility] de Phone Number INTERFACE SYSTEM Refer to clinic/hospital department * PTT (08/13/2005 5:25 PM SENIOR DIRECTOR FINANCE) PTT 27.3 24.4 - 36.4 Seconds INTERFACE SYSTEM Comment: PTT Therapeutic Range: Heparin Level PTT (seconds) <0.10 units/mL <53 0.10 - 0.30 units/mL 53 - 67 0.30 - 0.70 units/mL* 67 - 95* 0.70 - 1.00 units/mL 95 - 116 *corresponds to therapeutic range for unfractionated heparin 08/13/2005 5:25 PM SENIOR DIRECTOR FINANCE Nabil Harding MD HEMATOLOGY ORDERABLES Final Resu lt Performing Organization Address [facility] Phone Number INTERFACE SYSTEM Refer to clinic/hospital department * PROTIME-INR (08/13/2005 5:25 PM SENIOR DIRECTOR FINANCE) PROTIME 13.9 12.7 - 15.1 Seconds INTERFACE SYSTEM INR 1.0 0.9 - 1.1 INTERFACE SYSTEM Comment: INR Therapeutic Range: Adult: 2.0 - 3.0 for pulmonary embolism or prophylaxis against venous thrombosis or systemic embolization. 2.0 - 3.0 for patients with tissue heart valves. 2.5 - 3.5 for patients with mechanical heart valves or post [place]. Pediatric (12 years and under): 1.5 - 3.0 Although the target range in children is not well established , INR values of 1.5 - 3.0 are recommended for most patients. Higher values have been used in children with prosthetic cardiac valves and hereditary clotting disorders. (<3 days) therapeutic ranges have not been established. 08/13/2005 5:25 PM SENIOR DIRECTOR FINANCE us Nabil Harding MD HEMATOLOGY ORDERABLES Final Resu lt INTERFACE SYSTEM Refer to clinic/hospital department documented in this encounter Visit Diagnoses Diagnosis Coronary atherosclerosis of [place] coronary artery- Primary documented in this encounter Care Teams Bottle Carrier Relationship Specialty Start [place] [address] [address] PCP - General 10/09/05 documented as of this encounter
--- OUTSIDE RECORDS SUMMARY | 2024-11-06 20:16 | XMS_ITS | Encounter Summary ---
Author Organization [facility] Address [address] [place] [address] Care Team Providers Care Oven Operator Automatic Name Role Phone Emeka Ibanez MD Primary Care Provider [phone] Encounter Details Date Type Department Care Team (Late st Contact Info) Description 05/12/2005 Outpatient Historical [facility] Internal Medicine [address] [address] Emeka Ibanez MD [address] [place] [address] [phone] Social History Tobacco Use Types Packs/Day Years Used Date Smoking Tobacco: Never Assessed Sex and Gender Information Value Date Recorded Sex Assigned at Not on file Legal Sex Male 5:22 AM PATTERN GATER Gender Identity Not on file Sexual Orientation Not on file documented as of this encounter Last Filed Vital Signs Vital Sign Reading Time Taken Comments Blood Pressure 150/80 05/12/2005 3:45 PM PATTERN GATER Pulse - - Temperature - - Respiratory Rate - - Oxygen Saturation - - Inhaled Oxygen Concentration - - Weight 88.9 kg (196 lb) 05/12/2005 3:45 PM PATTERN GATER Height - - Body Mass Index - - documented in this encounter Plan of Treatment Not on file documented as of this encounter Visit Diagnoses Not on filedocumented in this encounter Care Teams Oven Operator Automatic Relationship Specialty Start Date End Date Emeka Ibanez MD [address] [place] [address] [phone] PCP - General 10/09/05 documented as of this encounter
--- OUTSIDE RECORDS SUMMARY | 2024-11-06 20:16 | XMS_ITS | Encounter Summary ---
Author Organization [employer] Address [address] [place] [address] Care Team Providers Care Bending Machine Operator Name Role Phone Emeka Ibanez MD Primary Care Provider [phone] Encounter Details Date Type Department Care Team (Latest Contact Info) Description 09/02/2005 Inpatient Historical [facility] Heena Cosme Alexis J, DO Essential Hypertension, Malignant (Primary Dx) Social History Tobacco Use Types Packs/Day Years Used Date Smoking Tobacco: Never Assessed Sex and Gender Information Value Date Recorded Sex Assigned at Not on file Legal Sex Male 5:22 AM SENIOR PROGRAMMER Gender Identity Not on file Sexual Orientation Not on file documented as of this encounter Plan of Treatment Not on file documented as of this encounter Procedures Procedure Name Priority Date/Time Associated Diagnosis Comments TROPONIN (W/REFLEX CKMB/CK) Routine 09/02/2005 11:10 PM SENIOR PROGRAMMER POTASSIUM LEVEL Routine 09/02/2005 11:10 PM SENIOR PROGRAMMER TROPONIN (W/REFLEX CKMB/CK) Routine 09/02/2005 4:39 PM SENIOR PROGRAMMER CBC WITH DIFFERENTIAL Routine 09/02/2005 4:39 PM SENIOR PROGRAMMER CBC WITH DIFFERENTIAL Routine 09/02/2005 4:39 PM SENIOR PROGRAMMER documented in this encounter Results * POTASSIUM LEVEL (09/02/2005 11:10 PM SENIOR PROGRAMMER) POTASSIUM 3.5 3.5 - 4.9 mmol/L INTERFACE SYSTEM Comment:Significant change f rom prior result, correlate clinically and redraw if necessary. 09/02/2005 11:1 0 PM SENIOR PROGRAMMER Jai Meraz MD CHEMISTRY ORDERABLES Final R esult Performing Organization Address [facility] Co de Phone Number INTERFACE SYSTEM Refer to clinic/hospital department * TROPONIN (W/REFLEX CKMB/CK) (09/02/2005 11:10 PM SENIOR PROGRAMMER) TROPONIN T 0.01 <=0.03 ng/mL INTERFACE SYSTEM Comment:performed on E170 TROPONIN T INTERP Negative INTERFACE SYSTEM 09/02/2005 11:1 0 PM SENIOR PROGRAMMER Jai Meraz MD CHEMISTRY ORDERABLES Final R esult Performing Organization Address [facility] de Phone Number INTERFACE SYSTEM Refer to clinic/hospital department * TROPONIN (W/REFLEX CKMB/CK) (09/02/2005 4:39 PM SENIOR PROGRAMMER) TROPONIN T <0.01 <=0.03 ng/mL INTERFACE SYSTEM TROPONIN T INTERP Negative INTERFACE SYSTEM 09/02/2005 4:39 PM SENIOR PROGRAMMER [facility] Provider CHEMISTRY ORDERABLES Final R esult Performing Organization Address [facility] Co de Phone Number INTERFACE SYSTEM Refer to clinic/hospital department * CBC WITH DIFFERENTIAL (09/02/2005 4:39 PM SENIOR PROGRAMMER) NEUTROPHILS 61 45 - 70 % INTERFAC [...] 0.20 K/uL INTERFACE SYSTEM 09/02/2005 4:39 PM SENIOR PROGRAMMER Historical Provider HEMATOLOGY ORDERABLES Final Result Performing Organization Address [facility] Phone Number INTERFACE SYSTEM Refer to clinic/hospital department * CBC WITH DIFFERENTIAL (09/02/2005 4:39 PM SENIOR PROGRAMMER) WBC 4.4 4.0 - 9.8 K/uL INTERFACE [...] 12.4 fL INTERFACE SYSTEM 09/02/2005 4:39 PM SENIOR PROGRAMMER [facility] Provider HEMATOLOGY ORDERABLES Final Result Performing Organization Address [facility] Phone Number INTERFACE SYSTEM Refer to clinic/hospital department documented in this encounter Visit Diagnoses Diagnosis Essential hypertension, malignant- Primary documented in this encounter Care Teams Bending Machine Operator Relationship Specialty Start [place] [address] [address] PCP - General 10/09/05 documented as of this encounter
--- OUTSIDE RECORDS SUMMARY | 2024-11-06 20:16 | XMS_ITS | Encounter Summary ---
Author Organization [employer] [facility] Address [address] [place] [address] Care Team Providers Care Rn Transfer Name Role Phone Emeka Ibanez MD Primary Care Provider [phone] Encounter Details Date Type Department Care Team (Late st Contact Info) Description 09/02/2005 Outpatient Historical [facility] Support Serv. (Adt Cardiology-[facility]) [address] [facility] [place] [address] Heather Diaz MD Social History Tobacco Use Types Packs/Day Years Used Date Smoking Tobacco: Never Assessed Sex and Gender Information Value Date Recorded Sex Assigned at Not on file Legal Sex Male 5:22 AM BIOMETRICIAN Gender Identity Not on file Sexual Orientation Not on file documented as of this encounter Plan of Treatment Not on file documented as of this encounter Visit Diagnoses Not on filedocumented in this encounter Care Teams Rn Transfer Relationship Specialty Start [place] [address] [address] PCP - General 10/09/05 documented as of this encounter
--- OUTSIDE RECORDS SUMMARY | 2024-11-06 20:16 | XMS_ITS | Encounter Summary ---
Author Organization [facility] Address [address] [place] [address] Care Team Providers Care Casey Saw Operator Name Role Phone Emeka Ibanez MD Primary Care Provider [phone] Encounter Details Date Type Department Care Team (Late st Contact Info) Description 09/16/2004 Outpatient Historical [facility] Internal Medicine [address] [address] Emeka Ibanez [place] [phone] [place] [address] [phone] Social History Tobacco Use Types Packs/Day Years Used Date Smoking Tobacco: Never Assessed Sex and Gender Information Value Date Recorded Sex Assigned at Not on file Legal Sex Male 5:22 AM BEAN VINER Gender Identity Not on file Sexual Orientation [...] on filedocumented in this encounter Care Teams Casey Saw Operator Relationship Specialty Start Date End Date Emeka Ibanez [place] [address] [place] [address] [address] [place], [place] [phone] PCP - General 10/09/05 documented as of this encounter
--- OUTSIDE RECORDS SUMMARY | 2024-11-06 20:16 | XMS_ITS | Encounter Summary ---
Author Organization [facility] Address [address] [place] [address] Care Team Providers Care Unemployment Inspector Name Role Phone Emeka Ibanez MD Primary Care Provider [phone] Encounter Details Date Type Department Care Team (Late st Contact Info) Description 08/12/2005 Outpatient Historical [facility] Internal Medicine [address] [phone] Mitch Brower MD [address] [place] [phone] Social History Tobacco Use Types Packs/Day Years Used Date Smoking Tobacco: Never Assessed Sex and Gender Information Value Date Recorded Sex Assigned at Not on file Legal Sex Male 5:22 AM PACKAGING ENGINEER Gender Identity Not on file Sexual Orientation Not on file documented as of this encounter Plan of Treatment Not on file documented as of this encounter Visit Diagnoses Not on filedocumented in this encounter Care Teams Unemployment Inspector Relationship Specialty Start Date End Date Emeka Ibanez MD [address] [place] [address] [id number] PCP - General 10/09/05 documented as of this encounter
--- OUTSIDE RECORDS SUMMARY | 2024-11-06 20:16 | XMS_ITS | Encounter Summary ---
Author Organization [facility] Address [address] [place] [address] Care Team Providers Care Category Development Manager Name Role Phone Emeka Ibanez MD Primary Care Provider [phone] Encounter Details Date Type Department Care Team (Late st Contact Info) Description 08/14/2005 Outpatient Historical [facility] [address] [place] [address] Nabil Harding MD [address] [place] [address] Social History Tobacco Use Types Packs/Day Years Used Date Smoking Tobacco: Never Assessed Sex and Gender Information Value Date Recorded Sex Assigned at Not on file Legal Sex Male 5:22 AM HIGHER EDUCATION ADMINISTRATOR Gender Identity Not on file Sexual Orientation Not on file documented as of this encounter Plan of Treatment Not on file documented as of this encounter Visit Diagnoses Not on filedocumented in this encounter Care Teams Category Development Manager Relationship Specialty Start [place] [address] [address] PCP - General 10/09/05 documented as of this encounter
--- OUTSIDE RECORDS SUMMARY | 2024-11-06 20:16 | XMS_ITS | Encounter Summary ---
Author Organization [facility] Address [address] [place] [address] Care Team Providers Care Veneer Department Manager Name Role Phone Jessica Crain MD Primary Care Provider [phone] Encounter Details Date Type Department Care Team (Late st Contact Info) Description 06/09/2007 Orders Only [facility] Internal Medicine [address] [address] [place] [address] [address] Social History Tobacco Use Types Packs/Day Years Used Date Smoking Tobacco: Never Assessed Sex and Gender Information Value Date Recorded Sex Assigned at Not on file Legal Sex Male 5:22 AM FULL DECATOR OPERATOR Gender Identity Not on file Sexual Orientation Not on file documented as of this encounter Progress Notes * Jessica Crain MD - 10/20/2007 4:26 PM CDT [facility] JESSICA CRAIN MD [address] [place] [address] June 09, 2007 KAYLEE CUEVA [address] [place] [address] Dear Kaylee: Please find enclosed your recent test results along with an explanation. Your recent prostate cancer screening blood test (PSA) is normal. Will continue to monitor yearly. Sincerely yours, JESSICA CRAIN MD documented in this encounter Plan of Treatment Not on file documented as of this encounter Visit Diagnoses Not on filedocumented in this encounter Care Teams Veneer Department Manager Relationship Specialty [place] [address] [place] [address] PCP - General 10/09/05 documented as of this encounter
--- OUTSIDE RECORDS SUMMARY | 2024-11-06 20:16 | XMS_ITS | Encounter Summary ---
Author Organization [facility] Address [address] [place] [address] Care Team Providers Care Carton Folder Name Role Phone Emeka Ibanez MD Primary Care Provider [phone] Reason for Visit * Reason Comments Question Encounter Details Date Type Department Care Team (Late st Contact Info) Description 09/07/2024 Telephone [facility] Internal Medicine [address] [phone] [place] [phone] [place] [address] [address] [place] [address] Question Social History Tobacco Use [...] on file Legal Sex Male 5:22 AM ASSOCIATE ACCOUNT MANAGER Gender Identity Not on file Sexual [...] - 09/07/2024 11:34 AM CDT Copied from [facility] #[id number]. Topic: Patient or Caregiver Communication Request >> Sep 07, 2024 11:28 AM Mario Alberto Garcia wrote: Patient or Caregiver requesting that a message be sent to Care Team Caller: Kermit Noe Patient/Caregiver Callback Number: [phone] Call Notes: Patient received a call (11.33am) and is requesting a callback regarding his video visit. documented in this encounter Plan of Treatment Not on file documented as of this encounter Visit Diagnoses Not on filedocumented in this encounter Care Teams Carton Folder Relationship Specialty [place] [address] [place] [address] PCP - General 10/09/05 documented as of this encounter
--- OUTSIDE RECORDS SUMMARY | 2024-11-06 20:16 | XMS_ITS | Encounter Summary ---
Author Organization [email or web address] Address [address] [place] [address] Care Team Providers Care Iridologist Name Role Phone Emeka Ibanez MD Primary Care Provider [phone] Encounter Details Date Type Department Care Team (Late st Contact Info) Description 09/03/2005 Outpatient Historical [facility] Support Serv. (Adt Cardiology-[facility]) [address] [place] [address] Flash Mcclendon MD NO ADDRESS ON FILE Social History Tobacco Use Types Packs/Day Years Used Date Smoking Tobacco: Never Assessed Sex and Gender Information Value Date Recorded Sex Assigned at Not on file Legal Sex Male 5:22 AM PALM GATHERER Gender Identity Not on file Sexual Orientation Not on file documented as of this encounter Plan of Treatment Not on file documented as of this encounter Visit Diagnoses Not on filedocumented in this encounter Care Teams Iridologist Relationship Specialty [place] [address] [address] PCP - General 10/09/05 documented as of this encounter
--- OUTSIDE RECORDS SUMMARY | 2024-11-06 20:16 | XMS_ITS | Encounter Summary ---
Author Organization [facility] Address 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
--- OUTSIDE RECORDS SUMMARY | 2024-11-06 20:16 | XMS_ITS | Encounter Summary ---
Author Organization [facility] Address [address] [place] [address] Care Team Providers Care Box Annealer Name Role Phone Emeka Ibanez MD Primary Care Provider [phone] Encounter Details Date Type Department Care Team (Late st Contact Info) Description 06/04/2007 Outpatient [facility] Internal Medicine [address] [phone] Emeka Ibanez [place] [phone] [place] [address] Social History Tobacco Use Types Packs/Day Years Used Date Smoking Tobacco: Never Assessed Sex and Gender Information Value Date Recorded Sex Assigned at Not on file Legal Sex Male 5:22 AM COMPLAINT ADJUSTER Gender Identity Not on file Sexual Orientation Not on file documented as of this encounter Plan of Treatment Not on file documented as of this encounter Visit Diagnoses Not on filedocumented in this encounter Care Teams Box Annealer Relationship Specialty Start Date End Date Emeka Ibanez MD [address] [place] [address] [phone] PCP - General 10/09/05 documented as of this encounter
--- OUTSIDE RECORDS SUMMARY | 2024-11-06 20:16 | XMS_ITS | Encounter Summary ---
Author Organization [facility] Address 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
--- OUTSIDE RECORDS SUMMARY | 2024-11-06 20:16 | XMS_ITS | Clinical Summary ---
Author Organization [facility] Address [address] [place] [address] Care Team Providers Care Sed High School Teacher Name Role Phone Emeka Ibanez MD Primary Care Provider [phone] Allergies Active Allergy Reactions Criticality Noted Date [...] 0.4 mg Tablet, SublingualIndications:S table angina,Atherosclerosis of [place] coronary artery of [place] heart without angina pectoris PLACE 1 TABLET [...] from the original. ANNUAL MEDICARE EXAM 03/27/21 [id number] -- 03/14/24 CARDIO->DR MORENO GI->DR ALCON FOX [...] MM POLYP->NEXT 05/2015 CSCOPE->POLYP->NEXT 07/31 Atherosclerosis of [place] co ronary artery of [place] heart with stable angina pectoris 04/04/2009 Overview (07/16/2012): 08/11-ACUTE INFERIOR WA->S/P PTCA RCA 02/13 CARDIO (ANIKET) OV->REC CONTINUE [...] 0.29 Pure hypercholesterolemia 10/03/2007 Overview (2021): 02/12 [id number] (ON LIPITOR) 2007 STOPPED LIPITOR ON OWN DUE TO COSTS 06/16 [id number] ->STARTED SIMVASTATIN 40 MG/DAY 03/16 [id number] ->ADDED FENOFIBRATE 160 MG/DAY 06/20 LIPITOR 40 MG STARTED / ZOCOR STOPPED 02/22 [id number]->ON HIGH DOSE STATIN WITH FENOFIBRATE 02/23 [id number] 08/24 FENOFIBRATE STOPPED 03/27 [id number] 03/28 [id number] Old myocardial infarction 04/08/2006 Overview (01/02/2010): 08/11-ACUTE [...] SUSPECTS CO POISONING DUE TO LEAKING MUFFLER [facility] care 05/27/2008 Overview (05/27/2008): DAILY ASPRIN RECOMMENDED YEARLY FLU VAX RECOMMENDED Obesity 05/27/2008 03/16/2020 Overview (05/27/2008): INSTRUCTED IN LOW FAT DIET/DAILY EXERCISE Screening for other and unsp ecified deficiency anemia 05/26/2008 01/02/2010 Overview (06/23/2008): 06/16 CBC NL Encounters Date Type Department Care Team Description 10/25/2024 External Device Data [facility] ABSTRACTION Provider, Abstract 10/25/[address] [place] [address] Emeka Ibanez MD Primary osteoarthritis involving multiple joints 09/30/[address] [place] [phone] Emeka Ibanez MD Primary osteoarthritis involving multiple joints 09/07/2024 11:00 AM CDT Video Visit [address] [place] [address] Emeka Ibanez MD Benign hypertension with CKD [...] episode, mild; Old myocardial infarction 09/07/2024 Telephone [facility] [phone] [facility] [address] [place] [address] Emeka Ibanez MD Question 09/02/2024 [facility] [phone] [facility] [address] [place] [address] Emeka Ibanez MD Primary osteoarthritis involving multiple [...] on file Legal Sex Male 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 Gender Identity Not on file Sexual Orientation [...] 02/28/2015, 07/03/2010 Medical Devices Implanted Type Area It Architect Device Identifier Shelf Expiration Date Model / Serial / Lot Mesh [facility]6 - [id number] Implanted:Qty : 1 on 02/18/2016 by Clara dRz MD at [facility] Mesh Right: Inguinal [employer] [id number] 03/07/2017 [facility]6 / / [id number] Valve Aortic Magna Ease 21mm [id number] - [id number] Implanted:Qty : 1 on 07/11/2015 by Yannick Alvarez MD at [facility] Valve N/A: Aorta [employer] 03/21/2019 [id number] / [id number] / Sut Endo Tfe [facility]40 - [id number] Implanted:Qty : 4 on 07/11/2015 by Yannick Alvarez MD at [facility] N/A: Heart [employer] 03/07/2020 [facility] / / [id number] Insurance Advance Directives For more information, please contact: [phone] * Full Code (Latest Code Status on [...] 5:34 AM 02/18/2016 8:43 AM Care Teams Sed High School Teacher Relationship Specialty [place] [address] [address] PCP - General 10/09/05
--- OUTSIDE RECORDS SUMMARY | 2024-11-06 20:16 | XMS_ITS | Encounter Summary ---
Author Organization [facility] Address [address] [place] [address] Care Team Providers Care Rn Occupational Health Name Role Phone Emeka Ibanez MD Primary Care Provider [phone] Encounter Details Date Type Department Care Team (Late st Contact Info) Description 09/03/2005 Outpatient Historical [facility] [address] [phone] Heena Cosem Social History Tobacco Use Types Packs/Day Years Used Date Smoking Tobacco: Never Assessed Sex and Gender Information Value Date Recorded Sex Assigned at Not on file Legal Sex Male 5:22 AM ENGINEERING OPERATIONS LEADER Gender Identity Not on file Sexual Orientation Not on file documented as of this encounter Plan of Treatment Not on file documented as of this encounter Visit Diagnoses Not on filedocumented in this encounter Care Teams Rn Occupational Health Relationship Specialty Start [place] [address] [phone] PCP - General 10/09/05 documented as of this encounter
--- OUTSIDE RECORDS SUMMARY | 2024-11-06 20:16 | XMS_ITS | Encounter Summary ---
Author Organization [facility] Address 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
--- OUTSIDE RECORDS SUMMARY | 2024-11-06 20:16 | XMS_ITS | Encounter Summary ---
Author Organization [facility] Address [address] [place] [address] Care Team Providers Care Automobile Body Repair Chief Name Role Phone Emeka Ibanez MD Primary Care Provider [phone] Encounter Details Date Type Department Care Team (Late st Contact Info) Description 03/25/2006 Outpatient Historical [facility] Internal Medicine [address] [address] Emeka Ibanez MD [address] [place] [address] Social History Tobacco Use Types Packs/Day Years Used Date Smoking Tobacco: Never Assessed Sex and Gender Information Value Date Recorded Sex Assigned at Not on file Legal Sex Male 5:22 AM TABLET REPAIR Gender Identity Not on file Sexual Orientation [...] on filedocumented in this encounter Care Teams Automobile Body Repair Chief Relationship Specialty Start Date End Date Emeka Ibanez [place] [id number] [place] [address] PCP - General 10/09/05 documented as of this encounter
--- OUTSIDE RECORDS SUMMARY | 2024-11-06 20:16 | XMS_ITS | Encounter Summary ---
Author Organization [facility] Address 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 RETURN VISIT : Patient is to return on an as needed basis. Electronically Signed by: Emeka Ibanez MD on Thursday, July 19, 2007 documented in this encounter Plan of Treatment Not on file documented as of this encounter Visit Diagnoses Not on filedocumented in this encounter Care Teams Concession Supervisor Relationship Specialty Start [place] [address] [address] PCP - General 10/09/05 documented as of this encounter
--- OUTSIDE RECORDS SUMMARY | 2024-11-06 20:16 | XMS_ITS | Encounter Summary ---
Author Organization [facility] Address [address] [place] [address] Care Team Providers Care Engineering Faculty Member Name Role Phone Emeka Ibanez MD Primary Care Provider [phone] Encounter Details Date Type Department Care Team (Late st Contact Info) Description 05/29/2006 Outpatient [facility] Internal Medicine [address] [address] Emeka Ibanez MD [address] [place] [address] [phone] Social History Tobacco Use Types Packs/Day Years Used Date Smoking Tobacco: Never Assessed Sex and Gender Information Value Date Recorded Sex Assigned at Not on file Legal Sex Male 5:22 AM LEAD TECHNOLOGIST IN CYTOGENETICS Gender Identity Not on file Sexual Orientation Not on file documented as of this encounter Last Filed Vital Signs Vital Sign Reading Time Taken Comments Blood Pressure 130/80 05/29/2006 9:15 AM LEAD TECHNOLOGIST IN CYTOGENETICS Pulse - - Temperature - - Respiratory Rate - - Oxygen Saturation - - Inhaled Oxygen Concentration - - Weight 90.7 kg (200 lb) 05/29/2006 9:15 AM LEAD TECHNOLOGIST IN CYTOGENETICS Height - - Body Mass Index - - documented in this encounter Plan of Treatment Not on file documented as of this encounter Visit Diagnoses Not on filedocumented in this encounter Care Teams Engineering Faculty Member Relationship Specialty Start Date End Date Emeka Ibanez [place] [id number] [place] [id number] PCP - General 10/09/05 documented as of this encounter
--- OUTSIDE RECORDS SUMMARY | 2024-11-06 20:16 | XMS_ITS | Encounter Summary ---
Author Organization [facility] Address [address] [place] [address] Care Team Providers Care Molder Foam Rubber Name Role Phone Emeka Ibanez MD Primary Care Provider [phone] Encounter Details Date Type Department Care Team (Late st Contact Info) Description 08/14/2005 Outpatient Historical [facility] Support Serv. (Adt Cardiology-[facility]) [address] [place] [address] Nabil Harding MD [address] [facility] [address] [place] [address] Social History Tobacco Use Types Packs/Day Years Used Date Smoking Tobacco: Never Assessed Sex and Gender Information Value Date Recorded Sex Assigned at Not on file Legal Sex Male 5:22 AM SCUBA DIVER Gender Identity Not on file Sexual Orientation Not on file documented as of this encounter Plan of Treatment Not on file documented as of this encounter Visit Diagnoses Not on filedocumented in this encounter Care Teams Molder Foam Rubber Relationship Specialty [place] [address] [facility] [address] [place] [address] PCP - General 10/09/05 documented as of this encounter
--- OUTSIDE RECORDS SUMMARY | 2024-11-06 20:16 | XMS_ITS | Encounter Summary ---
Author Organization [facility] Address [address] [place] [address] Care Team Providers Care Staff Sonographer Name Role Phone Emeka Ibanez MD Primary Care Provider [phone] Encounter Details Date Type Department Care Team (Late st Contact Info) Description 05/19/2007 Outpatient [facility] Heart Group [address] [place] [address] Nabil Shukla MD NO ADDRESS ON FILE Social History Tobacco Use Types Packs/Day Years Used Date Smoking Tobacco: Never Assessed Sex and Gender Information Value Date Recorded Sex Assigned at Not on file Legal Sex Male 5:22 AM QUALITY CONTROL SYSTEMS MANAGER Gender Identity Not on file Sexual Orientation Not on file documented as of this encounter Plan of Treatment Not on file documented as of this encounter Visit Diagnoses Not on filedocumented in this encounter Care Teams Staff Sonographer Relationship Specialty Start [place] [address] [facility] [address] [place], [place] [phone] PCP - General 10/09/05 documented as of this encounter
--- OUTSIDE RECORDS SUMMARY | 2024-11-06 20:16 | XMS_ITS | Encounter Summary ---
Author Organization [facility] Address [address] [place] [address] Care Team Providers Care Gynecologist Name Role Phone Emeka Ibanez MD Primary Care Provider [phone] Encounter Details Date Type Department Care Team (Late st Contact Info) Description 07/19/2007 Outpatient [facility] Internal Medicine [address] [phone] Emeka Ibanez MD [address] [place] [address] Social History Tobacco Use Types Packs/Day Years Used Date Smoking Tobacco: Never Assessed Sex and Gender Information Value Date Recorded Sex Assigned at Not on file Legal Sex Male 5:22 AM NEWSPAPER MANAGING EDITOR Gender Identity Not on file Sexual Orientation Not on file documented as of this encounter Plan of Treatment Not on file documented as of this encounter Visit Diagnoses Not on filedocumented in this encounter Care Teams Gynecologist Relationship Specialty Start Date End Date Emeka Ibanez MD [address] [place] [address] [id number] PCP - General 10/09/05 documented as of this encounter
--- OUTSIDE RECORDS SUMMARY | 2024-11-06 20:16 | XMS_ITS | Encounter Summary ---
Author Organization [facility] Address [address] [place] [address] Care Team Providers Care Belt Maker Helper Name Role Phone Emeka Ibanez MD Primary Care Provider [phone] Encounter Details Date Type Department Care Team (Late st Contact Info) Description 07/19/2004 Outpatient Historical [facility] Internal Medicine [address] [address] Emeka Iabnez [place] [id number] [place] [address] Social History Tobacco Use Types Packs/Day Years Used Date Smoking Tobacco: Never Assessed Sex and Gender Information Value Date Recorded Sex Assigned at Not on file Legal Sex Male 5:22 AM MANAGEMENT TECHNICIAN Gender Identity Not on file Sexual Orientation Not on file documented as of this encounter Last Filed Vital Signs Vital Sign Reading Time Taken Comments Blood Pressure 160/80 07/19/2004 10:00 AM MANAGEMENT TECHNICIAN Pulse - - Temperature 38 C (100.4 F) 07/19/2004 10:00 AM MANAGEMENT TECHNICIAN Respiratory Rate - - Oxygen Saturation - - Inhaled Oxygen Concentration - - Weight 90.3 kg (199 lb) 07/19/2004 10:00 AM MANAGEMENT TECHNICIAN Height - - Body Mass Index - - documented in this encounter Plan of Treatment Not on file documented as of this encounter Visit Diagnoses Not on filedocumented in this encounter Care Teams Belt Maker Helper Relationship Specialty Start Date End Date Emeka Ibanez [place] [id number] [place] [address] PCP - General 10/09/05 documented as of this encounter
--- OUTSIDE RECORDS SUMMARY | 2024-11-06 20:16 | XMS_ITS | Encounter Summary ---
Author Organization [employer] Address [address] [place] [address] Care Team Providers Care Entry Level Software Developer Name Role Phone Emeka Ibanez MD Primary Care Provider [phone] Encounter Details Date Type Department Care Team (Latest Contact Info) Description 07/06/2006 Inpatient Historical [facility] PATIENT IN A BED Nabil Shukla MD NO ADDRESS ON FILE Unspecified Transient Cerebral Ischemia (Primary Dx) Social History Tobacco Use Types Packs/Day Years Used Date Smoking Tobacco: Never Assessed Sex and Gender Information Value Date Recorded Sex Assigned at Not on file Legal Sex Male 5:22 AM PORCELAIN BUILDUP ASSISTANT Gender Identity Not on file Sexual Orientation Not on file documented as of this encounter Plan of Treatment Not on file documented as of this encounter Procedures Procedure Name Priority Date/Time Associated Diagnosis Comments CBC WITH DIFFERENTIAL Routine 07/06/2006 8:51 PM PORCELAIN BUILDUP ASSISTANT CBC WITH DIFFERENTIAL Routine 07/06/2006 8:51 PM PORCELAIN BUILDUP ASSISTANT PROTIME-INR Routine 07/06/2006 8:51 PM PORCELAIN BUILDUP ASSISTANT C-REACTIVE PROTEIN Routine 07/06/2006 8: 51 PM PORCELAIN BUILDUP ASSISTANT BASIC METABOLIC PANEL Routine 07/06/2006 8:51 PM PORCELAIN BUILDUP ASSISTANT documented in this encounter Results * CBC WITH DIFFERENTIAL (07/06/2006 8:51 PM PORCELAIN BUILDUP ASSISTANT) NEUTROPHILS 66 45 - 70 % INTERFAC [...] 0.20 K/uL INTERFACE SYSTEM 07/06/2006 8:51 PM PORCELAIN BUILDUP ASSISTANT Nabil Shukla MD HEMATOLOGY ORDERABLES Edited INTERFACE SYSTEM Refer to clinic/hospital department * (ABNORMAL) CBC WITH DIFFERENTIAL (07/06/2006 8:51 PM PORCELAIN BUILDUP ASSISTANT) WBC 4.6 4.0 - 9.8 K/uL INTERFACE [...] 12.4 fL INTERFACE SYSTEM 07/06/2006 8:51 PM PORCELAIN BUILDUP ASSISTANT Nabil Shukla MD HEMATOLOGY ORDERABLES Edited INTERFACE SYSTEM Refer to clinic/hospital department * C-REACTIVE PROTEIN (07/06/2006 8:51 PM PORCELAIN BUILDUP ASSISTANT) CRP 0.3 0.0 - 0.8 mg/dL INTERFACE SYSTEM 07/06/2006 8:51 PM PORCELAIN BUILDUP ASSISTANT Nabil Shukla MD CHEMISTRY ORDERABLES Edited Performing Organization Address [facility] de Phone Number INTERFACE SYSTEM Refer to clinic/hospital department * PROTIME-INR (07/06/2006 8:51 PM PORCELAIN BUILDUP ASSISTANT) PROTIME 14.4 12.7 - 15.1 Seconds INTERFACE SYSTEM INR 1.1 0.9 - 1.1 INTERFACE SYSTEM Comment: INR Therapeutic Range: Adult: 2.0 - 3.0 for pulmonary embolism or prophylaxis against venous thrombosis or systemic embolization. 2.0 - 3.0 for patients with tissue heart valves. 2.5 - 3.5 for patients with mechanical heart valves or post OK. Pediatric (12 years and under): 1.5 - 3.0 Although the target range in children is not well established , INR values of 1.5 - 3.0 are recommended for most patients. Higher values have been used in children with prosthetic cardiac valves and hereditary clotting disorders. (<3 days) therapeutic ranges have not been established. 07/06/2006 8:51 PM PORCELAIN BUILDUP ASSISTANT Nabil Shukla MD HEMATOLOGY ORDERABLES Edited Performing Organization Address [facility] Co de Phone Number INTERFACE SYSTEM Refer to clinic/hospital department * (ABNORMAL) BASIC METABOLIC PANEL (07/06/2006 8:51 PM PORCELAIN BUILDUP ASSISTANT) GLUCOSE 114(H) 65 - 99 mg/dL INTERFACE [...] and non- Americans is available on the [facility] Intranet at: [email or web address] Select: Lab Policies and Procedures Select: Reference Ranges - GFR 07/06/2006 8:51 PM PORCELAIN BUILDUP ASSISTANT Nabil Shukla MD CHEMISTRY ORDERABLES Edited INTERFACE SYSTEM Refer to clinic/hospital department documented in this encounter Visit Diagnoses Diagnosis Unspecified transient cerebral ischemia- Primary documented in this encounter Care Teams Entry Level Software Developer Relationship Specialty [place] [address] [address] PCP - General 10/09/05 documented as of this encounter
--- OUTSIDE RECORDS SUMMARY | 2024-11-06 20:17 | XMS_ITS | Encounter Summary ---
Author Organization [employer] Address [address] [place] [address] Care Team Providers Care Medical Billing Clerk Name Role Phone Emeka Ibanez MD Primary Care Provider [phone] Encounter Details Date Type Department Care Team (Late st Contact Info) Description 07/07/[address] [facility] Division of Neurology [address] [facility], [address] [address] Marybeth French MD [address] [facility] [address] [place] [address] Social History Tobacco Use Types Packs/Day Years Used Date Smoking Tobacco: Never Assessed Sex and Gender Information Value Date Recorded Sex Assigned at Not on file Legal Sex Male 5:22 AM RELIEF MANAGER Gender Identity Not on file Sexual Orientation Not on file documented as of this encounter Plan of Treatment Not on file documented as of this encounter Visit Diagnoses Not on filedocumented in this encounter Care Teams Medical Billing Clerk Relationship Specialty [place] [address] [facility] [address] [place] [address] PCP - General 10/09/05 documented as of this encounter
--- OUTSIDE RECORDS SUMMARY | 2024-11-06 20:17 | XMS_ITS | Encounter Summary ---
Author Organization [facility] Address [address] [place] [address] Care Team Providers Care Gamb Cutter Name Role Phone Emeka Ibanez MD Primary Care Provider [phone] Encounter Details Date Type Department Care Team (Late st Contact Info) Description 03/05/2007 Outpatient Historical [facility] Internal Medicine [address] [address] Emeka Ibanez MD [address] [place] [address] [phone] Social History Tobacco Use Types Packs/Day Years Used Date Smoking Tobacco: Never Assessed Sex and Gender Information Value Date Recorded Sex Assigned at Not on file Legal Sex Male 5:22 AM GLOVE SEWER Gender Identity Not on file Sexual [...] on filedocumented in this encounter Care Teams Gamb Cutter Relationship Specialty Start Date End Date Emeka Ibanez [place] [address] [place] [address] [id number] PCP - General 10/09/05 documented as of this encounter
--- OUTSIDE RECORDS SUMMARY | 2024-11-06 20:17 | XMS_ITS | Encounter Summary ---
Author Organization [facility] Address 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 [address] D.O.B: 1945 SSN: [id number] Parent/Guardian if applicable: Patient Insurance: [employer] PPO ID#: [id number] Group#: ORDER(S) #: [id number] xray of left elbow, left forearm ..... 04-01-07 letter sent PLEASE SCHEDULE THE APPOINTMENT AT THE FOLLOWING LOCATION: WHERE SCHEDULED. walk in ORDERING PHYSICIAN: JESSICA CRAIN MD OFFICE ELECTRONIC DATA PROCESSING AUDITOR & PHONE: Zuly Herman R ADDITIONAL OFFICE [...] LAB ORDERS: IN 3 MOS Order number: [id number] Test Ordered: COMPREHENSIVE METABOLIC PANEL & GFR 1112 Order number: [id number] Test Ordered: LIPID PANEL 1078 Order number: [id number] Test Ordered: PSA, TOTAL 1002 CLINICAL GUIDELINES: [...] NEW PRESCRIPTION, 03/05/2007. LAB ORDERS: Order number: [id number] Test Ordered: XRAY FOREARM LEFT Order number: [id number] Test Ordered: XRAY ELBOW LEFT PREVENTIVE COUNSELING The patient was counseled. RETURN VISIT : Patient instructed to return in 3 months. Electronically Signed by: Jessica Crain MD on Monday, March 05, 2007 documented in this encounter Plan of Treatment Not on file documented as of this encounter Visit Diagnoses Not on filedocumented in this encounter Care Teams Product Development Assistant Relationship Specialty [place] [address] [address] PCP - General 10/09/05 documented as of this encounter
--- OUTSIDE RECORDS SUMMARY | 2024-11-06 20:17 | XMS_ITS | Encounter Summary ---
Author Organization [employer] Address 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
--- OUTSIDE RECORDS SUMMARY | 2024-11-06 20:17 | XMS_ITS | Encounter Summary ---
Author Organization [facility] Address 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
--- OUTSIDE RECORDS SUMMARY | 2024-11-06 20:17 | XMS_ITS | Encounter Summary ---
Author Organization [facility] Address [address] [place] [address] Care Team Providers Care Custodian Athletic Equipment Name Role Phone Emeka Ibanez MD Primary Care Provider [phone] Encounter Details Date Type Department Care Team (Late st Contact Info) Description 07/07/2006 Outpatient Historical [facility] Support Serv. (Adt Cardiology-[facility]) [address] 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
[2024-11-06 20:21] LABS: NT Pro B Type Natriuretic Pept 2150 pg/mL (19.9-100); Troponin I < 0.012 ng/mL (0.000-0.034)
[2024-11-06] MEDS: SODIUM CHLORIDE 0.9% IV 1,000 ML 999 ML IV CONT (20:32)
[2024-11-06 20:36] LABS: Influenza A QL RT-PCR Negative (Negative); Influenza B QL RT-PCR Negative (Negative); RSV RNA, RT-PCR Negative (Negative); SARS-CoV-2 RNA PCR Negative (Negative)
[2024-11-06 20:53] LABS: D Dimer 0.98 ug/mL (<0.48)
[2024-11-06] MEDS: ASPIRIN 81 MG CHEWABLE TABLET 324 MG PO (22:46)
--- NOTE | 2024-11-06 22:53 | ECG_ITS ---
Test Date: 2024-11-06 22:50:10 Measurements Intervals [place] Rate: 45 P: 62 SD: 155 QRS: -45 QRSD: 149 T: 79 QT: 524 QTc: 455 Interpretive Statements SINUS BRADYCARDIA WITH OCCASIONAL VENTRICULAR PREMATURE COMPLEXES RIGHT BUNDLE BRANCH BLOCK LEFT ANTERIOR FASCICULAR BLOCK BASELINE ARTIFACT- V2 ABNORMAL ECG Compared to ECG 11/06/2024 17:58:18 HEART RATE HAS DECREASED Electronically Signed On 11-07-2024 06:11:21 CDT by Chidi Blackwood D.O.
[2024-11-06 23:20] LABS: Troponin I 0.013 ng/mL (0.000-0.034)
[2024-11-07 00:04] VITALS: PULSE 50; RESP 13; O2SAT 99
== END 2024-11-07 00:24 | disposition home or self-care (01) ==
PROVIDERS: Emergency Medicine; Emergency Provider Student in an Organized Health Care Education/Training Program
DX: R00.1 Bradycardia, unspecified (principal); I45.2 Bifascicular block; R07.9 Chest pain, unspecified; N17.9 Acute kidney failure, unspecified; R42 Dizziness and giddiness; I65.1 Occlusion and stenosis of basilar artery; I65.21 Occlusion and stenosis of right carotid artery; I65.02 Occlusion and stenosis of left vertebral artery; Z20.822 Contact with and (suspected) exposure to COVID-19; I25.2 Old myocardial infarction; Z95.1 Presence of aortocoronary bypass graft; Z79.02 Long term (current) use of antithrombotics/antiplatelets; Z79.899 Other long term (current) drug therapy
CPT/HCPCS: 36415; 70496; 70498; 71045; 71275; 80053; 83735; 83880; 84443; 84484; 85025; 85380; 87637; 93005; 96360; 96361; 99284; A9270; J7030; Q9967